=== PATIENT | female | born 1950 | race Caucasian/White ===

== ENCOUNTER → 2017-10-31 16:16 | Outpatient (CLI) | payer MEDICARE, MEDICAID, SELFPAY ==
[2017-10-31 16:58] LABS: Hemoglobin A1C 7.4 % (0.0-7.0)
[2017-10-31 17:09] LABS: Alanine Aminotransferase 203 U/L (12-78); Albumin Level 4.1 gm/dL (3.4-5.0); Alkaline Phosphatase 75 U/L (46-116); Anion Gap 11.3 mEq/L (5-15); Aspartate Amino Transferase 147 U/L (15-37); Bilirubin,Total 0.6 mg/dL (0.2-1.0); Blood Urea Nitrogen 16 mg/dL (7-18); Calcium 9.2 mg/dL (8.5-10.1); Carbon Dioxide 30 mmol/L (21.0-32.0); Chloride 107 mmol/L (98-107); Chol/HDL Ratio 4.8 (1-3.5); Cholesterol 184 mg/dL (140-200); Creatinine,Serum 0.65 mg/dL (0.55-1.02); Estimated Glomerular Filt Rate 90 ml/min (>60); GFR (African American) 109 ML/MIN (>60); Glucose 106 mg/dL (74-106); HDL Cholesterol 38 mg/dL (29-89); LDL Cholesterol 108 mg/dL (0-130); Potassium 4.3 mmoL/L (3.5-5.1); Sodium 144 mmol/L (136-145); Total Protein,Serum 8.1 gm/dL (6.4-8.2); Triglycerides 188 mg/dL (30-200); VLDL Cholesterol 38 mg/dL (0-40)
== END ==
PROVIDERS: Visit Provider Internal Medicine Adolescent Medicine
DX: E11.69 Type 2 diabetes mellitus with other specified complication (principal); E11.9 Type 2 diabetes mellitus without complications
CPT/HCPCS: 36415; 80053; 80061; 83036

== ENCOUNTER → 2017-11-07 08:29 | Outpatient (CLI) | payer MEDICARE, MEDICAID, SELFPAY ==
--- NOTE | 2017-11-07 09:00 | US_ITS ---
US liver & RUQ HISTORY: Abnormal LFTs. Gallbladder removed several years ago. ITS.REASON: ELEVATED LIVER ENZYMES ORDERING PHYSICIAN: Jean Kwan MD PATIENT AGE: 67 years TECHNIQUE. Ultrasound right upper quadrant performed including liver and other organs. COMPARISON: Ultrasound right upper quadrant December 2016. FINDINGS: This a difficult exam. Difficult to penetrate with ultrasound No ascites evident the abdomen PANCREAS:Not well seen but No obvious mass or abnormal fluid collection. No evident ductal dilatation LIVER:. Increased echogenicity throughout reflect a diffuse fatty change.. No focal lesions with ultrasound . I would note that in [address] studies showed a hypoechoic area at the posterior right lobe the liver on a least 2.5 cm, felt to be due to fatty sparing or hemangioma. We do not appreciate this feature on today's ultrasound the CT or MRI may be of benefit to further evaluate liver, in follow-up . No intrahepatic biliary ductal dilatation evident portal vein unremarkable normal size and flow direction Common duct normal diameter and hilum of liver roughly 3 mm. No ductal dilatation. RIGHT KIDNEY:Unremarkable. Normal size and echogenicity. No hydronephrosis GALLBLADDER:Surgically removed. . IMPRESSION:========= 1. Prominent diffuse fatty changes in liver. Hepatic steatosis. This makes it somewhat difficult to penetrate liver ultrasound imaging. Note comments in text.-may want to consider a follow-up CT or MRI to further better image the liver 2. Gallbladder surgically removed. No biliary ductal dilatation
== END ==
PROVIDERS: Family Provider Internal Medicine Adolescent Medicine; PCP Internal Medicine Adolescent Medicine; Visit Provider Internal Medicine Adolescent Medicine
DX: R74.8 Abnormal levels of other serum enzymes (principal)
CPT/HCPCS: 76705

== ENCOUNTER → 2017-11-17 09:31 | Outpatient (CLI) | payer MEDICARE, MEDICAID, SELFPAY ==
--- NOTE | 2017-11-17 09:32 | MR_ITS ---
MR abdomen wo/w con HISTORY: ITS.REASON: ELEVATED LIVER ENZYMES, LIVER MASS, prior abnormal CT scan ORDERING PHYSICIAN: Jean Kwan MD PATIENT AGE: 67 years Comparison: CT scan of 03/29/2014 TECHNIQUE: Standard multiplanar multiecho sequences are performed without and with gadolinium enhancement. FINDINGS: Within the hepatic dome posteriorly there is a 1.6 cm macrolobulated lesion which demonstrates decreased T1 and intense increased T2 signal. This corresponds to the previously described abnormality on the CT scan. This shows some delayed enhancement. There is a mild degree of motion artifact which does somewhat obscure fine detail. No other liver lesions are evident. The spleen, adrenal glands, kidneys and pancreas have an unremarkable appearance. No biliary dilatation. There has been prior cholecystectomy. IMPRESSION: 1.6 cm macro lobular lesion involves the posterior segment of the right hepatic lobe/segment 7 superiorly showing delayed enhancement as well as increased T2 and increased diffusion signal. This may represent a hemangioma. Recommend 6 month follow-up to confirm stability.
--- NOTE | 2017-11-17 10:57 | HMH.ITSHM ---
METFORMIN LISINOPRIL LOVADINE DIGOXIN
== END ==
PROVIDERS: Family Provider Internal Medicine Adolescent Medicine; PCP Internal Medicine Adolescent Medicine; Visit Provider Internal Medicine Adolescent Medicine
DX: R16.0 Hepatomegaly, not elsewhere classified (principal); R74.8 Abnormal levels of other serum enzymes
CPT/HCPCS: 74183; A9576

== ENCOUNTER → 2018-02-04 10:33 | Outpatient (CLI) | payer MEDICARE, MEDICAID, SELFPAY ==
[2018-02-04 12:49] LABS: Hemoglobin A1C 7.2 % (0.0-7.0)
[2018-02-04 12:59] LABS: Alanine Aminotransferase 201 U/L (12-78); Alkaline Phosphatase 68 U/L (46-116); Anion Gap 9.4 mEq/L (5-15); Aspartate Amino Transferase 127 U/L (15-37); Bilirubin,Total 0.4 mg/dL (0.2-1.0); Blood Urea Nitrogen 19 mg/dL (7-18); Calcium 8.9 mg/dL (8.5-10.1); Carbon Dioxide 31 mmol/L (21.0-32.0); Chloride 102 mmol/L (98-107); Creatinine,Serum 0.58 mg/dL (0.55-1.02); Estimated Glomerular Filt Rate 103 ml/min (>60); GFR (African American) 125 ML/MIN (>60); Globulin 3.9 gm/dl (1.3-3.2); Glucose 127 mg/dL (74-106); Potassium 4.4 mmoL/L (3.5-5.1); Sodium 138 mmol/L (136-145); Total Protein,Serum 7.9 gm/dL (6.4-8.2)
== END ==
PROVIDERS: PCP Internal Medicine Adolescent Medicine; Visit Provider Internal Medicine Adolescent Medicine
DX: E11.9 Type 2 diabetes mellitus without complications (principal)
CPT/HCPCS: 36415; 80053; 83036

== ENCOUNTER → 2018-02-13 13:16 | Outpatient (CLI) | payer MEDICARE, MEDICAID, SELFPAY ==
[2018-02-13 13:53] LABS: Basophils % 0.3 % (0.1-2.0); Eosinophils % 0.4 % (0.1-12.0); Hematocrit 41.4 % (37.0-47.0); Hemoglobin 13.5 g/dL (12.2-16.2); Lymphocytes % 19.4 K/mm3 (10-50); Mean Corpuscular HGB Conc 32.5 g/dL (31.8-35.4); Mean Corpuscular Hemoglobin 29.6 pg (27.0-31.2); Mean Corpuscular Volume 91.2 fl (81-99); Mean Platelet Volume 9.3 fl (7.4-10.4); Monocytes # 0.5 K/mm3 (0.1-1.0); Monocytes % 4.7 % (1.7-9.3); Neutrophils # 7.6 K/mm3 (1.8-7.8); Neutrophils % 75.1 % (37.0-80.0); Platelet Count 166 K/mm3 (142-424); Red Blood Count 4.54 M/mm3 (4.20-5.40); White Blood Count 10.1 K/mm3 (4.8-10.8)
[2018-02-13 17:38] LABS: Alanine Aminotransferase 200 U/L (12-78); Albumin Level 4.2 gm/dL (3.4-5.0); Alkaline Phosphatase 69 U/L (46-116); Anion Gap 13.4 mEq/L (5-15); Aspartate Amino Transferase 138 U/L (15-37); Bilirubin,Total 0.6 mg/dL (0.2-1.0); Blood Urea Nitrogen 19 mg/dL (7-18); Carbon Dioxide 29 mmol/L (21.0-32.0); Chloride 103 mmol/L (98-107); Estimated Glomerular Filt Rate 83 ml/min (>60); GFR (African American) 100 ML/MIN (>60); Globulin 4.2 gm/dl (1.3-3.2); Glucose 112 mg/dL (74-106); Potassium 4.4 mmoL/L (3.5-5.1); Sodium 141 mmol/L (136-145); Total Protein,Serum 8.4 gm/dL (6.4-8.2)
== END ==
PROVIDERS: PCP Internal Medicine Adolescent Medicine; Visit Provider Internal Medicine Adolescent Medicine
DX: E11.9 Type 2 diabetes mellitus without complications (principal); R94.5 Abnormal results of liver function studies
CPT/HCPCS: 36415; 80053; 83036; 85025

== ENCOUNTER → 2018-02-27 13:07 | Outpatient (POV) | payer MEDICARE, MEDICAID, SELFPAY ==
[2018-02-27 16:19] LABS: Basophils % 0.5 % (0.1-2.0); Eosinophils # 0.1 K/mm3 (0.0-0.4); Eosinophils % 0.6 % (0.1-12.0); Hematocrit 38.3 % (37.0-47.0); Hemoglobin 12.6 g/dL (12.2-16.2); Lymphocytes # 2.3 K/mm3 (0.7-4.5); Lymphocytes % 26.3 % (10-50); Mean Corpuscular Hemoglobin 29.7 pg (27.0-31.2); Mean Corpuscular Volume 90.1 fl (81-99); Mean Platelet Volume 9.6 fl (7.4-10.4); Monocytes # 0.4 K/mm3 (0.1-1.0); Monocytes % 4.6 % (1.7-9.3); Neutrophils # 5.9 K/mm3 (1.8-7.8); Platelet Count 156 K/mm3 (142-424); Red Blood Count 4.25 M/mm3 (4.20-5.40); Red Cell Distribution Width 13.2 % (11.5-17.5); White Blood Count 8.7 K/mm3 (4.8-10.8)
[2018-02-27 16:22] LABS: INR 0.99 (0.9-1.1); Prothrombin Time 10.2 seconds (9.4-11.8)
[2018-02-27 17:17] LABS: Alanine Aminotransferase 205 U/L (12-78); Alkaline Phosphatase 69 U/L (46-116); Anion Gap 13.1 mEq/L (5-15); Aspartate Amino Transferase 157 U/L (15-37); Bilirubin,Total 0.6 mg/dL (0.2-1.0); Blood Urea Nitrogen 16 mg/dL (7-18); Calcium 8.9 mg/dL (8.5-10.1); Carbon Dioxide 30 mmol/L (21.0-32.0); Chloride 101 mmol/L (98-107); Creatinine,Serum 0.68 mg/dL (0.55-1.02); Estimated Glomerular Filt Rate 86 ml/min (>60); Ferritin 343 ng/mL (8-388); GFR (African American) 104 ML/MIN (>60); Glucose 100 mg/dL (74-106); Potassium 4.1 mmoL/L (3.5-5.1); Sodium 140 mmol/L (136-145)
[2018-03-01 09:16] LABS: Iron 59 ug/dL (27-139); UIBC 218 ug/dL (118-369)
[2018-03-01 09:18] LABS: Iron Saturation 21 % (15-55)
[2018-03-01 11:18] LABS: Ceruloplasmin 22.5 mg/dL (19.0-39.0); Hep A Ab, IgM Negative (Negative); Hepatitis B Core Antibody IgM Negative (Negative); Hepatitis B Surface Antigen Negative (Negative); Immunoglobulin A, Qn 169 mg/dL (87-352); Immunoglobulin G, Qn 1876 mg/dL (700-1600)
[2018-03-01 15:18] LABS: Angiotensin Converting Enzyme <15 U/L (14-82)
[2018-03-02 06:59] LABS: Actin (Smooth Muscle) Antibody 7 Units (0-19); Antinuclear Antibodies, IFA Positive (.); Deamidated Gliadin Abs, IgA 3 units (0-19); Deamidated Gliadin Abs, IgG 2 units (0-19); Endomysial IgA Antibody Negative (Negative); Hepatitis C Antibody <0.1 s/co ratio (0.0-0.9); Immunoglobulin M, Qn 78 mg/dL (26-217); Liver-Kidney Microsomal Ab <1.0 Units (0.0-20.0); Mitochondrial (M2) Antibody <20.0 Units (0.0-20.0); Tissue Transglutaminase IgA Ab <2 U/mL (0-3); Tissue Transglutaminase IgG Ab <2 U/mL (0-5)
[2018-03-03 07:05] LABS: Reticulin IgA Antibody Negative titer (Neg:<1:2.5)
[2018-03-04 09:27] LABS: ALT (SGPT) P5P 184 IU/L (0-40); AST (SGOT) P5P 164 IU/L (0-40); Alpha 2-Macroglobulins, Qn 143 mg/dL (110-276); Apolipoprotein A-1 131 mg/dL (116-209); Bilirubin, Total 0.3 mg/dL (0.0-1.2); Cholesterol, Total 163 mg/dL (100-199); GGT 89 IU/L (0-60); Glucose 104 mg/dL (65-99); Haptoglobin 138 mg/dL (34-200); NASH Score 0.75 (0.25); Steatosis Score 0.89 (0.00-0.30); Triglycerides 177 mg/dL (0-149)
[2018-03-06 13:18] LABS: Alpha-1-Antitrypsin 166 mg/dL (90-200)
== END ==
PROVIDERS: Visit Provider Nurse Practitioner Acute Care
DX: K76.0 Fatty (change of) liver, not elsewhere classified (principal); R94.5 Abnormal results of liver function studies
CPT/HCPCS: 36415; 80053; 80074; 81256; 82103; 82104; 82164; 82390; 82728; 82784; 83516; 83540; 83550; 85025; 85610; 86038; 86255; 86256; 86376

== ENCOUNTER → 2018-05-01 10:46 | Outpatient (POV) | payer MEDICARE, MEDICAID, SELFPAY ==
[2018-05-01 11:49] LABS: Basophils # 0.1 K/mm3 (0-0.2); Basophils % 0.5 % (0.1-2.0); Eosinophils # 0.1 K/mm3 (0.0-0.4); Eosinophils % 0.8 % (0.1-12.0); Hematocrit 41.5 % (37.0-47.0); Hemoglobin 13.5 g/dL (12.2-16.2); Lymphocytes # 2.1 K/mm3 (0.7-4.5); Lymphocytes % 23.7 % (10-50); Mean Corpuscular HGB Conc 32.5 g/dL (31.8-35.4); Mean Corpuscular Hemoglobin 29.9 pg (27.0-31.2); Mean Platelet Volume 9.4 fl (7.4-10.4); Monocytes # 0.6 K/mm3 (0.1-1.0); Monocytes % 6.4 % (1.7-9.3); Neutrophils % 68.6 % (37.0-80.0); Platelet Count 140 K/mm3 (142-424); Red Blood Count 4.51 M/mm3 (4.20-5.40); Red Cell Distribution Width 13.5 % (11.5-17.5); White Blood Count 8.7 K/mm3 (4.8-10.8)
[2018-05-01 12:30] LABS: Hemoglobin A1C 7.2 % (0.0-7.0)
[2018-05-01 15:04] LABS: Alanine Aminotransferase 225 U/L (12-78); Albumin Level 3.9 gm/dL (3.4-5.0); Albumin/Globulin Ratio 0.9 (1.1-1.8); Alkaline Phosphatase 93 U/L (46-116); Anion Gap 11.2 mEq/L (5-15); Aspartate Amino Transferase 134 U/L (15-37); Bilirubin,Total 0.4 mg/dL (0.2-1.0); Blood Urea Nitrogen 22 mg/dL (7-18); Calcium 8.3 mg/dL (8.5-10.1); Carbon Dioxide 29 mmol/L (21.0-32.0); Chloride 103 mmol/L (98-107); Creatinine,Serum 0.66 mg/dL (0.55-1.02); Estimated Glomerular Filt Rate 89 ml/min (>60); GFR (African American) 107 ML/MIN (>60); Globulin 4.2 gm/dl (1.3-3.2); Glucose 144 mg/dL (74-106); Potassium 4.2 mmoL/L (3.5-5.1); Sodium 139 mmol/L (136-145); Total Protein,Serum 8.1 gm/dL (6.4-8.2)
== END ==
PROVIDERS: Visit Provider Nurse Practitioner Acute Care
DX: R94.5 Abnormal results of liver function studies (principal); Z79.899 Other long term (current) drug therapy
CPT/HCPCS: 36415; 80053; 83036; 85025

== ENCOUNTER → 2018-06-06 09:49 | Outpatient (CLI) | payer MEDICARE, MEDICAID, SELFPAY ==
[2018-06-06 10:56] LABS: Basophils % 0.4 % (0.1-2.0); Eosinophils # 0.1 K/mm3 (0.0-0.4); Eosinophils % 0.6 % (0.1-12.0); Hematocrit 40.2 % (37.0-47.0); Lymphocytes % 21.7 % (10-50); Mean Corpuscular HGB Conc 32.2 g/dL (31.8-35.4); Mean Corpuscular Hemoglobin 29.9 pg (27.0-31.2); Mean Corpuscular Volume 92.9 fl (81-99); Mean Platelet Volume 9.3 fl (7.4-10.4); Monocytes # 0.5 K/mm3 (0.1-1.0); Monocytes % 4.8 % (1.7-9.3); Neutrophils # 6.8 K/mm3 (1.8-7.8); Neutrophils % 72.5 % (37.0-80.0); Platelet Count 142 K/mm3 (142-424); Red Blood Count 4.33 M/mm3 (4.20-5.40); Red Cell Distribution Width 13.3 % (11.5-17.5); White Blood Count 9.4 K/mm3 (4.8-10.8)
[2018-06-06 11:17] LABS: Alanine Aminotransferase 254 U/L (12-78); Albumin Level 3.8 gm/dL (3.4-5.0); Alkaline Phosphatase 64 U/L (46-116); Anion Gap 10.1 mEq/L (5-15); Aspartate Amino Transferase 145 U/L (15-37); Bilirubin,Total 0.4 mg/dL (0.2-1.0); Blood Urea Nitrogen 20 mg/dL (7-18); Carbon Dioxide 32 mmol/L (21.0-32.0); Chloride 102 mmol/L (98-107); Creatinine,Serum 0.66 mg/dL (0.55-1.02); Estimated Glomerular Filt Rate 89 ml/min (>60); GFR (African American) 107 ML/MIN (>60); Globulin 3.8 gm/dl (1.3-3.2); Glucose 125 mg/dL (74-106); Potassium 4.1 mmoL/L (3.5-5.1); Sodium 140 mmol/L (136-145); Total Protein,Serum 7.6 gm/dL (6.4-8.2)
== END ==
PROVIDERS: Visit Provider Nurse Practitioner Acute Care
DX: R94.5 Abnormal results of liver function studies (principal)
CPT/HCPCS: 36415; 80053; 85025

== ENCOUNTER → 2018-06-26 10:59 | Outpatient (CLI) | payer MEDICARE, MEDICAID, SELFPAY ==
--- NOTE | 2018-06-26 11:03 | MM_ITS ---
MM Dig screening mamm BI w/CAD CAD Screening COMPARISON: Digital mammograms with CAD 05/12/2015 and 05/19/2016 INDICATION: There is a history of breast cancer patient's mother. There has been previous biopsy right breast for benign disease. TECHNIQUE: Standard CC and MLO images were obtained. R2 CAD reviewed. FINDINGS: The nipples are somewhat inverted have been for quite some time. Moderate post biopsy scarring is seen upper outer quadrant right breast. Moderate somewhat heterogenic fibroglandular densities are seen in the central portions of both breasts. There are scattered microcalcifications in each breast. There is a mole marker left breast. There are no suspicious microcalcifications. IMPRESSION: Stable exam no suspicious lesion seen. BI-RADS Category: 1 Negative RECOMMENDED FOLLOW-UP: 1YR - 1 YEAR FOLLOW-UP (A letter has been sent to the patient regarding results of the study.)
[2018-06-26 12:00] LABS: Basophils % 0.4 % (0.1-2.0); Eosinophils # 0.1 K/mm3 (0.0-0.4); Eosinophils % 0.6 % (0.1-12.0); Hematocrit 38.8 % (37.0-47.0); Hemoglobin 12.8 g/dL (12.2-16.2); Lymphocytes # 2.4 K/mm3 (0.7-4.5); Lymphocytes % 23.7 % (10-50); Mean Corpuscular Hemoglobin 30.3 pg (27.0-31.2); Mean Corpuscular Volume 91.7 fl (81-99); Mean Platelet Volume 9.3 fl (7.4-10.4); Monocytes # 0.5 K/mm3 (0.1-1.0); Monocytes % 4.9 % (1.7-9.3); Neutrophils # 7.2 K/mm3 (1.8-7.8); Neutrophils % 70.4 % (37.0-80.0); Platelet Count 147 K/mm3 (142-424); Red Blood Count 4.23 M/mm3 (4.20-5.40); Red Cell Distribution Width 13.8 % (11.5-17.5); White Blood Count 10.3 K/mm3 (4.8-10.8)
[2018-06-26 12:34] LABS: Alanine Aminotransferase 244 U/L (12-78); Albumin Level 3.8 gm/dL (3.4-5.0); Alkaline Phosphatase 65 U/L (46-116); Anion Gap 12.4 mEq/L (5-15); Aspartate Amino Transferase 136 U/L (15-37); Bilirubin,Total 0.5 mg/dL (0.2-1.0); Blood Urea Nitrogen 20 mg/dL (7-18); Calcium 9.4 mg/dL (8.5-10.1); Carbon Dioxide 30 mmol/L (21.0-32.0); Chloride 102 mmol/L (98-107); Creatinine,Serum 0.65 mg/dL (0.55-1.02); Estimated Glomerular Filt Rate 90 ml/min (>60); GFR (African American) 109 ML/MIN (>60); Globulin 3.8 gm/dl (1.3-3.2); Glucose 106 mg/dL (74-106); Potassium 4.4 mmoL/L (3.5-5.1); Sodium 140 mmol/L (136-145); Total Protein,Serum 7.6 gm/dL (6.4-8.2)
== END ==
PROVIDERS: Nurse Practitioner Acute Care; PCP Internal Medicine Adolescent Medicine; Visit Provider Internal Medicine Adolescent Medicine
DX: Z12.31 Encounter for screening mammogram for malignant neoplasm of breast (principal); R94.5 Abnormal results of liver function studies
CPT/HCPCS: 36415; 77067; 80053; 85025

== ENCOUNTER → 2018-08-02 13:16 | Outpatient (CLI) | payer MEDICARE, MEDICAID, SELFPAY ==
[2018-08-02 13:35] LABS: Basophils % 0.3 % (0.1-2.0); Eosinophils % 0.5 % (0.1-12.0); Hematocrit 36.4 % (37.0-47.0); Hemoglobin 12.2 g/dL (12.2-16.2); Lymphocytes # 0.8 K/mm3 (0.7-4.5); Mean Corpuscular HGB Conc 33.5 g/dL (31.8-35.4); Mean Corpuscular Hemoglobin 30.1 pg (27.0-31.2); Mean Corpuscular Volume 89.8 fl (81-99); Mean Platelet Volume 9.5 fl (7.4-10.4); Monocytes # 0.3 K/mm3 (0.1-1.0); Monocytes % 4.9 % (1.7-9.3); Neutrophils # 5.4 K/mm3 (1.8-7.8); Neutrophils % 82.3 % (37.0-80.0); Platelet Count 143 K/mm3 (142-424); Red Blood Count 4.05 M/mm3 (4.20-5.40); Red Cell Distribution Width 13.4 % (11.5-17.5); White Blood Count 6.5 K/mm3 (4.8-10.8)
[2018-08-02 19:06] LABS: Alanine Aminotransferase 179 U/L (12-78); Albumin Level 4.1 gm/dL (3.4-5.0); Albumin/Globulin Ratio 1.1 (1.1-1.8); Alkaline Phosphatase 56 U/L (46-116); Anion Gap 11.9 mEq/L (5-15); Aspartate Amino Transferase 124 U/L (15-37); Bilirubin,Total 0.6 mg/dL (0.2-1.0); Blood Urea Nitrogen 17 mg/dL (7-18); Calcium 9.2 mg/dL (8.5-10.1); Carbon Dioxide 30 mmol/L (21.0-32.0); Chloride 102 mmol/L (98-107); Creatinine,Serum 0.63 mg/dL (0.55-1.02); Estimated Glomerular Filt Rate 93 ml/min (>60); GFR (African American) 113 ML/MIN (>60); Globulin 3.6 gm/dl (1.3-3.2); Glucose 146 mg/dL (74-106); Magnesium 1.8 mg/dL (1.4-2.2); Potassium 3.9 mmoL/L (3.5-5.1); Sodium 140 mmol/L (136-145); Total Protein,Serum 7.7 gm/dL (6.4-8.2)
== END ==
PROVIDERS: Visit Provider Internal Medicine Adolescent Medicine
DX: R55 Syncope and collapse (principal); R42 Dizziness and giddiness
CPT/HCPCS: 36415; 80053; 83735; 85025

== ENCOUNTER 2018-08-18 05:00 | Emergency (ER) | payer MEDICARE, MEDICAID, SELFPAY ==
[2018-08-18 05:05] VITALS: BP 175/88; PULSE 66; RESP 18; TEMP 36.8; O2SAT 99; BMI 26.9
--- NOTE | 2018-08-18 05:20 | XR_ITS ---
XR shoulder RT min 2V HISTORY: Posttraumatic pain ITS.REASON: fall ORDERING PHYSICIAN: Shaheen Laura MD PATIENT AGE: 68 years Comparison: None FINDINGS: There are mild osteoarthritic changes of the acromioclavicular joint and glenohumeral joint. No fracture or dislocation. IMPRESSION: No acute finding. Osteoarthritis
--- NOTE | 2018-08-18 06:00 | HMH.EDGENADL ---
ED Disposition Clinical Impression: Shoulder pain, right Qualifiers: Chronicity: acute Qualified Code(s): M25.511 - Pain in right shoulder Disposition: Home, Self-Care Condition on Discharge: Good Instructions: DI for Shoulder Pain Additional Instructions: ice and sling and see ortho today Referrals: Jean Kwan MD [Primary Care Provider] - - Critical Care Critical Care Time: No Attestation: On 08/18/18, the high probability of a clinically significant, sudden or life threatening deterioration of the following system(s) required my full and direct attention, intervention and personal management. The time I documented below is in addition to time spent performing reported procedures but includes the following listed in this critical care notation. Medical Decision Making - Medical Records Medical records reviewed: Yes: I reviewed the patient's medical records. - Andrzej Inquiry Pt receiving controlled substance: No Vital Signs: 08/18/18 05:05 Temperature 98.3 F Temperature Source Oral Pulse Rate [Left] 66 Respiratory Rate 18 Blood Pressure [Left Arm] 175/88 H Blood Pressure Mean [Left Arm] 117 Blood Pressure Source [Left Arm] Automatic Cuff Blood Pressure Position [Left Arm] Sitting 02 Sat by Pulse Oximetry 99 Oxygen Delivery Method Room Air Orders (Tests/Meds): ED MEDICATIONS Generic Name Dose Route Start Last Admin Trade Name Freq PRN Reason Stop Dose Admin Acetaminophen/Codeine Phosphate 1 kasandra 08/18/18 06:26 Acetaminophen W/Codeine #3 Take Home Pack (6) PO 08/18/18 06:27 ONCE ONE Discontinued Medications Generic Name Dose Route Start Last Admin Trade Name Freq PRN Reason Stop Dose Admin Dexamethasone Sodium Phosphate 8 mg 08/18/18 06:20 Decadron 4mg/Ml 1ml Vial IM 08/18/18 06:21 ONCE ONE Ketorolac Tromethamine 60 mg 08/18/18 06:20 Toradol 60mg/2ml Vial IM 08/18/18 06:21 ONCE ONE - Radiology Data #1 Image(s): Shoulder Image Reviewed: Yes I reviewed the patient's radiology image Preliminary Findings: Abnormal, No Fracture Seen - Physician Consults Physician Consulted: maritza Reason -: Pt condition General Adult HPI - General Chief complaint: PAIN Stated complaint: Right shoulder pain, fell 2 wks ago Time Seen by Provider: 08/18/18 05:30 Mode of Arrival: Ambulatory Source of Information: Patient, Medical Record Limitations: No Limitations Description of Symptoms (Recalled from ER Triage Doc. by RN): Fell 2 weeks ago and now right shoulder pain - History of Present Illness HPI narrative: fell 2 weeks ago with injury rt shoulder and increasing pain till no mov today and marked inc pain Onset (ago): day(s) Location: upper extremity Severity: moderate Consistency: constant Associated symptoms: denies other symptoms Treatments prior to arrival: none - Related Data Home Medications Medication Instructions Recorded Confirmed Digoxin [Digoxin 0.25mg Tablet] 250 mcg PO DAILY 02/01/18 08/18/18 Loratadine [Allerclear] 10 mg PO DAILY 02/01/18 08/18/18 Metoprolol Tartrate [Lopressor 12.5 mg PO DAILY 02/01/18 08/18/18 25mg tablet] Oxybutynin Chloride [Ditropan 5mg 5 mg PO BID 02/01/18 08/18/18 tablet] Venlafaxine HCl 50 mg PO BID 02/01/18 08/18/18 Ascorbate Calcium [Vitamin C] 500 mg PO DAILY 04/04/18 08/18/18 Lisinopril [Lisinopril 2.5mg Tab] 2.5 mg PO BID 04/04/18 08/18/18 Quetiapine Fumarate [Seroquel] 50 mg PO BID 04/04/18 08/18/18 LORazepam [Ativan 0.5mg 0.5 mg PO BID PRN 04/07/18 08/18/18 tablet] budesonide DR - ER 3 mg 3 mg PO DAILY 30 Days each 07/11/18 08/18/18 capsule,delayed,extended release metformin 500 mg tablet 850 mg PO BID 30 Days tab 07/11/18 08/18/18 Allergies Allergy/AdvReac Type Severity Reaction Status Date / Time acetaminophen [ACETAMINOPHEN] Allergy Mild Verified 07/11/18 09:04 aspirin Allergy Verified 07/11/18 09:04 [facility] History - Hepatitis A Screen Drug use hi
--- NOTE | 2018-08-18 06:22 | PC.NURSE ---
speaking with Dr. Garcia
[2018-08-18 06:53] VITALS: BP 156/70; PULSE 70; RESP 16; TEMP 36.9; O2SAT 98
== END 2018-08-18 06:54 | disposition home or self-care (01) ==
PROVIDERS: Emergency Provider Emergency Medicine; PCP Internal Medicine Adolescent Medicine
DX: M25.511 Pain in right shoulder (principal); I10 Essential (primary) hypertension; E11.9 Type 2 diabetes mellitus without complications; F41.9 Anxiety disorder, unspecified; Z90.49 Acquired absence of other specified parts of digestive tract
CPT/HCPCS: 73030; 96372; 99283

== ENCOUNTER → 2018-10-24 10:07 | Outpatient (CLI) | payer MEDICARE, MEDICAID, SELFPAY ==
[2018-10-24 11:01] LABS: Alanine Aminotransferase 134 U/L (12-78); Albumin Level 3.8 gm/dL (3.4-5.0); Albumin/Globulin Ratio 1.1 (1.1-1.8); Alkaline Phosphatase 62 U/L (46-116); Anion Gap 9.9 mEq/L (5-15); Aspartate Amino Transferase 95 U/L (15-37); Bilirubin,Total 0.4 mg/dL (0.2-1.0); Blood Urea Nitrogen 17 mg/dL (7-18); Carbon Dioxide 33 mmol/L (21.0-32.0); Chloride 104 mmol/L (98-107); Creatinine,Serum 0.66 mg/dL (0.55-1.02); Estimated Glomerular Filt Rate 89 ml/min (>60); GFR (African American) 107 ML/MIN (>60); Globulin 3.6 gm/dl (1.3-3.2); Glucose 98 mg/dL (74-106); Potassium 4.9 mmoL/L (3.5-5.1); Sodium 142 mmol/L (136-145); Total Protein,Serum 7.4 gm/dL (6.4-8.2)
== END ==
PROVIDERS: Visit Provider Internal Medicine Gastroenterology
DX: R94.5 Abnormal results of liver function studies (principal); K75.81 Nonalcoholic steatohepatitis (NASH)
CPT/HCPCS: 36415; 80053

== ENCOUNTER → 2019-01-10 09:48 | Outpatient (CLI) | payer MEDICARE, MEDICAID, SELFPAY ==
[2019-01-10 11:35] LABS: Alanine Aminotransferase 116 U/L (12-78); Alkaline Phosphatase 59 U/L (46-116); Anion Gap 11.5 mEq/L (5-15); Aspartate Amino Transferase 92 U/L (15-37); Bilirubin,Total 0.3 mg/dL (0.2-1.0); Blood Urea Nitrogen 21 mg/dL (7-18); Calcium 9.4 mg/dL (8.5-10.1); Carbon Dioxide 31 mmol/L (21.0-32.0); Chloride 101 mmol/L (98-107); Creatinine,Serum 0.64 mg/dL (0.55-1.02); Estimated Glomerular Filt Rate 92 ml/min (>60); GFR (African American) 111 ML/MIN (>60); Glucose 109 mg/dL (74-106); Potassium 4.5 mmoL/L (3.5-5.1); Sodium 139 mmol/L (136-145)
== END ==
PROVIDERS: Visit Provider Internal Medicine Gastroenterology
DX: R94.5 Abnormal results of liver function studies (principal); K75.81 Nonalcoholic steatohepatitis (NASH)
CPT/HCPCS: 36415; 80053

== ENCOUNTER → 2019-04-16 11:19 | Outpatient (CLI) | payer MEDICARE, OTHER, SELFPAY ==
[2019-04-16 11:53] LABS: Basophils % 0.3 % (0.1-2.0); Eosinophils % 0.1 % (0.1-12.0); Hematocrit 42.4 % (37.0-47.0); Hemoglobin 13.2 g/dL (12.2-16.2); Lymphocytes # 1.3 K/mm3 (0.7-4.5); Lymphocytes % 10.3 % (10-50); Mean Corpuscular HGB Conc 31.2 g/dL (31.8-35.4); Mean Corpuscular Hemoglobin 28.6 pg (27.0-31.2); Mean Corpuscular Volume 91.6 fl (81-99); Mean Platelet Volume 9.1 fl (7.4-10.4); Monocytes # 0.6 K/mm3 (0.1-1.0); Monocytes % 5.3 % (1.7-9.3); Neutrophils # 10.2 K/mm3 (1.8-7.8); Platelet Count 192 K/mm3 (142-424); Red Blood Count 4.63 M/mm3 (4.20-5.40); Red Cell Distribution Width 13.9 % (11.5-17.5); White Blood Count 12.2 K/mm3 (4.8-10.8)
[2019-04-16 12:41] LABS: Alanine Aminotransferase 146 U/L (12-78); Albumin Level 4.4 gm/dL (3.4-5.0); Albumin/Globulin Ratio 1.1 (1.1-1.8); Alkaline Phosphatase 64 U/L (46-116); Anion Gap 14.4 mEq/L (5-15); Aspartate Amino Transferase 99 U/L (15-37); Bilirubin,Total 0.5 mg/dL (0.2-1.0); Blood Urea Nitrogen 18 mg/dL (7-18); Calcium 9.1 mg/dL (8.5-10.1); Carbon Dioxide 29 mmol/L (21.0-32.0); Chloride 102 mmol/L (98-107); Estimated Glomerular Filt Rate 82 ml/min (>60); GFR (African American) 100 ML/MIN (>60); Globulin 3.9 gm/dl (1.3-3.2); Glucose 145 mg/dL (74-106); Potassium 4.4 mmoL/L (3.5-5.1); Sodium 141 mmol/L (136-145); Total Protein,Serum 8.3 gm/dL (6.4-8.2)
== END ==
PROVIDERS: PCP Internal Medicine Adolescent Medicine; Visit Provider Internal Medicine Gastroenterology
DX: E11.9 Type 2 diabetes mellitus without complications (principal); I10 Essential (primary) hypertension; K75.81 Nonalcoholic steatohepatitis (NASH); R94.5 Abnormal results of liver function studies; Z79.84 Long term (current) use of oral hypoglycemic drugs
CPT/HCPCS: 36415; 80053; 83036; 85025

== ENCOUNTER → 2019-06-25 08:50 | Outpatient (CLI) | payer MEDICARE, OTHER, SELFPAY | PROVIDERS: PCP Internal Medicine Adolescent Medicine; Visit Provider Internal Medicine Adolescent Medicine | DX: Z12.31 Encounter for screening mammogram for malignant neoplasm of breast (principal) ==

== ENCOUNTER → 2019-07-17 09:18 | Outpatient (CLI) | payer MEDICARE, OTHER, SELFPAY ==
--- NOTE | 2019-07-17 09:21 | MM_ITS ---
PROCEDURE: MM DIG SCREENING MAMM BI W/CAD Digital Breast Tomosynthesis Included CLINICAL INDICATION: SCREENING COMPARISON: [facility] DIG MAMM-SCREEN SHARA from 05/12/2015 [facility] DIG MAMM-SCREEN SHARA W/CAD from 05/19/2016 [facility] MM Dig screening mamm BI w/CAD from 06/26/2018 TECHNIQUE: Standard CC and MLO images and 3D Tomosynthesis was obtained. R2 CAD reviewed. FINDINGS: The breasts are heterogeneously dense. Nipples are inverted similar to previous exams. Post biopsy scarring is seen in the upper-outer quadrant of the right breast. Multiple microcalcifications are seen in both breasts greatest in the left breast. There are additionally some macrocalcifications in the left breast. The calcifications are not significantly changed. There are no suspicious new clusters of microcalcifications or spiculated masses suspicious for malignancy. IMPRESSION: BI-RAD Category: 2 Benign Finding(s) FOLLOW-UP: 1YR 1 Year Follow-up (A letter has been sent to the patient regarding results of the study.) Dictated by: Ambrocio Rashid 07/17/2019 10:19 Electronically signed by Ambrocio Rashid in [facility] 07/17/2019 10:19
== END ==
PROVIDERS: PCP Internal Medicine Adolescent Medicine; Visit Provider Internal Medicine Adolescent Medicine
DX: Z12.31 Encounter for screening mammogram for malignant neoplasm of breast (principal)
CPT/HCPCS: 77063; 77067

== ENCOUNTER → 2019-08-15 11:59 | Outpatient (CLI) | payer MEDICARE, OTHER, SELFPAY ==
[2019-08-15 12:39] LABS: Basophils # 0.1 K/mm3 (0-0.2); Basophils % 0.7 % (0.1-2.0); Eosinophils # 0.1 K/mm3 (0.0-0.4); Eosinophils % 0.6 % (0.1-12.0); Hematocrit 39.1 % (37.0-47.0); Hemoglobin 12.7 g/dL (12.2-16.2); Lymphocytes # 2.3 K/mm3 (0.7-4.5); Lymphocytes % 23.2 % (10-50); Mean Corpuscular HGB Conc 32.6 g/dL (31.8-35.4); Mean Corpuscular Hemoglobin 29.6 pg (27.0-31.2); Mean Corpuscular Volume 90.8 fl (81-99); Mean Platelet Volume 9.4 fl (7.4-10.4); Monocytes # 0.5 K/mm3 (0.1-1.0); Monocytes % 4.6 % (1.7-9.3); Neutrophils % 70.8 % (37.0-80.0); Platelet Count 168 K/mm3 (142-424); Red Cell Distribution Width 13.1 % (11.5-17.5); White Blood Count 9.9 K/mm3 (4.8-10.8)
[2019-08-15 12:46] LABS: Hemoglobin A1C 5.7 % (4.0-6.0)
[2019-08-15 12:59] LABS: Alanine Aminotransferase 126 U/L (12-78); Albumin Level 4.6 g/dl (3.5-5.0); Albumin/Globulin Ratio 1.4 (1.1-1.8); Alkaline Phosphatase 55 U/L (38-126); Anion Gap 12.4 mEq/L (5-15); Aspartate Amino Transferase 114 U/L (14-36); Bilirubin,Total 0.3 mg/dl (0.2-1.3); Blood Urea Nitrogen 20 mg/dl (7-17); Calcium 9.6 mg/dl (8.4-10.2); Carbon Dioxide 31 mmol/L (22.0-30.0); Chloride 100 mmol/L (98-107); Estimated Glomerular Filt Rate 122 ml/min (>60); GFR (African American) 147 ML/MIN (>60); Globulin 3.4 g/dL (1.3-3.2); Glucose 104 mg/dl (74-100); HDL Cholesterol 43 mg/dl (40-60); Potassium 4.4 mmoL/L (3.5-5.1); Sodium 139 mmol/L (136-145)
[2019-08-15 13:04] LABS: Triglycerides 167 mg/dl (30-150); VLDL Cholesterol 33 mg/dL (0-40)
[2019-08-15 13:05] LABS: Chol/HDL Ratio 4.4 (1-3.5); Cholesterol 189 mg/dl (140-200)
[2019-08-15 13:10] LABS: Direct LDL Cholesterol 121.49 mg/dL (100-129)
[2019-08-15 13:29] LABS: Thyroid Stimulating Hormone 1.82 uIU/mL (0.465-4.68)
== END ==
PROVIDERS: Visit Provider Internal Medicine Adolescent Medicine
DX: E11.69 Type 2 diabetes mellitus with other specified complication (principal); I47.1 Supraventricular tachycardia; Z79.84 Long term (current) use of oral hypoglycemic drugs
CPT/HCPCS: 36415; 80053; 80061; 80162; 83036; 84443; 85025

== ENCOUNTER → 2019-12-17 10:12 | Outpatient (CLI) | payer MEDICARE, OTHER, SELFPAY ==
[2019-12-17 10:32] LABS: Basophils % 0.4 % (0.1-2.0); Eosinophils # 0.1 K/mm3 (0.0-0.4); Eosinophils % 1.4 % (0.1-12.0); Hematocrit 36.7 % (37.0-47.0); Hemoglobin 12.4 g/dL (12.2-16.2); Lymphocytes # 2.2 K/mm3 (0.7-4.5); Lymphocytes % 23.3 % (10-50); Mean Corpuscular HGB Conc 33.8 g/dL (31.8-35.4); Mean Corpuscular Hemoglobin 30.2 pg (27.0-31.2); Mean Corpuscular Volume 89.5 fl (81-99); Mean Platelet Volume 9.7 fl (7.4-10.4); Monocytes # 0.5 K/mm3 (0.1-1.0); Monocytes % 5.6 % (1.7-9.3); Neutrophils # 6.4 K/mm3 (1.8-7.8); Neutrophils % 69.3 % (37.0-80.0); Platelet Count 138 K/mm3 (142-424); Red Blood Count 4.11 M/mm3 (4.20-5.40); Red Cell Distribution Width 13.5 % (11.5-17.5); White Blood Count 9.3 K/mm3 (4.8-10.8)
[2019-12-17 11:00] LABS: Hemoglobin A1C 6.3 % (4.0-6.0)
[2019-12-17 11:08] LABS: Alanine Aminotransferase 111 U/L (12-78); Albumin Level 4.3 g/dl (3.5-5.0); Albumin/Globulin Ratio 1.2 (1.1-1.8); Alkaline Phosphatase 68 U/L (38-126); Anion Gap 12.5 mEq/L (5-15); Aspartate Amino Transferase 96 U/L (14-36); Bilirubin,Total 0.4 mg/dl (0.2-1.3); Blood Urea Nitrogen 16 mg/dl (7-17); Calcium 9.4 mg/dl (8.4-10.2); Carbon Dioxide 33 mmol/L (22.0-30.0); Chloride 100 mmol/L (98-107); Chol/HDL Ratio 4.4 (1-3.5); Cholesterol 164 mg/dl (140-200); Estimated Glomerular Filt Rate 99 ml/min (>60); GFR (African American) 119 ML/MIN (>60); Globulin 3.5 g/dL (1.3-3.2); Glucose 117 mg/dl (74-100); HDL Cholesterol 37 mg/dl (40-60); Potassium 4.5 mmoL/L (3.5-5.1); Sodium 141 mmol/L (136-145); Total Protein,Serum 7.8 g/dl (6.3-8.2); Triglycerides 138 mg/dl (30-150); VLDL Cholesterol 28 mg/dL (0-40)
[2019-12-17 11:19] LABS: Direct LDL Cholesterol 94.55 mg/dL (100-129)
== END ==
PROVIDERS: Visit Provider Internal Medicine Adolescent Medicine
DX: E11.69 Type 2 diabetes mellitus with other specified complication; K63.5 Polyp of colon; Z79.84 Long term (current) use of oral hypoglycemic drugs
CPT/HCPCS: 36415; 80053; 80061; 83036; 85025

== ENCOUNTER → 2020-01-28 14:08 | Outpatient (POV) | payer MEDICARE, OTHER, SELFPAY | PROVIDERS: Visit Provider Nurse Practitioner Family | DX: Z00.00 Encounter for general adult medical examination without abnormal findings (principal) ==

== ENCOUNTER → 2020-02-14 12:28 | Outpatient (CLI) | payer MEDICARE, OTHER, SELFPAY ==
[2020-02-15 12:20] LABS: Covid-19 Nasal PCR Sendout Lex Not Detected
== END ==
PROVIDERS: PCP Internal Medicine Adolescent Medicine; Visit Provider Nurse Practitioner Family
DX: Z03.818 Encounter for observation for suspected exposure to other biological agents ruled out (principal); R05 Cough
CPT/HCPCS: U0004

== ENCOUNTER 2020-02-17 14:48 | Emergency (ER) | payer MEDICARE, OTHER, SELFPAY ==
[2020-02-17 14:49] VITALS: BP 189/58; PULSE 74; RESP 17; TEMP 36.6; O2SAT 98; BMI 25.7
[2020-02-17 15:08] LABS: Microscopic, Urine URINE MICROSCOPIC (MICROSCOPIC)
[2020-02-17 15:09] LABS: Appearance,Urine CLEAR (Clear); Bilirubin,Urine Negative (Negative); Blood, Urine 2+ (Negative); Color,Urine YELLOW (Yellow); Glucose,Urine (UA) Negative (Negative); Ketones,Urine TRACE (Negative); Leukocyte Esterase,Urine Negative (Negative); Nitrate,Urine Negative (Negative); PH,Urine 5.5 (5.0-8.5); Protein,Urine 1+ (Negative); Specific Gravity, Urine >= 1.030 (1.005-1.030); Urobilinogen,Urine 0.2 EU/dl (0.2)
--- NOTE | 2020-02-17 15:13 | ECG_ITS ---
APPROVED REPORT Exam: Resting ECG HR:68 bpm ECG Measurements Heart Rate 68 AXES OH 154 P 62 QRSd 84 QRS 62 QT 394 T 52 QTc 418 Conclusion Normal sinus rhythm Junctional ST depression, probably normal Borderline ECG Electronically signed by : Jean Kwan, 02/19/2020 14:48:06
[2020-02-17 15:23] LABS: Amorphous Sediment,Urine 1+ /lpf; WBC,Urine Occasional #/hpf (0-3)
[2020-02-17 15:24] LABS: Coarse Granular Casts,Urine Occasional #/lpf (0)
[2020-02-17 15:26] VITALS: BP 165/64; PULSE 66; O2SAT 97
[2020-02-17 15:31] LABS: Basophils # 0.1 K/mm3 (0-0.2); Basophils % 0.6 % (0.1-2.0); Eosinophils # 0.2 K/mm3 (0.0-0.4); Eosinophils % 1.3 % (0.1-12.0); Hematocrit 39.7 % (37.0-47.0); Lymphocytes % 16.2 % (10-50); Mean Corpuscular HGB Conc 32.6 g/dL (31.8-35.4); Mean Corpuscular Hemoglobin 29.8 pg (27.0-31.2); Mean Corpuscular Volume 91.2 fl (81-99); Mean Platelet Volume 9.2 fl (7.4-10.4); Monocytes # 0.5 K/mm3 (0.1-1.0); Monocytes % 4.1 % (1.7-9.3); Neutrophils # 9.4 K/mm3 (1.8-7.8); Neutrophils % 77.9 % (37.0-80.0); Platelet Count 192 K/mm3 (142-424); Red Blood Count 4.36 M/mm3 (4.20-5.40); Red Cell Distribution Width 14.1 % (11.5-17.5); White Blood Count 12.1 K/mm3 (4.8-10.8)
[2020-02-17 15:42] LABS: Alanine Aminotransferase 459 U/L (12-78); Albumin Level 4.4 g/dl (3.5-5.0); Albumin/Globulin Ratio 1.2 (1.1-1.8); Alkaline Phosphatase 102 U/L (38-126); Anion Gap 11.1 mEq/L (5-15); Aspartate Amino Transferase 391 U/L (14-36); Bilirubin,Total 0.6 mg/dl (0.2-1.3); Blood Urea Nitrogen 21 mg/dl (7-17); Calcium 9.6 mg/dl (8.4-10.2); Carbon Dioxide 32 mmol/L (22.0-30.0); Chloride 101 mmol/L (98-107); Creatinine Clearance Estimated 57 mL/min (50-200); Estimated Glomerular Filt Rate 71 ml/min (>60); GFR (African American) 86 ML/MIN (>60); Globulin 3.8 g/dL (1.3-3.2); Glucose 126 mg/dl (74-100); Lipase 137 U/L (23-300); Potassium 4.1 mmoL/L (3.5-5.1); Sodium 140 mmol/L (136-145); Total Protein,Serum 8.2 g/dl (6.3-8.2)
[2020-02-17 15:51] VITALS: BP 165/64; PULSE 64; O2SAT 100
[2020-02-17 16:47] VITALS: BP 176/73; PULSE 60; O2SAT 99
[2020-02-17 17:18] VITALS: BP 182/77; PULSE 56; RESP 19; TEMP 36.6; O2SAT 98
--- NOTE | 2020-02-17 17:37 | HMH.EDGENADL ---
ED Disposition Clinical Impression: Transaminitis, Dehydration Disposition: Home, Self-Care Condition on Discharge: Good Instructions: DI for Diarrhea and Traveler's Diarrhea -- Adult, DI for Diarrhea and Traveler's Diarrhea -- Child, DI for Nausea -- Adult, DI for Nausea -- Child Additional Instructions: Call Dr. Kwan tomorrow morning to make an appointment to get your liver enzymes rechecked. Return if you have any pain, more vomiting, or any other symptoms. Referrals: Jean Kwan MD [Primary Care Provider] - - Critical Care Critical Care Time: No Attestation: On 02/17/20, the high probability of a clinically significant, sudden or life threatening deterioration of the following system(s) required my full and direct attention, intervention and personal management. The time I documented below is in addition to time spent performing reported procedures but includes the following listed in this critical care notation. Medical Decision Making - Medical Records Medical records reviewed: Yes: I reviewed the patient's medical records. - Andrzej Inquiry Pt receiving controlled substance: No Vital Signs: 02/17/20 14:49 02/17/20 15:26 02/17/20 15:51 Temperature 97.9 F Temperature Source Oral Pulse Rate Pulse Rate [Right] 74 66 64 Respiratory Rate 17 Blood Pressure Blood Pressure [Right Arm] 189/58 H 165/64 H 165/64 H Blood Pressure Mean [Right Arm] 101 97 97 Blood Pressure Source Blood Pressure Source [Right Arm] Automatic Cuff Automatic Cuff Blood Pressure Position Blood Pressure Position [Right Arm] Sitting Sitting 02 Sat by Pulse Oximetry 98 97 100 Oxygen Delivery Method Room Air Room Air 02/17/20 16:47 02/17/20 17:18 Temperature 97.9 F Temperature Source Oral Pulse Rate 56 L Pulse Rate [Right] 60 Respiratory Rate 19 Blood Pressure 182/77 H Blood Pressure [Right Arm] 176/73 H Blood Pressure Mean [Right Arm] 107 Blood Pressure Source Automatic Cuff Blood Pressure Source [Right Arm] Automatic Cuff Blood Pressure Position Sitting Blood Pressure Position [Right Arm] Sitting 02 Sat by Pulse Oximetry 99 Oxygen Delivery Method Room Air Room Air - Lab Data Lab Results 02/17/20 15:00: Urine Color Yellow, Urine Appearance Clear, Urine pH 5.5, Ur Specific [place] >= 1.030, Urine Protein 1+, Urine Glucose (UA) Negative, Urine Ketones Trace, Urine Blood 2+, Urine Nitrate Negative, Urine Bilirubin Negative, Urine Urobilinogen 0.2, Ur Leukocyte Esterase Negative, Urine RBC 5-10, Urine WBC Occasional, Ur Squamous Epith Cells 5-10, Ur Transition Epith Cell 3-5, Amorphous Sediment 1+, Urine Bacteria None, Hyaline Casts 3-5, Coarse Granular Casts Occasional 02/17/20 15:20: WBC 12.1 H, RBC 4.36, Hgb 13.0, Hct 39.7, MCV 91.2, MCH 29.8, MCHC 32.6, RDW 14.1, Plt Count 192, MPV 9.2, Neut % (Auto) 77.9, Lymph % (Auto) 16.2, [place] % (Auto) 4.1, Eos % (Auto) 1.3, Baso % (Auto) 0.6, Neut # (Auto) 9.4 H, Lymph # (Auto) 2.0, [place] # (Auto) 0.5, Eos # (Auto) 0.2, Baso # (Auto) 0.1 02/17/20 15:20: Sodium 140, Potassium 4.1, Chloride 101, Carbon Dioxide 32 H, Anion Gap 11.1, BUN 21 H, Creatinine 0.80, Estimated Creat Clear 57, Estimated GFR 71, Est GFR ( Amer) 86, Glucose 126 H, Calcium 9.6, Total Bilirubin 0.6, AST 391 H*, ALT 459 H*, Alkaline Phosphatase 102, Total Protein 8.2, Albumin 4.4, Globulin 3.8 H, Albumin/Globulin Ratio 1.2, Lipase 137 Result diagrams: 02/17/20 15:20 02/17/20 15:20 Orders (Tests/Meds): ED MEDICATIONS Discontinued Medications Generic Name Dose Route Start Last Admin Trade Name Freq PRN Reason Stop Dose Admin Lactated Ringer's 500 mls @ 999 mls/hr 02/17/20 15:15 02/17/20 15:13 Lactated Ringer's 1000 Ml Bag IV 02/17/20 15:45 999 mls/hr .Q31M GAIL Administration ORDERS Category Date Time Status ECG Request by /nAnie Stat Y 02/17/20 15:08 Ordered Medical Decision Narrative: The patient is a 69 year old female who presents to
== END 2020-02-17 17:19 | disposition home or self-care (01) ==
PROVIDERS: Emergency Provider Emergency Medicine; PCP Internal Medicine Adolescent Medicine
DX: E86.0 Dehydration (principal); R74.01 Elevation of levels of liver transaminase levels; M25.561 Pain in right knee; F41.8 Other specified anxiety disorders
CPT/HCPCS: 80053; 81001; 83690; 85025; 93005; 96365; 99283

== ENCOUNTER → 2020-02-25 09:47 | Outpatient (CLI) | payer MEDICARE, OTHER, SELFPAY ==
[2020-02-25 10:29] LABS: Basophils # 0.1 K/mm3 (0-0.2); Basophils % 0.6 % (0.1-2.0); Eosinophils # 0.1 K/mm3 (0.0-0.4); Hematocrit 38.2 % (37.0-47.0); Hemoglobin 12.4 g/dL (12.2-16.2); Lymphocytes # 2.1 K/mm3 (0.7-4.5); Lymphocytes % 21.2 % (10-50); Mean Corpuscular HGB Conc 32.6 g/dL (31.8-35.4); Mean Corpuscular Hemoglobin 30.3 pg (27.0-31.2); Mean Corpuscular Volume 92.9 fl (81-99); Mean Platelet Volume 9.4 fl (7.4-10.4); Monocytes # 0.5 K/mm3 (0.1-1.0); Monocytes % 4.7 % (1.7-9.3); Neutrophils % 72.5 % (37.0-80.0); Platelet Count 173 K/mm3 (142-424); Red Blood Count 4.11 M/mm3 (4.20-5.40); Red Cell Distribution Width 14.2 % (11.5-17.5); White Blood Count 9.7 K/mm3 (4.8-10.8)
[2020-02-25 11:16] LABS: INR 0.98 (0.9-1.1); Prothrombin Time 10.9 seconds (9.4-11.8)
[2020-02-25 11:20] LABS: Chloride 100 mmol/L (98-107); Potassium 4.6 mmoL/L (3.5-5.1); Sodium 141 mmol/L (136-145)
[2020-02-25 11:23] LABS: Alanine Aminotransferase 263 U/L (12-78); Albumin/Globulin Ratio 1.3 (1.1-1.8); Alkaline Phosphatase 63 U/L (38-126); Anion Gap 12.6 mEq/L (5-15); Aspartate Amino Transferase 155 U/L (14-36); Bilirubin,Total 0.4 mg/dl (0.2-1.3); Blood Urea Nitrogen 17 mg/dl (7-17); Calcium 9.3 mg/dl (8.4-10.2); Carbon Dioxide 33 mmol/L (22.0-30.0); Estimated Glomerular Filt Rate 99 ml/min (>60); GFR (African American) 119 ML/MIN (>60); Globulin 3.2 g/dL (1.3-3.2); Glucose 137 mg/dl (74-100); Total Protein,Serum 7.2 g/dl (6.3-8.2)
== END ==
PROVIDERS: Visit Provider Internal Medicine Adolescent Medicine
DX: R79.89 Other specified abnormal findings of blood chemistry (principal)
CPT/HCPCS: 36415; 80053; 85025; 85610

== ENCOUNTER → 2020-05-15 10:07 | Outpatient (CLI) | payer MEDICARE, OTHER, SELFPAY ==
[2020-05-15 10:41] LABS: Basophils % 0.4 % (0.1-2.0); Eosinophils # 0.1 K/mm3 (0.0-0.4); Eosinophils % 1.3 % (0.1-12.0); Hematocrit 42.3 % (37.0-47.0); Hemoglobin 13.9 g/dL (12.2-16.2); Lymphocytes # 2.3 K/mm3 (0.7-4.5); Lymphocytes % 23.9 % (10-50); Mean Corpuscular HGB Conc 32.9 g/dL (31.8-35.4); Mean Corpuscular Hemoglobin 29.4 pg (27.0-31.2); Mean Corpuscular Volume 89.4 fl (81-99); Mean Platelet Volume 9.6 fl (7.4-10.4); Monocytes # 0.4 K/mm3 (0.1-1.0); Monocytes % 4.2 % (1.7-9.3); Neutrophils # 6.8 K/mm3 (1.8-7.8); Neutrophils % 70.1 % (37.0-80.0); Platelet Count 193 K/mm3 (142-424); Red Blood Count 4.73 M/mm3 (4.20-5.40); Red Cell Distribution Width 13.6 % (11.5-17.5); White Blood Count 9.6 K/mm3 (4.8-10.8)
[2020-05-15 11:28] LABS: Chloride 98 mmol/L (98-107); Sodium 139 mmol/L (136-145)
[2020-05-15 11:30] LABS: Alanine Aminotransferase 179 U/L (12-78); Aspartate Amino Transferase 125 U/L (14-36); Blood Urea Nitrogen 19 mg/dl (7-17); Estimated Glomerular Filt Rate 82 ml/min (>60); GFR (African American) 100 ML/MIN (>60)
[2020-05-15 11:31] LABS: Albumin Level 4.6 g/dl (3.5-5.0); Albumin/Globulin Ratio 1.1 (1.1-1.8); Alkaline Phosphatase 70 U/L (38-126); Bilirubin,Total 0.5 mg/dl (0.2-1.3); Carbon Dioxide 33 mmol/L (22.0-30.0); Chol/HDL Ratio 5.5 (1-3.5); Cholesterol 214 mg/dl (140-200); Globulin 4.1 g/dL (1.3-3.2); Glucose 123 mg/dl (74-100); HDL Cholesterol 39 mg/dl (40-60); Total Protein,Serum 8.7 g/dl (6.3-8.2); Triglycerides 189 mg/dl (30-150); VLDL Cholesterol 38 mg/dL (0-40)
[2020-05-15 11:42] LABS: Direct LDL Cholesterol 121.05 mg/dL (100-129)
== END ==
PROVIDERS: Visit Provider Internal Medicine Adolescent Medicine
DX: E11.9 Type 2 diabetes mellitus without complications (principal); K76.0 Fatty (change of) liver, not elsewhere classified; Z79.84 Long term (current) use of oral hypoglycemic drugs
CPT/HCPCS: 36415; 80053; 80061; 83036; 85025

== ENCOUNTER → 2020-05-19 12:48 | Outpatient (POV) | payer MEDICARE, OTHER, SELFPAY | PROVIDERS: Visit Provider Nurse Practitioner Family | DX: Z00.00 Encounter for general adult medical examination without abnormal findings (principal) ==

== ENCOUNTER → 2020-07-07 14:55 | Outpatient (CLI) | payer MEDICARE, OTHER, SELFPAY ==
[2020-07-07 15:29] LABS: Basophils # 0.1 K/mm3 (0-0.2); Basophils % 0.6 % (0.1-2.0); Eosinophils # 0.1 K/mm3 (0.0-0.4); Eosinophils % 1.1 % (0.1-12.0); Hematocrit 38.7 % (37.0-47.0); Hemoglobin 12.5 g/dL (12.2-16.2); Lymphocytes # 2.8 K/mm3 (0.7-4.5); Lymphocytes % 25.9 % (10-50); Mean Corpuscular HGB Conc 32.3 g/dL (31.8-35.4); Mean Corpuscular Hemoglobin 28.7 pg (27.0-31.2); Mean Corpuscular Volume 88.9 fl (81-99); Mean Platelet Volume 8.9 fl (7.4-10.4); Monocytes # 0.5 K/mm3 (0.1-1.0); Monocytes % 4.4 % (1.7-9.3); Neutrophils # 7.4 K/mm3 (1.8-7.8); Neutrophils % 67.9 % (37.0-80.0); Platelet Count 215 K/mm3 (142-424); Red Blood Count 4.35 M/mm3 (4.20-5.40); Red Cell Distribution Width 13.5 % (11.5-17.5); White Blood Count 10.9 K/mm3 (4.8-10.8)
[2020-07-07 16:36] LABS: Chloride 102 mmol/L (98-107); Potassium 4.7 mmoL/L (3.5-5.1); Sodium 140 mmol/L (136-145)
[2020-07-07 16:38] LABS: Blood Urea Nitrogen 17 mg/dl (7-17); Estimated Glomerular Filt Rate 98 ml/min (>60); GFR (African American) 119 ML/MIN (>60)
[2020-07-07 16:39] LABS: Alanine Aminotransferase 132 U/L (12-78); Albumin Level 4.7 g/dl (3.5-5.0); Albumin/Globulin Ratio 1.3 (1.1-1.8); Alkaline Phosphatase 83 U/L (38-126); Anion Gap 12.7 mEq/L (5-15); Aspartate Amino Transferase 98 U/L (14-36); Bilirubin,Total 0.6 mg/dl (0.2-1.3); Calcium 10.1 mg/dl (8.4-10.2); Carbon Dioxide 30 mmol/L (22.0-30.0); Globulin 3.6 g/dL (1.3-3.2); Glucose 103 mg/dl (74-100); Iron 71 ug/dL (37-170); Total Protein,Serum 8.3 g/dl (6.3-8.2)
[2020-07-07 17:15] LABS: Ferritin 181 ng/ml (11.1-264)
== END ==
PROVIDERS: Nurse Practitioner Family; Visit Provider Nurse Practitioner Family
DX: K75.81 Nonalcoholic steatohepatitis (NASH) (principal); R94.5 Abnormal results of liver function studies; R55 Syncope and collapse; Z51.81 Encounter for therapeutic drug level monitoring
CPT/HCPCS: 36415; 80053; 80162; 82728; 83540; 85025

== ENCOUNTER → 2020-07-11 07:25 | Outpatient (CLI) | payer MEDICARE, OTHER, SELFPAY ==
--- NOTE | 2020-07-11 | CA_ITS ---
APPROVED REPORT EXAM: Comprehensive 2D, Doppler, and color-flow Echocardiogram Brand Coordinator: Rika Gong RT(R) Ht: 5 ft 5 in Wt: 154lbs BSA: 1.77 BP: 130/41 mmHg Indications: Syncope, HTN, DM 2D Dimensions LVOT 1.92 cm (M/F) 1.5-2.5 M-Mode Dimensions RVDd 1.98 cm (0.9-2.6) LA Diam 3.67 cm (1.9-4.0) LVDd 4.50 cm (3.5-5.7) Ao Diam 2.32 cm (2.0-3.7) LVDs 2.99 cm (3.5-5.7) IVSd 0.67 cm (0.6-1.1) PWd 0.87 cm (0.6-1.1) EF (Teich) 62.40% FS 33.60% EDV (Teich) 92.40 mL ESV (Teich) 34.70 mL LV Diastology E Decel Time 247.00 (160-240 msec) E/A Ratio 1.1 MED E' 9.70 (< 7 cm/sec) E'/MED E' Ratio 8.72 (>14) LAT E' 8.90 (<10 cm/sec) E/LAT E' Ratio 9.51 (>14) Mitral Valve MV E Max Joel. 85.00 (40-130 cm/s) MV A Velocity 77.00 (40-130 cm/s) E/A Ratio 1.10 MV Decel. Time 247.00 (160-240 ms) MV PHT 72.00 ms Left Ventricle Left atrium is mildly enlarged, left ventricle is normal size, mild concentric left ventricular hypertrophy, visually estimated ejection fraction 55% with no regional wall motion abnormality, diastolic parameters are inconclusive. Right Ventricle Right atrium and right ventricle are normal size and contractility. Aortic Valve Aortic valve is minimally thickened and fibrosed, there is no aortic stenosis or aortic insufficiency. Mitral Valve Mitral valve is grossly normal, there is trace mitral regurgitation. Tricuspid Valve Tricuspid grossly normal, there is trace tricuspid regurgitation, tricuspid rotation jet velocity is inadequate for calculation of the right ventricular systolic pressure. Pulmonic Valve Pulmonic valve is poorly visualized. Great Vessels Aortic root is normal size. Pericardium Small pericardial effusion noted. Conclusion 1. Normal left ventricular size, mild concentric left ventricular hypertrophy, visually estimated ejection fraction 55% with no regional wall motion abnormality, diastolic parameters are inconclusive. 2. Trace mitral and tricuspid regurgitation. 3. Small pericardial effusion noted. Electronically signed by : Duke Clemente, 07/11/2020 14:20:14
== END ==
PROVIDERS: PCP Internal Medicine Adolescent Medicine; Visit Provider Nurse Practitioner Family
DX: R55 Syncope and collapse (principal)
CPT/HCPCS: 93306

== ENCOUNTER 2020-07-17 10:55 | Emergency (ER) | payer MEDICARE, OTHER, SELFPAY ==
[2020-07-17] VITALS (7 sets, daily range): BP systolic 146–185; BP diastolic 66–88; PULSE 64–78; RESP 16–20; TEMP 36.6–36.8; O2SAT 95–98; BMI 25.2
--- NOTE | 2020-07-17 10:59 | ECG_ITS ---
APPROVED REPORT Exam: Resting ECG HR:69 bpm ECG Measurements Heart Rate 69 AXES AR 150 P 66 QRSd 86 QRS 40 QT 378 T 51 QTc 405 Conclusion Normal sinus rhythm Possible Left atrial enlargement Borderline ECG Electronically signed by : Jean Kwan, 07/18/2020 15:09:14
--- NOTE | 2020-07-17 11:00 | XR_ITS ---
PROCEDURE: XR CHEST PORTABLE CLINICAL HISTORY: cough COMPARISON: CR CXR CHEST(2 VIEWS-NOT PORTABLE) from 07/26/2016 CR CXR2V XR chest 2V from 02/01/2018 FINDINGS: The cardiomediastinal silhouette and pulmonary vascularity are within normal limits. The lungs are clear without infiltrates, suspicious nodules, or pleural effusions. Degenerative changes of the visualized thoracic spine. IMPRESSION: No acute findings. Dictated by: Vida Javed 07/17/2020 11:24 Vida Javed in [facility] 07/17/2020 11:24
[2020-07-17 11:19] LABS: Basophils % 0.4 % (0.1-2.0); Eosinophils # 0.1 K/mm3 (0.0-0.4); Eosinophils % 0.7 % (0.1-12.0); Lymphocytes # 1.4 K/mm3 (0.7-4.5); Lymphocytes % 15.3 % (10-50); Mean Corpuscular HGB Conc 32.4 g/dL (31.8-35.4); Mean Corpuscular Hemoglobin 28.2 pg (27.0-31.2); Mean Corpuscular Volume 87.1 fl (81-99); Mean Platelet Volume 9.7 fl (7.4-10.4); Monocytes # 0.3 K/mm3 (0.1-1.0); Monocytes % 3.7 % (1.7-9.3); Neutrophils # 7.3 K/mm3 (1.8-7.8); Platelet Count 162 K/mm3 (142-424); Red Blood Count 4.24 M/mm3 (4.20-5.40); Red Cell Distribution Width 13.7 % (11.5-17.5); White Blood Count 9.1 K/mm3 (4.8-10.8)
--- NOTE | 2020-07-17 11:22 | HMH.EDGENADL ---
ED Disposition Clinical Impression: Orthostatic syncope, Acute UTI Disposition: Home, Self-Care Condition on Discharge: Good Instructions: DI for Urinary Tract Infection (UTI) Prescriptions: cephALEXin [Cephalexin 500mg Tab] 500 mg PO BID 7 Days #14 tab Transmission Status: Pending to [facility] Referrals: PCP,No [Non-Staff] - - Critical Care Critical Care Time: No Attestation: On 07/17/20, the high probability of a clinically significant, sudden or life threatening deterioration of the following system(s) required my full and direct attention, intervention and personal management. The time I documented below is in addition to time spent performing reported procedures but includes the following listed in this critical care notation. Medical Decision Making - Medical Records Medical records reviewed: Yes: I reviewed the patient's medical records. - Andrzej Inquiry Pt receiving controlled substance: No Vital Signs: 07/17/20 11:00 07/17/20 11:30 07/17/20 12:00 Temperature 98 F Temperature Source Oral Pulse Rate 64 71 Pulse Rate [Radial] 72 Respiratory Rate 18 20 20 Blood Pressure 146/68 H 157/88 H Blood Pressure [Left Arm] 148/75 H Blood Pressure [Right Arm] 185/79 H Blood Pressure Mean 104 92 Blood Pressure Mean [Left Arm] 99 Blood Pressure Mean [Right Arm] 114 Blood Pressure Position [Left Arm] Standing Blood Pressure Position [Right Arm] Supine 02 Sat by Pulse Oximetry 98 97 98 Oxygen Delivery Method Room Air 07/17/20 12:32 07/17/20 13:00 07/17/20 13:30 Temperature Temperature Source Pulse Rate 69 71 67 Pulse Rate [Radial] Respiratory Rate 18 18 16 Blood Pressure 165/71 H 166/77 H 155/71 H Blood Pressure [Left Arm] Blood Pressure [Right Arm] Blood Pressure Mean 95 Blood Pressure Mean [Left Arm] Blood Pressure Mean [Right Arm] Blood Pressure Position [Left Arm] Blood Pressure Position [Right Arm] 02 Sat by Pulse Oximetry 96 98 95 Oxygen Delivery Method - Lab Data Lab Results 07/17/20 11:06: WBC 9.1, RBC 4.24, Hgb 12.0 L, Hct 37.0, MCV 87.1, MCH 28.2, MCHC 32.4, RDW 13.7, Plt Count 162, MPV 9.7, Neut % (Auto) 80.0, Lymph % (Auto) 15.3, [place] % (Auto) 3.7, Eos % (Auto) 0.7, Baso % (Auto) 0.4, Neut # (Auto) 7.3, Lymph # (Auto) 1.4, [place] # (Auto) 0.3, Eos # (Auto) 0.1, Baso # (Auto) 0.0 07/17/20 11:06: Sodium 140, Potassium 4.1, Chloride 102, Carbon Dioxide 28, Anion Gap 14.1, BUN 16, Creatinine 0.60, Estimated Creat Clear 57, Estimated GFR 98, Est GFR ( Amer) 119, Glucose 184 H, Calcium 9.4, Total Bilirubin 0.4, AST 89 H, ALT 121 H, Alkaline Phosphatase 68, Troponin I < 0.01, NT-Pro-B Natriuret Pep 32.9, Total Protein 8.1, Albumin 4.5, Globulin 3.6 H, Albumin/Globulin Ratio 1.3, TSH 0.62 07/17/20 11:38: PT 11.4, INR 0.96, APTT 24.6 07/17/20 12:30: Urine Color Yellow, Urine Appearance Clear, Urine pH 6.5, Ur Specific [place] 1.010, Urine Protein Negative, Urine Glucose (UA) Negative, Urine Ketones Negative, Urine Blood Negative, Urine Nitrate Negative, Urine Bilirubin Negative, Urine Urobilinogen 0.2, Ur Leukocyte Esterase 1+ A, Urine RBC 3-5, Urine WBC 10-20, Ur Squamous Epith Cells 3-5, Urine Bacteria Trace Result diagrams: 07/17/20 11:06 07/17/20 11:06 Orders (Tests/Meds): ORDERS Category Date Time Status Troponin I Q3H Lab 07/17/20 14:00 Ordered Troponin I Q3H Lab 07/17/20 17:00 Ordered Urine Culture Stat Micro 07/17/20 12:30 Received - Radiology Data #1 Image(s): Chest Image Reviewed: Yes I reviewed the patient's radiology results, Yes I reviewed the patient's radiology image, Yes I have reviewed radiologist's interpretation Preliminary Findings: Normal/NAD - CT Data CT Scan: Head Time Received: 14:[address] Reviewed: Yes: I have reviewed the patient's CT results, I discussed the CT results w/the radiologist Findings Narrative: IMPRESSION: No acute intracranial finding. Hyperacute i
[2020-07-17 11:31] LABS: Alanine Aminotransferase 121 U/L (12-78); Albumin Level 4.5 g/dl (3.5-5.0); Albumin/Globulin Ratio 1.3 (1.1-1.8); Alkaline Phosphatase 68 U/L (38-126); Anion Gap 14.1 mEq/L (5-15); Aspartate Amino Transferase 89 U/L (14-36); Bilirubin,Total 0.4 mg/dl (0.2-1.3); Blood Urea Nitrogen 16 mg/dl (7-17); Calcium 9.4 mg/dl (8.4-10.2); Carbon Dioxide 28 mmol/L (22.0-30.0); Chloride 102 mmol/L (98-107); Creatinine Clearance Estimated 57 mL/min (50-200); Estimated Glomerular Filt Rate 98 ml/min (>60); GFR (African American) 119 ML/MIN (>60); Globulin 3.6 g/dL (1.3-3.2); Glucose 184 mg/dl (74-100); Potassium 4.1 mmoL/L (3.5-5.1); Sodium 140 mmol/L (136-145); Total Protein,Serum 8.1 g/dl (6.3-8.2)
[2020-07-17 11:41] LABS: NT Pro Brain Natriuretic Pep. 32.9 pg/mL (0-125)
[2020-07-17 11:49] LABS: Troponin I < 0.01 ng/ml (0.00-0.034)
[2020-07-17 11:59] LABS: INR 0.96 (0.9-1.1); Prothrombin Time 11.4 seconds (10.1-12.5)
[2020-07-17 12:00] LABS: Activated Partial Thrombo Time 24.6 seconds (22.8-30.6)
[2020-07-17 12:02] LABS: Thyroid Stimulating Hormone 0.62 uIU/mL (0.465-4.68)
[2020-07-17 12:41] LABS: Microscopic, Urine URINE MICROSCOPIC (MICROSCOPIC)
[2020-07-17 12:44] LABS: Appearance,Urine CLEAR (Clear); Bilirubin,Urine Negative (Negative); Blood, Urine Negative (Negative); Color,Urine YELLOW (Yellow); Glucose,Urine (UA) Negative (Negative); Ketones,Urine Negative (Negative); Leukocyte Esterase,Urine 1+ (Negative); Nitrate,Urine Negative (Negative); PH,Urine 6.5 (5.0-8.5); Protein,Urine Negative (Negative); Urobilinogen,Urine 0.2 EU/dl (0.2)
[2020-07-17 12:53] LABS: Bacteria,Urine Trace /lpf
--- NOTE | 2020-07-17 13:17 | CT_ITS ---
PROCEDURE: CT HEAD/BRAIN WO CON CLINICAL INDICATION: weakness COMPARISON: No exams were available for comparison TECHNIQUE: Axial images obtained. All CT scans at the facility use one or more dose reduction, viz: automated exposure control, ma/kV adjustment per patient size (including targeted exams where dose is matched to indication, i.e. head), or iterative reconstruction technique. FINDINGS: No midline shift, mass effect, intracranial hemorrhage, hydrocephalus, or extra-axial fluid collection is evident. There is mild generalized volume loss. Scattered periventricular and subcortical white might hypodensities are noted. Atherosclerotic vascular calcification of the bilateral internal carotid arteries are noted. The calvarium has an unremarkable appearance. Minor mucosal thickening of the sphenoid sinuses. The rest of the para nasal sinuses are unremarkable. The mastoid air cells are clear. IMPRESSION: No acute intracranial finding. Hyperacute infarcts cannot be excluded on the CT scan. If clinically index of suspicion for infarction is high, MRI of the brain without contrast is suggested for further evaluation. Minor microvascular changes and atherosclerotic disease. Dictated by: Vida Javed 07/17/2020 14:06 Vida Javed in [facility] 07/17/2020 14:06
--- NOTE | 2020-07-17 13:43 | PC.NURSE ---
PATIENT GONE FOR RADIOLOGY PROCEDURE AT THIS TIME
--- NOTE | 2020-07-17 15:19 | PC.NURSE ---
PATIENT UP FOR DISCHARGE BUT PATIENTS TRANSPORTATION IS ON THE WAY PER PT REPORT. WILL CONTINUE TO MONITOR PATIENT IN THE ROOM
== END 2020-07-17 15:35 | disposition home or self-care (01) ==
PROVIDERS: Emergency Provider Emergency Medicine; PCP Internal Medicine Adolescent Medicine
DX: I95.1 Orthostatic hypotension (principal); N30.00 Acute cystitis without hematuria; I10 Essential (primary) hypertension; F41.8 Other specified anxiety disorders; E11.65 Type 2 diabetes mellitus with hyperglycemia; Z79.899 Other long term (current) drug therapy; R06.02 Shortness of breath
CPT/HCPCS: 70450; 71045; 80053; 81001; 83880; 84443; 84484; 85025; 85610; 85730; 87086; 87088; 87186; 93005; 99282

== ENCOUNTER 2020-09-07 10:46 | Emergency (ER) | payer MEDICARE, OTHER, SELFPAY ==
--- NOTE | 2020-09-07 | ECG_ITS ---
APPROVED REPORT Exam: Resting ECG HR:68 bpm ECG Measurements Heart Rate 68 AXES VT 134 P 60 QRSd 92 QRS 49 QT 398 T 64 QTc 423 Conclusion Normal sinus rhythm Nonspecific ST and T wave abnormality Abnormal ECG Electronically signed by : Jean Kwan, 09/13/2020 07:41:55
[2020-09-07 10:50] VITALS: BP 175/92; PULSE 71; RESP 18; TEMP 36.4; O2SAT 94; BMI 24.7
[2020-09-07 11:01] VITALS: BP 158/71; PULSE 67; RESP 18; O2SAT 96
[2020-09-07 11:26] LABS: POC Glucose,Bedside 151 (70-110)
--- NOTE | 2020-09-07 11:28 | HMH.EDGENADL ---
ED Disposition Clinical Impression: Lower extremity edema Disposition: Home, Self-Care Condition on Discharge: Good Additional Instructions: If symptoms persist or worsen, please return to the ED for further evaluation If you have shortness of breath, follow-up redness or increased swelling, please return to the ED for further evaluation. 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 The time I documented below is in addition to time spent performing reported procedures but includes the following listed in this critical care notation. Medical Decision Making - Medical Records Medical records reviewed: Yes: I reviewed the patient's medical records. - Andrzej Inquiry Pt receiving controlled substance: No Vital Signs: 09/07/20 10:50 Temperature 97.6 F Temperature Source Oral Pulse Rate [Left] 71 Respiratory Rate 18 Blood Pressure [Right Arm] 175/92 H Blood Pressure Mean [Right Arm] 119 Blood Pressure Source [Right Arm] Automatic Cuff Blood Pressure Position [Right Arm] Supine 02 Sat by Pulse Oximetry 94 L Oxygen Delivery Method Room Air - Lab Data Lab Results 09/07/20 11:19: POC Glucose 151 H - US Data US Images: Lower Extremity Findings Narrative: I performed a [id number] ultrasound to evaluate for DVT of the right lower extremity as well as a soft tissue ultrasound to evaluate for cellulitis of the right lower extremity. Patient does not have any evidence of DVT on my bedside ultrasound. Additionally there is no edema within the soft tissue of the right lower extremity or the left lower extremity. Medical Decision Narrative: Patient is a well-appearing 70-year-old female presenting with mild bilateral lower extremity swelling. Differential diagnosis includes but is not limited to DVT, cellulitis, CHF exacerbation. However, patient does not have a history of heart failure. Patient's right lower extremity on exam is not erythematous, nontender. There is very minimal difference in swelling between the right and left lower extremity. I performed a [id number] ultrasound which did not demonstrate a DVT in the right lower extremity. Additionally, there is no fluid in between the skin layers concerning for cellulitis. Additionally, clinically the patient does not appear to have cellulitis given that there is no erythema, tenderness to the right lower extremity. Patient is not short of breath, does not have a history of CHF, does not have worsening pitting edema. Patient states that she is very thirsty, but has not had any nausea or vomiting. Patient has not had any diarrhea. Patient states she only drinks 40 ounces of water a day and has tacky mucous membranes. Patient's blood glucose was checked and was minimally elevated to 151. I do not believe that patient is in DKA or HHS leading to her feeling thirsty. I discussed this with the patient no was agreeable to discharge. She was discharged stable condition with return precautions. General Adult HPI - General Chief complaint: Extremity Problem,Nontraumatic Stated complaint: swelling ankles Time Seen by Provider: 09/07/20 11:00 Mode of Arrival: EMS Limitations: No Limitations Description of Symptoms (Recalled from ER Triage Doc. by RN): patient to ED via [facility] for c/o BLE swelling starting this AM. Does not complain of pain, or having trouble urinating. No issues with ambulation. - History of Present Illness HPI narrative: Patient presents with bilateral lower extremity swelling. Patient states that she woke up this morning and noticed that her legs were slightly more swollen than usua
[2020-09-07 11:31] VITALS: BP 154/68; PULSE 68; RESP 18; O2SAT 97
[2020-09-07 11:56] VITALS: BP 154/68; PULSE 71; RESP 16; TEMP 36.6; O2SAT 95
== END 2020-09-07 11:57 | disposition home or self-care (01) ==
PROVIDERS: Emergency Provider Emergency Medicine
DX: R60.0 Localized edema (principal); I82.461 Acute embolism and thrombosis of right calf muscular vein; I10 Essential (primary) hypertension; F41.8 Other specified anxiety disorders; E11.9 Type 2 diabetes mellitus without complications; Z79.899 Other long term (current) drug therapy
CPT/HCPCS: 82962; 93005; 99282

== ENCOUNTER 2020-09-12 09:39 | Emergency (ER) | payer MEDICARE, OTHER, SELFPAY ==
[2020-09-12 09:40] VITALS: BP 168/79; PULSE 71; RESP 16; TEMP 37; O2SAT 98; BMI 27.1
--- NOTE | 2020-09-12 09:45 | HMH.EDGENADL ---
ED Disposition Clinical Impression: Contact dermatitis Qualifiers: Contact dermatitis type: irritant Contact dermatitis trigger: unspecified trigger Qualified Code(s): L24.9 - Irritant contact dermatitis, unspecified cause Disposition: Home, Self-Care Condition on Discharge: Good Instructions: DI for Skin Abscess Referrals: Jean Kwan MD [Primary Care Provider] - 09/16/20 Time of Disposition: 11:31 - Critical Care Critical Care Time: No Attestation: On 09/12/20, the high probability of a clinically significant, sudden or life threatening deterioration of the following system(s) required my full and direct attention, intervention and personal management. The time I documented below is in addition to time spent performing reported procedures but includes the following listed in this critical care notation. Medical Decision Making - Medical Records Medical records reviewed: Yes: I reviewed the patient's medical records. - Andrzej Inquiry Pt receiving controlled substance: No Vital Signs: 09/12/20 09:40 Temperature 98.6 F Temperature Source Oral Pulse Rate [Radial] 71 Respiratory Rate 16 Blood Pressure [Right Arm] 168/79 H Blood Pressure Mean [Right Arm] 108 Blood Pressure Position [Right Arm] Sitting 02 Sat by Pulse Oximetry 98 Oxygen Delivery Method Room Air - Lab Data Lab results reviewed: Yes: I reviewed the patient's lab results. Lab Results 09/12/20 10:25: WBC 11.4 H, RBC 4.17 L, Hgb 12.0 L, Hct 36.8 L, MCV 88.1, MCH 28.8, MCHC 32.7, RDW 14.0, Plt Count 153, MPV 9.5, Neut % (Auto) 78.2, Lymph % (Auto) 16.0, Morton % (Auto) 4.3, Eos % (Auto) 1.1, Baso % (Auto) 0.5, Neut # (Auto) 8.9 H, Lymph # (Auto) 1.8, Morton # (Auto) 0.5, Eos # (Auto) 0.1, Baso # (Auto) 0.1 09/12/20 10:25: NT-Pro-B Natriuret Pep 61.7 Result diagrams: 09/12/20 10:25 Medical Decision Narrative: 70yo F evaluated with concern for lower extremity edema and rash. No edema is appreciated on physical exam. A BNP is collected and is normal. Patient is in no acute distress otherwise. She does have mild erythema in the patch over her pretibial area on the left leg greater than the right. White blood cell count is 11.4 but otherwise exam and work-up is benign. We will treat the patient with topical steroids at this time. Encouraged her to follow-up with her PCPs office on Tuesday; Tuesday is a holiday. General Adult HPI - General Chief complaint: Skin/Abscess/Foreign Body Stated complaint: rash Time Seen by Provider: 09/12/20 09:45 Mode of Arrival: EMS - History of Present Illness HPI narrative: 70yo F presents to the emergency department secondary to a rash on her lower extremity. Patient reports she did notice it yesterday. She states it does not hurt. Patient is concerned for lower extremity edema as well. Patient was evaluated here on Tuesday for complaint of lower extremity edema and lower extremity pain. Documentation review reveals that a bedside ultrasound was completed and negative for DVT. Patient denies any shortness of breath or chest pain. She denies any fever, nausea/vomit/diarrhea. - Related Data Home Medications Medication Instructions Recorded Confirmed Digoxin [Digoxin 0.25mg Tablet] 250 mcg PO DAILY 02/01/18 09/07/20 Metoprolol Tartrate [Lopressor 25 mg PO DAILY 02/01/18 09/07/20 25mg tablet] Venlafaxine HCl 50 mg PO BID 02/01/18 09/07/20 Quetiapine Fumarate [Seroquel] 50 mg PO BID 04/04/18 09/07/20 metformin 1,000 mg tablet 1,000 mg PO BID tab 02/15/19 09/07/20 atorvastatin 40 mg tablet 40 mg PO DAILY tab 07/23/20 09/07/20 lisinopril 5 mg tablet 5 mg PO QHS tab 07/23/20 09/07/20 Previous Rx's Medication Instructions Recorded naproxen 500 mg tablet 500 mg PO BID PRN 30 Days #60 tab 05/02/19 Allergies Allergy/AdvReac Type Severity Reaction Status Date / Time acetaminophen [ACETAMINOPHEN] Allergy Mild Verified 09/07/20 11:05 aspirin Allergy Verified 09/07/20 11:05 [facility]
[2020-09-12 10:38] LABS: Basophils # 0.1 K/mm3 (0-0.2); Basophils % 0.5 % (0.1-2.0); Eosinophils # 0.1 K/mm3 (0.0-0.4); Eosinophils % 1.1 % (0.1-12.0); Hematocrit 36.8 % (37.0-47.0); Lymphocytes # 1.8 K/mm3 (0.7-4.5); Mean Corpuscular HGB Conc 32.7 g/dL (31.8-35.4); Mean Corpuscular Hemoglobin 28.8 pg (27.0-31.2); Mean Corpuscular Volume 88.1 fl (81-99); Mean Platelet Volume 9.5 fl (7.4-10.4); Monocytes # 0.5 K/mm3 (0.1-1.0); Monocytes % 4.3 % (1.7-9.3); Neutrophils # 8.9 K/mm3 (1.8-7.8); Neutrophils % 78.2 % (37.0-80.0); Platelet Count 153 K/mm3 (142-424); Red Blood Count 4.17 M/mm3 (4.20-5.40); White Blood Count 11.4 K/mm3 (4.8-10.8)
[2020-09-12 11:08] LABS: NT Pro Brain Natriuretic Pep. 61.7 pg/mL (0-125)
[2020-09-12 12:13] VITALS: BP 177/55; PULSE 62; RESP 16; TEMP 36.8; O2SAT 97
== END 2020-09-12 12:16 | disposition home or self-care (01) ==
PROVIDERS: Emergency Provider Family Medicine; PCP Internal Medicine Adolescent Medicine
DX: L24.9 Irritant contact dermatitis, unspecified cause (principal); I10 Essential (primary) hypertension; E11.9 Type 2 diabetes mellitus without complications; E78.5 Hyperlipidemia, unspecified; F41.8 Other specified anxiety disorders; Z79.899 Other long term (current) drug therapy; R60.0 Localized edema
CPT/HCPCS: 83880; 85025; 99282

== ENCOUNTER → 2020-12-10 13:48 | Outpatient (CLI) | payer MEDICARE, OTHER, MEDICAID, SELFPAY ==
[2020-12-10 14:31] LABS: Basophils # 0.1 K/mm3 (0-0.2); Basophils % 0.5 % (0.1-2.0); Eosinophils % 0.3 % (0.1-12.0); Hematocrit 34.7 % (37.0-47.0); Hemoglobin 10.9 g/dL (12.2-16.2); Lymphocytes # 1.8 K/mm3 (0.7-4.5); Lymphocytes % 19.6 % (10-50); Mean Corpuscular HGB Conc 31.6 g/dL (31.8-35.4); Mean Corpuscular Hemoglobin 28.3 pg (27.0-31.2); Mean Corpuscular Volume 89.6 fl (81-99); Mean Platelet Volume 9.8 fl (7.4-10.4); Monocytes # 0.4 K/mm3 (0.1-1.0); Monocytes % 4.4 % (1.7-9.3); Neutrophils # 6.8 K/mm3 (1.8-7.8); Neutrophils % 75.3 % (37.0-80.0); Platelet Count 178 K/mm3 (142-424); Red Blood Count 3.87 M/mm3 (4.20-5.40); Red Cell Distribution Width 15.1 % (11.5-17.5)
[2020-12-10 15:26] LABS: Alanine Aminotransferase 201 U/L (12-78); Albumin Level 3.9 g/dl (3.5-5.0); Albumin/Globulin Ratio 1.2 (1.1-1.8); Alkaline Phosphatase 90 U/L (38-126); Anion Gap 14.2 mEq/L (5-15); Aspartate Amino Transferase 186 U/L (14-36); Bilirubin,Total 0.4 mg/dl (0.2-1.3); Blood Urea Nitrogen 15 mg/dl (7-17); Calcium 9.2 mg/dl (8.4-10.2); Carbon Dioxide 30 mmol/L (22.0-30.0); Chloride 102 mmol/L (98-107); Estimated Glomerular Filt Rate 157 ml/min (>60); GFR (African American) 190 ML/MIN (>60); Globulin 3.3 g/dL (1.3-3.2); Glucose 84 mg/dl (74-100); Potassium 4.2 mmoL/L (3.5-5.1); Sodium 142 mmol/L (136-145); Total Protein,Serum 7.2 g/dl (6.3-8.2)
[2020-12-10 16:22] LABS: Hemoglobin A1C 5.4 % (4.0-6.0)
== END ==
PROVIDERS: Visit Provider Internal Medicine Adolescent Medicine
DX: E11.9 Type 2 diabetes mellitus without complications (principal); I47.1 Supraventricular tachycardia; Z79.84 Long term (current) use of oral hypoglycemic drugs
CPT/HCPCS: 36415; 80053; 80162; 83036; 85025

== ENCOUNTER → 2021-01-28 16:41 | Outpatient (CLI) | payer MEDICARE, OTHER, MEDICAID, SELFPAY | PROVIDERS: Visit Provider Nurse Practitioner Family | DX: N39.0 Urinary tract infection, site not specified (principal) | CPT/HCPCS: 87086 ==

== ENCOUNTER → 2021-03-24 12:35 | Outpatient (CLI) | payer MEDICARE, OTHER, MEDICAID, SELFPAY ==
--- NOTE | 2021-03-24 12:46 | XR_ITS ---
PROCEDURE: XR FOOT RT MIN 3V CLINICAL INDICATION: RIGHT FOOT PAIN COMPARISON: No exams were available for comparison FINDINGS: No fracture or dislocation. No lytic or blastic change. There is normal mineralization. Minimal osteoarthritic change 1st MTP joint. Small calcaneal spur. On the lateral view there is hyperextension of the toes. This may be related to positioning. Please correlate with clinical parameters. Other findings:None. IMPRESSION: Minimal osteoarthritic change 1st MTP joint and mild hyperextension of the Dictated by: Jose Mueller MD 03/24/2021 14:00 Jose Mueller MD in [place] 03/24/2021 14:00
--- NOTE | 2021-03-24 12:51 | CA_ITS ---
APPROVED REPORT Right Lower Extremity Venous Study for DVT. Supervisor Edging: CT Indications Lower Extremity Pain: Right Lower Extremity Edema: Right Vein Imaging CFV (R): compressive, spontaneous, phasic, augmentation SFJ (R): compressive, spontaneous, phasic, augmentation FEM (R): compressive, spontaneous, phasic, augmentation POP (R): compressive, spontaneous, phasic, augmentation DFV (R): compressive, spontaneous, phasic, augmentation PTV (R): compressive, spontaneous, phasic, augmentation GSV (R): compressive, spontaneous, phasic, augmentation SSV (R): compressive, spontaneous, phasic, augmentation Peroneals (R):compressive, spontaneous, phasic, augmentation GAS (R): compressive, spontaneous, phasic, augmentation Findings RLE negative for SVT/DVT. Vessels compressible. No reflux noted. Conclusion RLE negative for SVT/DVT. Vessels compressible. No reflux noted. Electronically signed by : Jose Mueller MD 03/24/2021 16:40:28
[2021-03-24 14:05] LABS: Basophils # 0.1 K/mm3 (0-0.2); Basophils % 0.6 % (0.1-2.0); Eosinophils % 0.4 % (0.1-12.0); Hematocrit 33.3 % (37.0-47.0); Hemoglobin 10.9 g/dL (12.2-16.2); Lymphocytes # 1.7 K/mm3 (0.7-4.5); Lymphocytes % 18.9 % (10-50); Mean Corpuscular HGB Conc 32.7 g/dL (31.8-35.4); Mean Corpuscular Hemoglobin 27.7 pg (27.0-31.2); Mean Corpuscular Volume 84.7 fl (81-99); Mean Platelet Volume 9.5 fl (7.4-10.4); Monocytes # 0.5 K/mm3 (0.1-1.0); Monocytes % 4.9 % (1.7-9.3); Neutrophils # 6.8 K/mm3 (1.8-7.8); Neutrophils % 75.2 % (37.0-80.0); Platelet Count 199 K/mm3 (142-424); Red Blood Count 3.94 M/mm3 (4.20-5.40); White Blood Count 9.1 K/mm3 (4.8-10.8)
[2021-03-24 14:24] LABS: Hemoglobin A1C 6.6 % (4.0-6.0)
[2021-03-24 15:07] LABS: Alanine Aminotransferase 191 U/L (12-78); Albumin/Globulin Ratio 1.2 (1.1-1.8); Alkaline Phosphatase 95 U/L (38-126); Anion Gap 2.9 mEq/L (5-15); Aspartate Amino Transferase 161 U/L (14-36); Bilirubin,Total 0.4 mg/dl (0.2-1.3); Blood Urea Nitrogen 18 mg/dl (7-17); Calcium 9.3 mg/dl (8.4-10.2); Carbon Dioxide 36 mmol/L (22.0-30.0); Chloride 102 mmol/L (98-107); Estimated Glomerular Filt Rate 157 ml/min (>60); GFR (African American) 190 ML/MIN (>60); Globulin 3.3 g/dL (1.3-3.2); Glucose 105 mg/dl (74-100); Potassium 3.9 mmoL/L (3.5-5.1); Sodium 137 mmol/L (136-145); Total Protein,Serum 7.3 g/dl (6.3-8.2)
== END ==
PROVIDERS: PCP Internal Medicine Adolescent Medicine; Visit Provider Nurse Practitioner Family
DX: M79.671 Pain in right foot (principal); M79.89 Other specified soft tissue disorders; E11.9 Type 2 diabetes mellitus without complications; Z79.84 Long term (current) use of oral hypoglycemic drugs
CPT/HCPCS: 36415; 73630; 80053; 83036; 84550; 85025; 93971

== ENCOUNTER 2021-05-11 01:49 | Emergency (ER) | payer MEDICARE, MEDICAID, SELFPAY ==
[2021-05-11] VITALS (9 sets, daily range): BP systolic 140–172; BP diastolic 56–78; PULSE 63–76; RESP 14–18; TEMP 36.6–36.8; O2SAT 97–100; BMI 19.3
--- NOTE | 2021-05-11 02:05 | CT_ITS ---
PROCEDURE INFORMATION: Exam: CT Cervical Spine Without Contrast Exam date and time: 05/11/2021 2:05 AM Age: 71 years old Clinical indication: Injury or trauma; Fall; Blunt trauma; Injury date: 05/11/2021; Additional info: Fall, syncope TECHNIQUE: Imaging protocol: Computed tomography images of the cervical spine without contrast. Radiation optimization: All CT scans at this facility use at least one of these dose optimization techniques: automated exposure control; mA and/or kV adjustment per patient size (includes targeted exams where dose is matched to clinical indication); or iterative reconstruction. COMPARISON: CT HEAD/BRAIN WO CON 05/11/2021 2:25 AM FINDINGS: Bones/joints: No acute cervical spine fracture. No spondylolisthesis. Discs/Spinal canal/Neural foramina: Multilevel disc height loss and degenerative endplate spurring, greatest at C5-C6 and C6-C7. [id number] spinal canal stenosis at C5-C6 and C6-C7, with moderate to advanced neural foraminal narrowing bilaterally. Mild spinal canal stenosis at C3-C4 and C4-C5. Lungs: Lung apices are normal. Soft tissues: Unremarkable. Mediastinum: Nonspecific esophageal wall thickening. IMPRESSION: 1. No acute cervical spine fracture or traumatic malalignment. 2. Degenerative changes as described.
--- NOTE | 2021-05-11 02:05 | CT_ITS ---
PROCEDURE INFORMATION: Exam: CT Head Without Contrast Exam date and time: 05/11/2021 2:05 AM Age: 71 years old Clinical indication: Injury or trauma; Fall; Blunt trauma (contusions or hematomas); Without loss of consciousness; Injury date: 05/11/2021; Additional info: Fall, syncope TECHNIQUE: Imaging protocol: Computed tomography of the head without contrast. Radiation optimization: All CT scans at this facility use at least one of these dose optimization techniques: automated exposure control; mA and/or kV adjustment per patient size (includes targeted exams where dose is matched to clinical indication); or iterative reconstruction. COMPARISON: CT HEAD/BRAIN WO CON 07/17/2020 1:54 PM FINDINGS: Brain: Mild generalized brain volume loss. There is a [id number] degree of patchy periventricular and subcortical white matter low attenuation suggesting chronic microangiopathy, similar to prior. No loss of tellez-white differentiation or evidence of acute ischemia. No mass effect or midline shift. No intracranial hemorrhage. Cerebral ventricles: Within expected limits for age and brain volume status. No ventricular outflow obstruction. Paranasal sinuses: Chronic asymmetry of the posterior right sphenoid sinus and sphenoid wing, which demonstrates decreased pneumatization as compared to the left Mastoid air cells: Visualized mastoid air cells are well aerated. Bones/joints: No depressed or calvarial fracture. Soft tissues: Unremarkable. IMPRESSION: 1. No evidence of an acute intracranial abnormality. 2. Senescent changes with presumed sequela of chronic microangiopathy.
--- NOTE | 2021-05-11 02:05 | ECG_ITS ---
APPROVED REPORT Exam: Resting ECG HR:69 bpm ECG Measurements Heart Rate 69 AXES NE 142 P 66 QRSd 84 QRS 43 QT 370 T 47 QTc 390 Conclusion SINUS RHYTHM POSSIBLE LEFT ATRIAL ENLARGEMENT [-0.1mV P-WAVE IN V1/V2] NONSPECIFIC ST & T-WAVE ABNORMALITY BORDERLINE ECG UNCONFIRMED REPORT Electronically signed by : Jean Kwan MD 05/11/2021 18:34:19
--- NOTE | 2021-05-11 02:05 | XR_ITS ---
PROCEDURE INFORMATION: Exam: XR Chest Exam date and time: 05/11/2021 2:05 AM Age: 71 years old Clinical indication: Injury or trauma; Fall; Blunt trauma (contusions or hematomas); Injury date: 05/11/2021; Additional info: Fall trauma protocols TECHNIQUE: Imaging protocol: XR of the chest. Views: 4 or more views. COMPARISON: CR XR CHEST PORTABLE 07/17/2020 11:05 AM FINDINGS: Lungs: Central vascular congestion without overt pulmonary edema. Minimal atelectasis at the lung bases. No consolidation. Biapical scarring. Pleural spaces: No pleural effusion. No pneumothorax. Heart/Mediastinum: Heart size appears within normal limits. Aortic atherosclerosis. Bones/joints: Osteopenia. No acute displaced fracture. There are a couple of remote appearing left lateral rib fractures. Spondylosis. Bilateral AC joint degenerative changes with undersurface osteophytes. Right humeral head is high riding, suggesting chronic right rotator cuff tendinopathy/insufficiency. IMPRESSION: Minimal bibasilar atelectasis. Otherwise, no acute finding.
--- NOTE | 2021-05-11 02:05 | XR_ITS ---
PROCEDURE INFORMATION: Exam: XR Pelvis Exam date and time: 05/11/2021 2:05 AM Age: 71 years old Clinical indication: Injury or trauma; Fall; Blunt trauma (contusions or hematomas); Bilateral; Pelvic region; Injury date: 05/11/2021; Additional info: Fall trauma protocols TECHNIQUE: Imaging protocol: XR pelvis. Views: 1 or 2 view. COMPARISON: ABDWW MR abdomen wo/w con 11/17/2017 9:58 AM FINDINGS: Bones/joints: Osteopenia. No acute displaced fracture. No dislocation. Bilateral hip joints demonstrate only minimal degenerative spurring. Lower lumbar spondylosis. Degenerative/mechanical narrowing/sclerosis of the pubic symphysis. Soft tissues: Large colonic stool burden. IMPRESSION: No acute displaced fracture.
[2021-05-11 02:19] LABS: Basophils # 0.1 K/mm3 (0-0.2); Basophils % 0.9 % (0.1-2.0); Eosinophils # 0.1 K/mm3 (0.0-0.4); Eosinophils % 0.5 % (0.1-12.0); Hemoglobin 10.6 g/dL (12.2-16.2); Lymphocytes # 1.3 K/mm3 (0.7-4.5); Lymphocytes % 12.2 % (10-50); Mean Corpuscular HGB Conc 32.1 g/dL (31.8-35.4); Mean Corpuscular Hemoglobin 27.9 pg (27.0-31.2); Mean Corpuscular Volume 86.8 fl (81-99); Mean Platelet Volume 8.7 fl (7.4-10.4); Monocytes # 0.4 K/mm3 (0.1-1.0); Monocytes % 3.6 % (1.7-9.3); Neutrophils # 8.7 K/mm3 (1.8-7.8); Neutrophils % 82.8 % (37.0-80.0); Platelet Count 205 K/mm3 (142-424); Red Cell Distribution Width 14.6 % (11.5-17.5); White Blood Count 10.5 K/mm3 (4.8-10.8)
--- NOTE | 2021-05-11 02:21 | PC.NURSE ---
Pt gone to rad
[2021-05-11 02:31] LABS: NT Pro Brain Natriuretic Pep. 49.9 pg/mL (0-125)
[2021-05-11 02:31] LABS: Microscopic, Urine URINE MICROSCOPIC (MICROSCOPIC)
[2021-05-11 02:36] LABS: Appearance,Urine CLEAR (Clear); Bilirubin,Urine Negative (Negative); Blood, Urine Negative (Negative); Color,Urine YELLOW (Yellow); Glucose,Urine (UA) Negative (Negative); Ketones,Urine Negative (Negative); Leukocyte Esterase,Urine Negative (Negative); Nitrate,Urine Negative (Negative); Protein,Urine Negative (Negative); Specific Gravity, Urine >= 1.030 (1.005-1.030); Urobilinogen,Urine 0.2 EU/dl (0.2)
--- NOTE | 2021-05-11 02:41 | PC.NURSE ---
Pt back from rad
[2021-05-11 02:42] LABS: Amorphous Sediment,Urine Trace /lpf
[2021-05-11 02:42] LABS: Erythrocyte Sedimentation Rate 86 mm/hr (0-30)
[2021-05-11 02:43] LABS: Alanine Aminotransferase 146 U/L (12-78); Alkaline Phosphatase 130 U/L (38-126); Anion Gap 9.7 mEq/L (5-15); Aspartate Amino Transferase 111 U/L (14-36); Bilirubin,Direct 0.1 mg/dl (0.0-0.4); Bilirubin,Indirect 0.3 mg/dL (0.0-0.9); Bilirubin,Total 0.4 mg/dl (0.2-1.3); Bilirubin,Unconjugated 0.3 mg/dL (0.0-1.1); Blood Urea Nitrogen 22 mg/dl (7-17); Calcium 9.1 mg/dl (8.4-10.2); Carbon Dioxide 30 mmol/L (22.0-30.0); Chloride 101 mmol/L (98-107); Creatinine Clearance Estimated 43 mL/min (50-200); Estimated Glomerular Filt Rate 156 ml/min (>60); GFR (African American) 189 ML/MIN (>60); Glucose 162 mg/dl (74-100); Magnesium 1.5 mg/dl (1.6-2.3); Potassium 3.7 mmoL/L (3.5-5.1); Sodium 137 mmol/L (136-145); Total Protein,Serum 7.7 g/dl (6.3-8.2)
[2021-05-11 02:48] LABS: C-Reactive Protein 28.9 mg/L (0-4)
[2021-05-11 03:02] LABS: Procalcitonin 0.033 ng/mL (0.0-2.0); T4 (Thyroxine) 8.5 ug/dl (5.53-11.0)
[2021-05-11 03:16] LABS: Thyroid Stimulating Hormone 1.23 uIU/mL (0.465-4.68)
[2021-05-11 03:21] LABS: Troponin I < 0.01 ng/ml (0.00-0.034)
[2021-05-11 03:24] LABS: Coronavirus 19, PCR Not Detected (NotDetected); Influenza A, PCR Not Detected (NotDetected); Influenza B, PCR Not Detected (NotDetected)
--- NOTE | 2021-05-11 03:56 | HMH.EDSYNC ---
ED Disposition Clinical Impression: Syncopal episodes Qualifiers: Syncope type: unspecified Qualified Code(s): R55 - Syncope and collapse Disposition: Home, Self-Care Condition on Discharge: Good Instructions: DI for Syncope in Adults (Fainting) Additional Instructions: see pcp for follow up Referrals: Jean Kwan MD [Primary Care Provider] - - Critical Care Critical Care Time: No Attestation: On 05/11/21, the high probability of a clinically significant, sudden or life threatening deterioration of the following system(s) required my full and direct attention, intervention and personal management. The time I documented below is in addition to time spent performing reported procedures but includes the following listed in this critical care notation. Medical Decision Making - Medical Records Medical records reviewed: Yes: I reviewed the patient's medical records. - Andrzej Inquiry Pt receiving controlled substance: No Vital Signs: 05/11/21 01:45 05/11/21 02:45 05/11/21 03:00 Temperature 97.9 F Temperature Source Oral Pulse Rate 69 65 Pulse Rate [Orthostatic Lying] Pulse Rate [Orthostatic Sitting] Pulse Rate [Orthostatic Standing] Pulse Rate [Right] 69 Respiratory Rate 17 14 15 Blood Pressure 172/74 H 153/61 H Blood Pressure [Orthostatic Lying] Blood Pressure [Orthostatic Sitting] Blood Pressure [Orthostatic Standing] Blood Pressure [Right Arm] 144/68 H Blood Pressure Mean 106 84 Blood Pressure Mean [Right Arm] 93 Blood Pressure Source [Right Arm] Automatic Cuff 02 Sat by Pulse Oximetry 99 99 100 Oxygen Delivery Method Room Air Room Air Room Air 05/11/21 03:03 05/11/21 03:30 05/11/21 04:00 Temperature Temperature Source Pulse Rate 63 70 Pulse Rate [Orthostatic Lying] 68 Pulse Rate [Orthostatic Sitting] 75 Pulse Rate [Orthostatic Standing] 68 Pulse Rate [Right] Respiratory Rate 17 15 Blood Pressure 140/56 L 162/66 H Blood Pressure [Orthostatic Lying] 153/61 H Blood Pressure [Orthostatic Sitting] 140/59 L Blood Pressure [Orthostatic Standing] 153/60 H Blood Pressure [Right Arm] Blood Pressure Mean 84 81 Blood Pressure Mean [Right Arm] Blood Pressure Source [Right Arm] 02 Sat by Pulse Oximetry 97 99 Oxygen Delivery Method Room Air Room Air 05/11/21 04:30 05/11/21 05:00 Temperature Temperature Source Pulse Rate 71 65 Pulse Rate [Orthostatic Lying] Pulse Rate [Orthostatic Sitting] Pulse Rate [Orthostatic Standing] Pulse Rate [Right] Respiratory Rate 15 18 Blood Pressure 150/57 H 154/57 H Blood Pressure [Orthostatic Lying] Blood Pressure [Orthostatic Sitting] Blood Pressure [Orthostatic Standing] Blood Pressure [Right Arm] Blood Pressure Mean 80 89 Blood Pressure Mean [Right Arm] Blood Pressure Source [Right Arm] 02 Sat by Pulse Oximetry 98 98 Oxygen Delivery Method Room Air Room Air - Lab Data Lab results reviewed: Yes: I reviewed the patient's lab results. Lab Results 05/11/21 01:57: WBC 10.5, RBC 3.80 L, Hgb 10.6 L, Hct 33.0 L, MCV 86.8, MCH 27.9, MCHC 32.1, RDW 14.6, Plt Count 205, MPV 8.7, Neut % (Auto) 82.8 H, Lymph % (Auto) 12.2, Kendall % (Auto) 3.6, Eos % (Auto) 0.5, Baso % (Auto) 0.9, Neut # (Auto) 8.7 H, Lymph # (Auto) 1.3, Kendall # (Auto) 0.4, Eos # (Auto) 0.1, Baso # (Auto) 0.1, ESR 86 H 05/11/21 01:57: Sodium 137, Potassium 3.7, Chloride 101, Carbon Dioxide 30, Anion Gap 9.7, BUN 22 H, Creatinine 0.40 L, Estimated Creat Clear 43, Estimated GFR 156, Est GFR ( Amer) 189, Glucose 162 H, Calcium 9.1, Magnesium 1.5 L, Total Bilirubin 0.4, Direct Bilirubin 0.1, Conjugated Bilirubin 0.0, Indirect Bilirubin 0.3, Unconjugated Bilirubin 0.3, AST 111 H, ALT 146 H, Alkaline Phosphatase 130 H, Troponin I < 0.01, C-Reactive Protein 28.9 H, Total Protein 7.7, Albumin 4.0, Procalcitonin 0.033, TSH 1.23, Thyroxine (T4) 8.5 05/11/21 01:57: Digoxin 0.90 05/11/21 01:57: NT-Pro-B Natriuret Pep 49.9
[2021-05-11 05:55] LABS: Troponin I < 0.01 ng/ml (0.00-0.034)
--- NOTE | 2021-05-11 07:07 | PC.NURSE ---
Respiratory at bedside with halter monitor
--- NOTE | 2021-05-11 08:55 | PC.NURSE ---
Patient calling ride to come get her
== END 2021-05-11 09:32 | disposition home or self-care (01) ==
PROVIDERS: Emergency Provider Emergency Medicine; PCP Internal Medicine Adolescent Medicine
DX: R55 Syncope and collapse (principal); F41.8 Other specified anxiety disorders; E11.65 Type 2 diabetes mellitus with hyperglycemia; I10 Essential (primary) hypertension; Z79.899 Other long term (current) drug therapy
CPT/HCPCS: 70450; 71045; 72125; 72170; 80048; 80076; 80162; 81001; 83735; 83880; 84145; 84436; 84443; 84484; 85025; 85651; 86140; 93005; 93225; 93226; 96365; 99284; C9803; U0003; U0005

== ENCOUNTER 2021-05-29 14:12 | Emergency (ER) | payer MEDICARE, MEDICAID, SELFPAY ==
[2021-05-29 14:40] VITALS: BP 157/65; PULSE 84; RESP 16; TEMP 37.2; O2SAT 97; BMI 22.2
--- NOTE | 2021-05-29 15:05 | HMH.EDUTC ---
[facility] [place] Disposition Clinical Impression: Bilateral lower extremity edema, LEMON (nonalcoholic steatohepatitis) Disposition: Home, Self-Care Condition on Discharge: Good Instructions: DI for Peripheral Edema -- Bilateral Additional Instructions: Fluid pill daily until you see Dr Laura Keep feet elevated We will try to get you compression stockings at follow up. Prescriptions: Spironolactone [Aldactone 25mg Tab] 25 mg PO DAILY 14 Days #14 tab Transmission Status: Pending to [facility] Referrals: Shaheen Laura MD [Primary Care Provider] - Time of Disposition: 15:11 Medical Decision Making - Medical Records Medical records reviewed: Yes: I reviewed the patient's medical records. MR Comment: Reviewed patient records. Seen in ER 09/05 X 2 for edema of BLE. Labwork, bedside US normal. Saw PCP a few months ago for BLE edema. Told to elevate legs. Seen in ER again a few months ago - workup negative. Had elevated liver enzymes last spring. States she has LEMON. Also has DM. Previously in [facility] but left. - Andrzej Inquiry Pt receiving controlled substance: No Vital Signs: 05/29/21 14:40 Temperature 98.9 F Temperature Source Oral Pulse Rate [Brachial] 84 Respiratory Rate 16 Blood Pressure [Right Arm] 157/65 H Blood Pressure Mean [Right Arm] 95 Blood Pressure Source [Right Arm] Automatic Cuff Blood Pressure Position [Right Arm] Sitting 02 Sat by Pulse Oximetry 97 [facility] [place] HPI - General Stated complaint: rash, swollen feet Time Seen by Provider: 05/29/21 15:05 Mode of Arrival: Ambulatory Source of Information: Patient Limitations: No Limitations Description of Symptoms (Recalled from Triage Doc. by RN): swollen feet and legs and rash on both legs for one month HEENT Symptoms (Recalled from RN notes): No Resp Symptoms (Recalled from RN notes): No Skin Symptoms (Recalled from RN notes): Yes MS Symptoms (Recalled from RN notes): No Functional Status (Recalled from RN notes): n/a - History of Present Illness Provider Complaint: Patient presents with edema of bilateral feet. She also notes rash on right lower leg. No pain in calves, though she does have left knee pain. States she sees [facility] for [facility]. No shortness of breath. Onset (ago): month(s) (1) Location: left, right, lower extremity Treatments prior to arrival: none - Related Data Home Medications Medication Instructions Recorded Confirmed Digoxin [Digoxin 0.25mg Tablet] 250 mcg PO DAILY 02/01/18 05/11/21 Metoprolol Tartrate [Lopressor 25 mg PO DAILY 02/01/18 05/11/21 25mg tablet] Venlafaxine HCl 50 mg PO BID 02/01/18 05/11/21 Quetiapine Fumarate [Seroquel] 50 mg PO BID 04/04/18 05/11/21 atorvastatin 40 mg tablet 40 mg PO DAILY tab 07/23/20 05/11/21 lisinopril 5 mg tablet 5 mg PO QHS tab 07/23/20 05/11/21 metformin 1,000 mg tablet 1,000 mg PO DAILY tab 04/23/21 05/11/21 Previous Rx's Medication Instructions Recorded naproxen 500 mg tablet 500 mg PO BID PRN 30 Days #60 tab 05/02/19 oxycodone 5 mg tablet 5 mg PO TID PRN #45 tab 11/20/20 Spironolactone [Aldactone 25mg 25 mg PO DAILY 14 Days #14 tab 05/29/21 Tab] Allergies Allergy/AdvReac Type Severity Reaction Status Date / Time aspirin Allergy Verified 05/11/21 05:31 acetaminophen [ACETAMINOPHEN] AdvReac d/t fatty Verified 05/11/21 05:31 liver - Worker's Comp Is this a Worker's Comp case?: No Is this an [facility] Worker's Comp?: No Is this a Nathaniel Worker's Comp?: No [facility] History - Hepatitis A Screen Drug use history?: No High risk sexual behaviors?: No History of sexually transmitted infection?: No Currently employed?: No Childcare worker?: No Do you have indoor plumbing?: Yes Do you have electricity?: Yes Attestation statement:: This patient has been screened for Hepatitis A risk factors. I have reviewed the patient's past medical history: Yes Medical History: Reports:: Anxiety, Arrhythmia, Depression, Diabetes Mellitus
[2021-05-29 15:13] VITALS: BP 157/65; PULSE 84; RESP 18; TEMP 37.2
== END 2021-05-29 15:13 | disposition home or self-care (01) ==
PROVIDERS: Emergency Provider Physician Assistant; PCP Emergency Medicine
DX: K75.81 Nonalcoholic steatohepatitis (NASH) (principal); F41.8 Other specified anxiety disorders; I10 Essential (primary) hypertension; Z79.899 Other long term (current) drug therapy
CPT/HCPCS: G0463; 99202

== ENCOUNTER 2021-06-03 08:36 | Emergency (ER) | payer MEDICARE, MEDICAID, SELFPAY ==
[2021-06-03] VITALS (7 sets, daily range): BP systolic 165–181; BP diastolic 68–80; PULSE 54–81; RESP 16; TEMP 36.8–37; O2SAT 93–100; BMI 22.2
--- NOTE | 2021-06-03 08:55 | CA_ITS ---
FINAL REPORT CLINICAL HISTORY: SHARA LE EDEMA,DM FINDINGS: Color Doppler, duplex Doppler and compression sonography of the bilateral lower extremities was performed. There is no evidence of deep venous thrombosis from the level of the groin to the calf. The deep veins are patent and compressible. There is a moderate popliteal cyst on the left. IMPRESSION: No evidence of deep venous thrombosis bilateral lower extremities. Reviewed, Interpreted and Dictated by Gabriel Delgado III, MD Transcribed by Farhat Trujillo Authenticated by Gabriel Delgado III, MD on 06/03/2021 11:38:[address] [facility]
--- NOTE | 2021-06-03 08:57 | HMH.EDGENADL ---
ED Disposition Clinical Impression: Leg swelling, Lower extremity edema Disposition: Home, Self-Care Condition on Discharge: Good Instructions: DI for Skin Abscess Referrals: Shaheen Laura MD [Primary Care Provider] - - Critical Care Critical Care Time: No Attestation: On 06/03/21, the high probability of a clinically significant, sudden or life threatening deterioration of the following system(s) required my full and direct attention, intervention and personal management. The time I documented below is in addition to time spent performing reported procedures but includes the following listed in this critical care notation. Medical Decision Making - Andrzej Inquiry Pt receiving controlled substance: No Vital Signs: 06/03/21 08:38 06/03/21 09:30 06/03/21 10:00 Temperature 98.6 F Temperature Source Oral Pulse Rate 75 76 Pulse Rate [Right Radial] 81 Respiratory Rate 16 Blood Pressure 170/71 H 177/80 H Blood Pressure [Right Arm] 181/76 H Blood Pressure Mean [Right Arm] 111 Blood Pressure Source Automatic Cuff Automatic Cuff Blood Pressure Source [Right Arm] Automatic Cuff Blood Pressure Position Sitting Sitting Blood Pressure Position [Right Arm] Sitting 02 Sat by Pulse Oximetry 100 99 98 Oxygen Delivery Method Room Air Room Air Room Air Medical Decision Narrative: 71-year-old female presents emergency department with bilateral lower extremity swelling with right greater than the left with some redness in the distal right lower extremity, but without tenderness to palpation, without patient having fevers, without significant warmth, without concern for cellulitis or skin infection at this time. Patient states that she had had some right inguinal area tenderness, without any lymphadenopathy on physical examination. Patient has history of bilateral lower extremity swelling the past with negative DVT ultrasound of the right lower extremity in 03/2021. Patient does not have chest pain, shortness of breath or dyspnea on ambulation, and has lungs are clear to auscultation bilaterally without concern for acute heart failure exacerbation at this time. DVT ultrasound today of bilateral lower extremities did not show evidence of acute deep venous thrombosis and patient was able be discharged from the emergency department with return precautions and primary care physician follow-up, as well as instructions for elevation of lower extremities, and use of compression socks. Dr. Laura, patient's PCP was called prior to d/c, and he is okay with the patient following up and with plan, stating that patient is recently had an echocardiogram was not concerning. General Adult HPI - General Chief complaint: Extremity Problem,Nontraumatic Stated complaint: edema Time Seen by Provider: 06/03/21 08:57 - History of Present Illness HPI narrative: Patient is a 71-year-old female presenting to the emergency department with 2 to 3-day history of bilateral lower extremity swelling with right greater than the left. Patient denies fevers and states that she has had some redness in the right lower extremity about the ankle which he believes is irritation due to her socks. Patient states that she has had some discomfort in her right inguinal region and states that she has had swelling in her bilateral lower extremities in the past states that the past 2 to 3 days have been worse than patient's prior baseline. Patient denies history of DVT or pulmonary emboli, and denies history of shortness of breath or chest pain or vomiting, diarrhea, abdominal pain, dysuria or other constitutional symptoms. Patient states that she is still ambulatory and able to complete all activities of daily living. Patient GCS is 15 and patient is in good spirits. Patient most recently had a sound of the right lower extremity in March 2021 without evidence of DVT. - Related Data Home Medications Medication Instructions Recorded Confirm
--- NOTE | 2021-06-03 11:35 | PC.NURSE ---
CARMEN SHAH speaking with Dr. Laura
--- NOTE | 2021-06-03 12:05 | PC.NURSE ---
Pt up to restroom
--- NOTE | 2021-06-03 12:16 | PC.NURSE ---
Pt returned from restroom, attempting to find a ride at this time.
--- NOTE | 2021-06-03 13:00 | SW/DCPLANNER ---
I have arranged [employer] for this patient from ED today. ID#[id number]
== END 2021-06-03 13:35 | disposition home or self-care (01) ==
PROVIDERS: Emergency Provider Student in an Organized Health Care Education/Training Program; PCP Emergency Medicine
DX: R60.0 Localized edema (principal); I10 Essential (primary) hypertension; E11.9 Type 2 diabetes mellitus without complications; F41.8 Other specified anxiety disorders
CPT/HCPCS: 93970; 99282; 99284

== ENCOUNTER 2021-06-06 21:32 | Observation (INO) | payer MEDICARE, MEDICAID, SELFPAY ==
[2021-06-06] VITALS (7 sets, daily range): BP systolic 122–151; BP diastolic 48–65; PULSE 70–80; RESP 20; TEMP 36.5; O2SAT 96–98; BMI 23.6
--- NOTE | 2021-06-06 21:46 | CT_ITS ---
PROCEDURE INFORMATION: Exam: CT Head Without Contrast Exam date and time: 06/06/2021 9:46 PM Age: 71 years old Clinical indication: Injury or trauma; Fall; Blunt trauma (contusions or hematomas); Consciousness not specified; Injury date: 06/06/2021; Additional info: Fall laceration back of head TECHNIQUE: Imaging protocol: Computed tomography of the head without contrast. Radiation optimization: All CT scans at this facility use at least one of these dose optimization techniques: automated exposure control; mA and/or kV adjustment per patient size (includes targeted exams where dose is matched to clinical indication); or iterative reconstruction. COMPARISON: CT HEAD/BRAIN WO CON 05/11/2021 2:25 AM FINDINGS: Brain: Chronic microvascular ischemic disease without acute intraparenchymal hemorrhage and no obvious acute ischemic stroke. No intra-or extra-axial fluid collection, no supra-or infratentorial mass, no mass effect or midline shift. Cerebral ventricles: Mildly prominent ventricles, sulci and basal cisterns without evidence of hydrocephalus. Paranasal sinuses: No significant mucoperiosteal thickening in the visualized paranasal sinuses. Mastoid air cells: No mastoid effusion. Bones/joints: Visualized skull bones are grossly normal. Soft tissues: LEFT paramedian posterior vertex scalp hematoma. IMPRESSION: 1. Chronic microvascular disease and generalized atrophy without acute intracranial abnormality. 2. No evidence of acute hemorrhage, mass lesion or obvious acute ischemic infarction.
--- NOTE | 2021-06-06 21:46 | XR_ITS ---
PROCEDURE INFORMATION: Exam: XR Pelvis Exam date and time: 06/06/2021 9:46 PM Age: 71 years old Clinical indication: Injury or trauma; Fall; Blunt trauma (contusions or hematomas); Bilateral; Pelvic region; Injury date: 06/06/2021; Patient HX: Trauma protocol TECHNIQUE: Imaging protocol: XR pelvis. Views: 1 or 2 view. COMPARISON: CR XR PELVIS 1-2V 05/11/2021 2:35 AM FINDINGS: Bones/joints: Moderate osteophytosis and degenerative changes involve the bilateral hip joints and pubic symphysis. No radiographic evidence of acute osseous abnormality. Soft tissues: Unremarkable. IMPRESSION: 1. Moderate osteophytosis and degenerative changes involve the bilateral hip joints and pubic symphysis. 2. No radiographic evidence of acute osseous abnormality.
--- NOTE | 2021-06-06 21:46 | CT_ITS ---
PROCEDURE INFORMATION: Exam: CT Cervical Spine Without Contrast Exam date and time: 06/06/2021 9:46 PM Age: 71 years old Clinical indication: Injury or trauma; Fall; Blunt trauma; Injury date: 06/06/2021; Additional info: Fall hit back of head TECHNIQUE: Imaging protocol: Computed tomography images of the cervical spine without contrast. Radiation optimization: All CT scans at this facility use at least one of these dose optimization techniques: automated exposure control; mA and/or kV adjustment per patient size (includes targeted exams where dose is matched to clinical indication); or iterative reconstruction. COMPARISON: CT CERVICAL SPINE WO CON 05/11/2021 2:28 AM FINDINGS: Bones/joints: Loss of normal curvature of the spine, alignment of the vertebral bodies is grossly normal. No evidence of acute compression fracture or deformity in the cervical spine. No displaced fracture involving the vertebral bodies or their posterior elements. Facet joints are normally aligned without facetal dislocation or subluxation. No fracture of the dens, lateral C1-C2 articulation, atlantooccipital joints and central atlantodental joint are unremarkable. Discs/Spinal canal/Neural foramina: Chronic degenerative changes in the visualized cervical spine. Lungs: NA Soft tissues: Pre-and paravertebral soft tissues are grossly normal. Circumferential wall thickening of the cervical and visualized thoracic esophagus suggestive of reflux disease/esophagitis. Indeterminate thyroid gland nodules. Atherosclerotic calcification of the carotid arteries. IMPRESSION: Chronic degenerative changes without an acute cervical spine injury or abnormality. COMMENTS: Consistent with the [employer]'s Incidental Findings Committee white paper (J [employer] Regina Radiol 2015): In patients aged 35 years and older with an incidental thyroid nodule equal to or greater than 1.[address], MRI or extrathyroidal US, further evaluation with dedicated thyroid US is recommended for patients with normal life expectancy and without comorbidities. For smaller nodules without suspicious features, no further evaluation or follow up is recommended.
--- NOTE | 2021-06-06 21:46 | XR_ITS ---
PROCEDURE INFORMATION: Exam: XR Chest Exam date and time: 06/06/2021 9:46 PM Age: 71 years old Clinical indication: Injury or trauma; Fall; Blunt trauma (contusions or hematomas); Injury date: 06/06/2021; Patient HX: Trauma protocol TECHNIQUE: Imaging protocol: XR of the chest. Views: 1 view. COMPARISON: CR XR CHEST AP 05/11/2021 2:34 AM FINDINGS: Lungs: Unremarkable. No consolidation. Pleural spaces: Unremarkable. No pleural effusion. No pneumothorax. Heart/Mediastinum: Unremarkable. No cardiomegaly. Bones/joints: Unremarkable. IMPRESSION: No acute findings.
[2021-06-06 22:02] LABS: Basophils % 0.3 % (0.1-2.0); Eosinophils # 0.1 K/mm3 (0.0-0.4); Hematocrit 32.3 % (37.0-47.0); Hemoglobin 10.3 g/dL (12.2-16.2); Lymphocytes # 1.9 K/mm3 (0.7-4.5); Lymphocytes % 24.7 % (10-50); Mean Corpuscular HGB Conc 31.8 g/dL (31.8-35.4); Mean Corpuscular Hemoglobin 27.2 pg (27.0-31.2); Mean Corpuscular Volume 85.4 fl (81-99); Mean Platelet Volume 8.8 fl (7.4-10.4); Monocytes # 0.3 K/mm3 (0.1-1.0); Monocytes % 4.4 % (1.7-9.3); Neutrophils # 5.4 K/mm3 (1.8-7.8); Neutrophils % 69.7 % (37.0-80.0); Platelet Count 202 K/mm3 (142-424); Red Blood Count 3.79 M/mm3 (4.20-5.40); White Blood Count 7.7 K/mm3 (4.8-10.8)
[2021-06-06 22:08] LABS: Alanine Aminotransferase 117 U/L (12-78); Alkaline Phosphatase 136 U/L (38-126); Anion Gap 8.6 mEq/L (5-15); Aspartate Amino Transferase 113 U/L (14-36); Bilirubin,Total 0.5 mg/dl (0.2-1.3); Blood Urea Nitrogen 27 mg/dl (7-17); Carbon Dioxide 30 mmol/L (22.0-30.0); Chloride 103 mmol/L (98-107); Creatinine Clearance Estimated 51 mL/min (50-200); Estimated Glomerular Filt Rate 156 ml/min (>60); GFR (African American) 189 ML/MIN (>60); Globulin 3.9 g/dL (1.3-3.2); Glucose 127 mg/dl (74-100); Potassium 3.6 mmoL/L (3.5-5.1); Sodium 138 mmol/L (136-145); Total Protein,Serum 7.9 g/dl (6.3-8.2)
--- NOTE | 2021-06-06 22:34 | HMH.EDFALL ---
ED Disposition Clinical Impression: Type 2 diabetes mellitus with hyperglycemia, without long-term current use of insulin, LEMON (nonalcoholic steatohepatitis), Bilateral lower extremity edema Concussion without loss of consciousness Qualifiers: Encounter type: initial encounter Qualified Code(s): S06.0X0A - Concussion without loss of consciousness, initial encounter Syncope Qualifiers: Syncope type: unspecified Qualified Code(s): R55 - Syncope and collapse Scalp abrasion Qualifiers: Encounter type: initial encounter Qualified Code(s): S00.01XA - Abrasion of scalp, initial encounter Fall Qualifiers: Encounter type: initial encounter Qualified Code(s): W19.XXXA - Unspecified fall, initial encounter Disposition: Admitted as Observation Condition on Discharge: Fair Referrals: Shaheen Laura MD [Primary Care Provider] - - Critical Care Critical Care Time: No Attestation: On 06/06/21, the high probability of a clinically significant, sudden or life threatening deterioration of the following system(s) required my full and direct attention, intervention and personal management. The time I documented below is in addition to time spent performing reported procedures but includes the following listed in this critical care notation. Medical Decision Making - Medical Records Medical records reviewed: Yes: I reviewed the patient's medical records. - Andrzej Inquiry Pt receiving controlled substance: No Vital Signs: 06/06/21 21:28 06/06/21 21:50 Temperature 97.7 F Temperature Source Oral Pulse Rate [Apical] 80 Respiratory Rate 20 Blood Pressure [Orthostatic Lying Right Arm] 142/59 H Blood Pressure [Orthostatic Sitting] 143/48 H Blood Pressure [Orthostatic Standing] 122/52 L Blood Pressure [Right Arm] 151/65 H Blood Pressure Mean [Right Arm] 93 Blood Pressure Source [Right Arm] Manual Cuff/ Palpation Blood Pressure Position [Right Arm] Supine 02 Sat by Pulse Oximetry 98 Oxygen Delivery Method Room Air - Lab Data Lab results reviewed: Yes: I reviewed the patient's lab results. Lab Results 06/06/21 21:44: WBC 7.7, RBC 3.79 L, Hgb 10.3 L, Hct 32.3 L, MCV 85.4, MCH 27.2, MCHC 31.8, RDW 14.0, Plt Count 202, MPV 8.8, Neut % (Auto) 69.7, Lymph % (Auto) 24.7, [place] % (Auto) 4.4, Eos % (Auto) 1.0, Baso % (Auto) 0.3, Neut # (Auto) 5.4, Lymph # (Auto) 1.9, [place]y # (Auto) 0.3, Eos # (Auto) 0.1, Baso # (Auto) 0.0 06/06/21 21:44: Sodium 138, Potassium 3.6, Chloride 103, Carbon Dioxide 30, Anion Gap 8.6, BUN 27 H, Creatinine 0.40 L, Estimated Creat Clear 51, Estimated GFR 156, Est GFR ( Amer) 189, Glucose 127 H, Calcium 9.0, Total Bilirubin 0.5, AST 113 H, ALT 117 H, Alkaline Phosphatase 136 H, Total Protein 7.9, Albumin 4.0, Globulin 3.9 H, Albumin/Globulin Ratio 1.0 L 06/06/21 21:44: C-Reactive Protein 19.0 H 06/06/21 21:44: Procalcitonin 0.033 06/06/21 21:44: Troponin I < 0.01 06/06/21 22:54: Urine Color Yellow, Urine Appearance Clear, Urine pH 6.0, Ur Specific [place] 1.020, Urine Protein Negative, Urine Glucose (UA) Negative, Urine Ketones Negative, Urine Blood Negative, Urine Nitrate Negative, Urine Bilirubin Negative, Urine Urobilinogen 0.2, Ur Leukocyte Esterase Negative, Urine WBC 3-5, Ur Squamous Epith Cells 3-5, Ur Renal Epithelial Cell 3-5 Result diagrams: 06/06/21 21:44 06/06/21 21:44 Orders (Tests/Meds): ORDERS Category Date Time Status Troponin I Q3H Lab 06/07/21 02:15 Ordered Troponin I Q3H Lab 06/07/21 05:15 Ordered - Radiology Data #1 Image(s): Chest, Pelvis Image Reviewed: Yes I have reviewed radiologist's interpretation Preliminary Findings: No Fracture Seen - CT Data CT Scan: Head, C-Spine Time Received: 23:[address] Reviewed: Yes: I have viewed the radiologist's interpretation Preliminary Findings: No Fracture Seen - ECG Data Tracing #1 Arrhythmias present: wandering atrial pacemaker Ischemic changes: non-specific ST-T wave changes ECG compared to
[2021-06-06 22:55] LABS: Microscopic, Urine URINE MICROSCOPIC (MICROSCOPIC)
[2021-06-06 23:05] LABS: Appearance,Urine CLEAR (Clear); Bilirubin,Urine Negative (Negative); Blood, Urine Negative (Negative); Color,Urine YELLOW (Yellow); Glucose,Urine (UA) Negative (Negative); Ketones,Urine Negative (Negative); Leukocyte Esterase,Urine Negative (Negative); Nitrate,Urine Negative (Negative); Protein,Urine Negative (Negative); Urobilinogen,Urine 0.2 EU/dl (0.2)
[2021-06-06 23:10] LABS: Procalcitonin 0.033 ng/mL (0.0-2.0)
[2021-06-06 23:41] LABS: Troponin I < 0.01 ng/ml (0.00-0.034)
[2021-06-06 23:49] LABS: Coronavirus 19, PCR Not Detected (NotDetected); Influenza A, PCR Not Detected (NotDetected); Influenza B, PCR Not Detected (NotDetected)
[2021-06-07] VITALS (9 sets, daily range): BP systolic 121–153; BP diastolic 52–69; PULSE 60–83; RESP 16–20; TEMP 36.4–36.9; O2SAT 95–100; BMI 22.2
--- NOTE | 2021-06-07 01:01 | PC.NURSE ---
patient up to floor via wheelchair @ this time
[2021-06-07 03:13] LABS: Troponin I < 0.01 ng/ml (0.00-0.034)
[2021-06-07 06:16] LABS: Chloride 105 mmol/L (98-107)
[2021-06-07 06:17] LABS: Potassium 3.8 mmoL/L (3.5-5.1); Sodium 136 mmol/L (136-145)
[2021-06-07 06:19] LABS: Blood Urea Nitrogen 20 mg/dl (7-17); Creatinine Clearance Estimated 48 mL/min (50-200); Estimated Glomerular Filt Rate 156 ml/min (>60); GFR (African American) 189 ML/MIN (>60)
[2021-06-07 06:20] LABS: Anion Gap 3.8 mEq/L (5-15); Calcium 8.2 mg/dl (8.4-10.2); Carbon Dioxide 31 mmol/L (22.0-30.0); Glucose 110 mg/dl (74-100); Magnesium 1.7 mg/dl (1.6-2.3)
[2021-06-07 06:24] LABS: Basophils % 0.4 % (0.1-2.0); Eosinophils # 0.1 K/mm3 (0.0-0.4); Eosinophils % 0.6 % (0.1-12.0); Hematocrit 32.6 % (37.0-47.0); Hemoglobin 10.2 g/dL (12.2-16.2); Lymphocytes # 1.7 K/mm3 (0.7-4.5); Mean Corpuscular HGB Conc 31.3 g/dL (31.8-35.4); Mean Corpuscular Hemoglobin 26.7 pg (27.0-31.2); Mean Corpuscular Volume 85.4 fl (81-99); Mean Platelet Volume 8.6 fl (7.4-10.4); Monocytes # 0.5 K/mm3 (0.1-1.0); Monocytes % 6.6 % (1.7-9.3); Neutrophils # 4.9 K/mm3 (1.8-7.8); Neutrophils % 68.4 % (37.0-80.0); Platelet Count 186 K/mm3 (142-424); Red Blood Count 3.81 M/mm3 (4.20-5.40); Red Cell Distribution Width 13.9 % (11.5-17.5); White Blood Count 7.1 K/mm3 (4.8-10.8)
[2021-06-07 06:41] LABS: Troponin I < 0.01 ng/ml (0.00-0.034)
--- NOTE | 2021-06-07 08:12 | HMH.HP ---
*Admission Date: 06/06/21 *Chief complaint: syncope *History of present illness: this patient fell at home states she was walking from her restroom to her bedroom tonight when she fell and hit the back of her head. Patient is unsure if she lost consciousness. Denies injury with exception of the laceration, n/v. States that she is unsure of what caused the fall but does not remember tripping or the fall pt with fall with head injury - pt uses walker but uncertain as to why fell - has hx of weakness - uncertain as to loc - no def palpitations pt was admitted at this time for eval and treatment [facility] History I have reviewed the patient's past medical history: Yes Medical History: Reports:: Anxiety, Arrhythmia, Depression, Diabetes Mellitus Type 2, Hyperlipidemia, Hypertension, MRSA Denies:: Cancer, Diabetes Mellitus Type 1, Internal Pacemaker, Lung Disease, Seizures *Have you ever received a pneumonia vaccine?: Yes *Have you received a flu vaccine this season?: Yes Other Medical History: Reports: Other Other Surgeries: Yes: Cholecystectomy, Hysterectomy-Total, Other (back I&D). No: Pacemaker Amputation: No Fractures: No - *Social History Smoking Status: Never smoker Alcohol Intake: never Alcohol Intake Frequency:: other Substance Use Type: denies use *Occupational Status:: retired Housing: apartment Household Members: family *Travel in the last 8 weeks: None - Psychiatric History Pschychiatric History:: Reports:: Anxiety, Depression Family Hx:: Cancer Review of Systems - Review of Systems Review of systems:: pertinent systems reviewed and negative unless documented below - Constitutional Reports weakness, Denies fever(s) - Eyes Denies change in vision - ENT Reports dry mouth - *Cardiovascular Denies chest pain at rest - *Respiratory Denies cough - *Gastrointestinal Denies abdominal pain - *Genitourinary Denies blood in urine - *Musculoskeletal Reports joint pain - Integumentary/Breasts Denies rash - *Neurologic Reports frequent falls, Reports headache(s), Denies abnormal speech, Denies localized weakness, Denies seizure-like activity - Psychiatric Denies hopelessness Meds Home Medications Medication Instructions Recorded Confirmed Type Digoxin [Digoxin 0.25mg Tablet] 250 mcg PO DAILY 02/01/18 06/06/21 History Metoprolol Tartrate [Lopressor 25 mg PO DAILY 02/01/18 06/06/21 History 25mg tablet] Venlafaxine HCl 50 mg PO BID 02/01/18 06/07/21 History Quetiapine Fumarate [Seroquel] 50 mg PO BID 04/04/18 06/07/21 History naproxen 500 mg tablet 500 mg PO BID PRN 30 Days #60 tab 05/02/19 06/07/21 Rx lisinopril 5 mg tablet 5 mg PO QHS tab 07/23/20 06/07/21 History oxycodone 5 mg tablet 5 mg PO TID PRN #45 tab 11/20/20 06/07/21 Rx metformin 1,000 mg tablet 1,000 mg PO DAILY tab 04/23/21 06/07/21 History atorvastatin 40 mg tablet 40 mg PO DAILY #90 tab 06/02/21 06/07/21 Rx Spironolactone [Aldactone 25mg 25 mg PO DAILY 06/06/21 06/07/21 History Tab] Allergies Allergy/AdvReac Type Severity Reaction Status Date / Time aspirin Allergy Verified 06/07/21 01:33 acetaminophen [ACETAMINOPHEN] AdvReac d/t fatty Verified 06/07/21 01:33 liver Exam Vital signs and Labs for Last 24 Hours: Temp Pulse Resp BP Pulse Ox 97.9 F 71 18 146/60 H 99 06/07/21 04:00 06/07/21 04:00 06/07/21 04:00 06/07/21 04:00 06/07/21 04:00 Laboratory Results - last 24 hr 06/06/21 21:44: WBC 7.7, RBC 3.79 L, Hgb 10.3 L, Hct 32.3 L, MCV 85.4, MCH 27.2, MCHC 31.8, RDW 14.0, Plt Count 202, MPV 8.8, Neut % (Auto) 69.7, Lymph % (Auto) 24.7, [place] % (Auto) 4.4, Eos % (Auto) 1.0, Baso % (Auto) 0.3, Neut # (Auto) 5.4, Lymph # (Auto) 1.9, [place] # (Auto) 0.3, Eos # (Auto) 0.1, Baso # (Auto) 0.0 06/06/21 21:44: Sodium 138, Potassium 3.6, Chloride 103, Carbon Dioxide 30, Anion Gap 8.6, BUN 27 H, Creatinine 0.40 L, Estimated Creat Clear 51, Estimated GFR 156, Est GFR ( Amer) 189, Glucose 127 H, Calci
--- NOTE | 2021-06-07 08:57 | HMH.PHAVTE ---
[facility] Pharmacy VTE Monitoring - Patient Demographics Allergies/Adverse Reactions: Patient Allergies aspirin Allergy (Verified 06/07/21 01:33) acetaminophen [ACETAMINOPHEN] Adverse Reaction (Verified 06/07/21 01:33) d/t fatty liver Height: 1.65 m Weight: 60.555 kg Patient Problems: Current Active Problems Syncopal episodes (Acute) Bilateral lower extremity edema (Acute) LEMON (nonalcoholic steatohepatitis) (Acute) Concussion without loss of consciousness (Acute) Scalp abrasion (Acute) Fall (Acute) Type 2 diabetes mellitus with hyperglycemia, without long-term current use of insulin (Acute) - VTE Risk Labs: VTE Related Lab Results Hgb 10.2 g/dL (12.2-16.2) L 06/07/21 05:25 Hct 32.6 % (37.0-47.0) L 06/07/21 05:25 Plt Count 186 K/mm3 (142-424) 06/07/21 05:25 BUN 20 mg/dl (7-17) H D 06/07/21 05:25 Creatinine 0.40 mg/dl (0.52-1.04) L 06/07/21 05:25 Estimated Creat Clear 48 mL/min (50-200) 06/07/21 05:25 Was VTE Risk Assessment Performed: Yes VTE Score: 4 VTE Risk Level: Low Risk Clinical Trial Participant: No - Prophylaxis VTE Prophylaxis Ordered?: Yes Types of VTE Prophylaxis: TEDS Knee High Location of Applied Device: Bilateral Lower Extremeties
--- NOTE | 2021-06-07 08:58 | HMH.PHAINT ---
MEDICATION RECONCILIATION COMPLETE USING EXTERNAL PHARMACY FILL HISTORY, VIVEK REPORT, AND MOST RECENT MD OFFICE VISIT.
[2021-06-07 16:42] LABS: POC Glucose,Bedside 154 (70-110)
[2021-06-07 16:42] LABS: POC Glucose,Bedside 132 (70-110)
--- NOTE | 2021-06-07 21:35 | ECG_ITS ---
APPROVED REPORT Exam: Resting ECG HR:76 bpm ECG Measurements Heart Rate 76 AXES VT 139 P 67 QRSd 92 QRS 66 QT 362 T 43 QTc 393 Conclusion SINUS RHYTHM NONSPECIFIC ST & T-WAVE ABNORMALITY BORDERLINE ECG UNCONFIRMED REPORT Electronically signed by : Jean Kwan MD 06/08/2021 18:00:57
[2021-06-08] VITALS: BP 144/66; PULSE 69; PULSE 70; RESP 14; TEMP 36.8; O2SAT 99
[2021-06-08 04:00] VITALS: BP 149/63; PULSE 65; RESP 18; TEMP 36.5; O2SAT 99
[2021-06-08 05:16] VITALS: BMI 22.6
--- NOTE | 2021-06-08 06:41 | PC.NURSE ---
No acute changes. Pt continues to be very pleasant and cooperative. A+O x4. Pt able to ambulate to bathroom using rolling walker with standby/minimum assist. Pt c/o pain in upper bend of left leg at beginning of shift. Pt states I think I pulled a muscle. Ibuprofen administered per MAR with favorable results. Call schuster in reach.
--- NOTE | 2021-06-08 06:43 | CA_ITS ---
APPROVED REPORT EXAM: Comprehensive 2D, Doppler, and color-flow Echocardiogram Digital Account Director: Ana Rosa Martinez RVT Ht: 5 ft 4 in Wt: 135lbs BSA: 1.66 BP: 146/60 mmHg Indications: SYNCOPE,MURMUR,HTN,HLD,DM TDS 2D Dimensions LVOT 1.96 cm (M/F) 1.5-2.5 LA Volume 35.60 mL LA Volume Index 21.57 mL/m2 (M/F) 16-34 M-Mode Dimensions RVDd 2.55 cm (0.9-2.6) LA Diam 2.86 cm (1.9-4.0) LVDd 4.73 cm (3.5-5.7) Ao Diam 2.55 cm (2.0-3.7) LVDs 2.62 cm (3.5-5.7) IVSd 0.65 cm (0.6-1.1) PWd 0.37 cm (0.6-1.1) EF (Teich) 75.80% FS 44.60% EDV (Teich) 103.90 mL TAPSE 2.36 (<1.7) ESV (Teich) 25.10 mL LV Diastology E Decel Time 163.00 (160-240 msec) E/A Ratio 1.4 MED E' 9.90 (< 7 cm/sec) E'/MED E' Ratio 10.20 (>14) LAT E' 10.00 (<10 cm/sec) E/LAT E' Ratio 10.10 (>14) Aortic Valve LVOT Max 109.00 (70-110 cm/s) LVOT VTI 23.19 cm AoV Peak Joel. 175.00 (50-130 cm/s) AO Peak GR. 12.30 mmHg AO Mean GR. 6.10 (<5 mmHg) AO VTI 36.05 (18-25 cm) ROSAURA (VTI) 1.94 (2.5-4.5 cm2) Mitral Valve MV E Max Joel. 101.00 (40-130 cm/s) MV A Velocity 74.00 (40-130 cm/s) E/A Ratio 1.36 MV Decel. Time 163.00 (160-240 ms) MV PHT 48.00 ms Pulmonary Valve PV Peak Velocity 123.00 (50-150 cm/s) Tricuspid Valve TR P. Velocity 171.00 cm/s RAP Estimate 10.00 mmHg RVSP 21.70 mmHg Left Ventricle Left atrium is mildly enlarged, left ventricle is normal size, mild concentric left ventricular hypertrophy, visually estimated ejection fraction 55% with no regional wall motion abnormality, diastolic parameters are inconclusive. Right Ventricle Right atrium is mildly enlarged, right ventricle is normal size and contractility. Aortic Valve Aortic valve is minimally thickened and fibrosed there is no aortic stenosis or aortic insufficiency. Mitral Valve Mitral valve grossly normal, there is mild mitral regurgitation. Tricuspid Valve Tricuspid grossly normal, there is mild tricuspid regurgitation, tricuspid regurgitation jet velocity is inadequate for calculation of the right ventricular systolic pressure. Pulmonic Valve Pulmonic valve is poorly visualized. Great Vessels Aortic root is normal size. Inferior vena cava is normal size with normal inspiratory collapse. Pericardium No significant pericardial effusion noted. Conclusion 1. Mild biatrial enlargement, normal left ventricular size, mild concentric left ventricular hypertrophy, visually estimated ejection fraction 55% with no regional wall motion abnormality, diastolic parameters are inconclusive. 2. Mild mitral and tricuspid regurgitation. 3. No significant pericardial effusion. 4. Inferior vena cava is normal size with normal inspiratory collapse. Electronically signed by : Duke Clemente MD 06/08/2021 20:51:43
[2021-06-08 08:00] VITALS: BP 168/76; PULSE 70; PULSE 72; RESP 17; TEMP 36.6; O2SAT 97
--- NOTE | 2021-06-08 08:41 | HMH.CNCARD ---
History of Present Illness Consult date: 06/08/21 Requesting physician: Shaheen Laura Chief complaint: Recurrent falls, possible syncope Additional Medical History:: 1. Hypertension A. Echocardiogram, 06/2020, EF 55%, mild concentric LVH. No wall motion abnormality. Trace MR and TR. Small pericardial effusion noted. 2. Hyperlipidemia 3. Diabetes mellitus type 2, treatment started approximately 1 year ago 4. Recurrent falls of unknown etiology A. Holter monitor 04/2021, sinus rhythm with PVCs and atrial couplets noted. B. Echo, 06/2020, EF 55% without significant valve disease. 5. Abnormal EKG with elevated troponins,09/2020 A. Left heart catheterization 09/2020, [facility], Dr. Prakash Roman, results left main normal, LAD large with minimal luminal irregularities, circumflex moderate with minimal luminal irregularities, RCA large and angiographically normal B. Echo, 09/2020, normal to hyperdynamic left ventricular ejection fraction without significant valve disease. 6. Colonoscopy, normal, 03/2018, Dr. Noel Gruber. 7. Lower extremity edema A. Bilateral venous Doppler, negative for DVT, 05/2021 History of present illness: this patient fell at home states she was walking from her restroom to her bedroom tonight when she fell and hit the back of her head. Patient is unsure if she lost consciousness. Denies injury with exception of the laceration, n/v. States that she is unsure of what caused the fall but does not remember tripping or the fall pt with fall with head injury - pt uses walker but uncertain as to why fell - has hx of weakness - uncertain as to loc - no def palpitations pt was admitted at this time for eval and treatment The above per Dr. Laura Patient confirms events as noted above. Denies any chest pain, palpitations, nausea, vomiting or seizure activity prior to falling. After discussing the patient with Dr. Laura the patient has had some recurrent falls in the past which are felt to be due to to mechanical issues. She had a cardiac work-up at [facility] last year including cardiac catheterization that revealed no significant disease per the patient. Previous Holter monitor has been unremarkable as well. Echocardiogram is in progress during my exam with preliminary evaluation showing preserved ejection fraction. Troponins this admission are normal x3. EKG is sinus rhythm with nonspecific ST-T abnormalities which are consistent with prior tracings. [facility] History Medical History: Reports:: Anxiety, Arrhythmia, Depression, Diabetes Mellitus Type 2, Hyperlipidemia, Hypertension, MRSA Denies:: Cancer, Diabetes Mellitus Type 1, Internal Pacemaker, Lung Disease, Seizures *Have you ever received a pneumonia vaccine?: Yes *Have you received a flu vaccine this season?: Yes Other Medical History: Reports: Other Other Surgeries: Yes: Cholecystectomy, Hysterectomy-Total, Other (back I&D). No: Pacemaker Amputation: No Fractures: No - *Social History Smoking Status: Never smoker Alcohol Intake: never Alcohol Intake Frequency:: other Substance Use Type: denies use *Occupational Status:: retired Housing: apartment Household Members: family *Travel in the last 8 weeks: None - Psychiatric History Pschychiatric History:: Reports:: Anxiety, Depression Family Hx:: Cancer Meds Home Medications Medication Instructions Recorded Confirmed Type Digoxin [Digoxin 0.25mg Tablet] 250 mcg PO DAILY 02/01/18 06/06/21 History Metoprolol Tartrate [Lopressor 25 mg PO DAILY 02/01/18 06/06/21 History 25mg tablet] Venlafaxine HCl 50 mg PO BID 02/01/18 06/07/21 History Quetiapine Fumarate [Seroquel 50 50 mg PO BID 04/04/18 06/07/21 History mg Tablets] lisinopril 5 mg tablet 5 mg PO HS tab 07/23/20 06/07/21 History metformin 1,000 mg tablet 1,000 mg PO DAILY tab 04/23/21 06/07/21 History atorvastatin 40 mg tablet 40 mg PO DAILY #90 tab 06/02/21 06/07/21 Rx Spironolactone [Aldacto
--- NOTE | 2021-06-08 08:58 | HMH.PTEV ---
Physical Therapy Evaluation Rehab PT IP Evaluation Start: 06/08/21 06:44 Freq: ONCE Status: Active Protocol: Document 06/08/21 08:56 ARNULFO (Rec: 06/08/21 08:58 ARNULFO [id number]) Subjective/History History History this patient fell at home states she was walking from her restroom to her bedroom tonight when she fell and hit the back of her head. Patient is unsure if she lost consciousness. Denies injury with exception of the laceration, n/v. States that she is unsure of what caused the fall but does not remember tripping or the fall Subjective Subjective Pt reports she will participate in therapy Rehab PT IP Eval Objective Appearance Patient Behavior Appropriate,Cooperative Patient Orientation Person,Place,Time,Situation Difficulty following instructions none Speech Pattern Clear,Appropriate Ambulation Patient Able to Ambulate Yes Ambulation Observation IP General Gait Pattern Observation Shuffling Step Ambulation Distance (feet) 50 Ambulation Assistive Device Rolling Walker Ambulation Ability Supervision/Stand by Balance Ability to Arise Able, uses arms to help Sitting Balance Steady, safe Standing Balance Steady, wide stance Dynamic Sitting Balance Ability Good Dynamic Standing Balance Ability Fair Transfers Bed Transfer Ability Independent Chair Transfer Ability Independent Sit to Stand Bed Transfer Ability Supervision/Stand by Sit to Stand Chair Transfer Ability Supervision/Stand by Rehab PT IP prob,goals,plan Problems Date of Evaluation: 06/08/21 Rehab Potential Rehab Potential Innapropriate for Skilled Therapy Discharge Plan PT Discharge Plan Pt does not require skilled therapy at this time. Pt is functionally safe to return home once medically stable G -code Required Yes Eval Complexity Eval Charge Codes 48449 - Moderate Complexity G Codes PT Current Status Mobility PT Current Status Modifier CI-At least 1% but less than 20% impaired, limited or restricted PT Goal Status Mobility PT Goal Status Modifer CI-At least 1% but less than 2
[2021-06-08 09:04] LABS: Basophils % 0.4 % (0.1-2.0); Eosinophils # 0.1 K/mm3 (0.0-0.4); Eosinophils % 0.7 % (0.1-12.0); Hematocrit 34.1 % (37.0-47.0); Hemoglobin 10.8 g/dL (12.2-16.2); Lymphocytes # 1.4 K/mm3 (0.7-4.5); Lymphocytes % 20.7 % (10-50); Mean Corpuscular HGB Conc 31.6 g/dL (31.8-35.4); Mean Corpuscular Hemoglobin 27.1 pg (27.0-31.2); Mean Corpuscular Volume 85.9 fl (81-99); Mean Platelet Volume 8.4 fl (7.4-10.4); Monocytes # 0.3 K/mm3 (0.1-1.0); Monocytes % 4.7 % (1.7-9.3); Neutrophils # 5.1 K/mm3 (1.8-7.8); Neutrophils % 73.5 % (37.0-80.0); Platelet Count 191 K/mm3 (142-424); Red Blood Count 3.97 M/mm3 (4.20-5.40); Red Cell Distribution Width 13.9 % (11.5-17.5); White Blood Count 6.9 K/mm3 (4.8-10.8)
[2021-06-08 09:06] LABS: Chloride 103 mmol/L (98-107); Potassium 3.9 mmoL/L (3.5-5.1); Sodium 138 mmol/L (136-145)
[2021-06-08 09:09] LABS: Anion Gap 8.9 mEq/L (5-15); Blood Urea Nitrogen 16 mg/dl (7-17); Carbon Dioxide 30 mmol/L (22.0-30.0); Creatinine Clearance Estimated 49 mL/min (50-200); Estimated Glomerular Filt Rate 121 ml/min (>60); GFR (African American) 146 ML/MIN (>60)
[2021-06-08 09:10] LABS: Calcium 8.3 mg/dl (8.4-10.2); Glucose 174 mg/dl (74-100)
--- NOTE | 2021-06-08 09:49 | HMH.OTEV ---
OT Inpatient Evaluation Rehab OT IP Evaluation Start: 06/08/21 06:45 Freq: ONCE Status: Complete Protocol: Document 06/08/21 09:33 KEYONNA (Rec: 06/08/21 09:49 [facility] [id number]) Rehab OT IP Assessment Subjective History Pt oriented x 3 on arrival. Pt agreeable to engage in therapy evaluation. Pt was admitted via ED on 06/06/21 due to a fall at home. The following information was copied from PCP's history and physical report: this patient fell at home states she was walking from her restroom to her bedroom tonight when she fell and hit the back of her head. Patient is unsure if she lost consciousness. Denies injury with exception of the laceration, n/v. States that she is unsure of what caused the fall but does not remember tripping or the fall pt with fall with head injury - pt uses walker but uncertain as to why fell - has hx of weakness - uncertain as to loc - no def palpitations pt was admitted at this time for eval and treatment Pt has a past medical history of: Anxiety, Arrhythmia, Depression, Diabetes Mellitus Type 2, Hyperlipidemia, Hypertension, MRSA Pt reports prior to her fall she lived at home alone. Pt claims she was independent with all ADLs such a dressing, feeding, and bathing. Pt does have AE throughout her house to assist with independence such as grap bars , shower chair/bench, and BSC. Pt does use a walker during ambulation. Pt clais she is independent with cooking, cleaning, and laundry. She does not drive so she relys on
--- NOTE | 2021-06-08 09:59 | SW/DCPLANNER ---
Addendum entered by [facility] 06/08/21 15:39: [facility] has confirmed that services will begin at the end of the week for this patient. [facility] stated they will make a follow up phone call to patient tomorrow. Addendum entered by [facility] 06/08/21 15:25: [facility] is not in network with patients insurance. Order and information has been faxed to [facility] with [employer]. Addendum entered by [facility] 06/08/21 15:07: Tuyet genao/ [facility] stated that she is not in network with this patients insurance. Patient information has now been faxed to [facility] home health. [facility] ride has been completed: ID#[id number]. Addendum entered by [facility] 06/08/21 14:13: Patient information/order has been faxed to [facility] for [facility] services. Patient will discharge home today: I will arrange [facility] once patient is ready to discharge. Addendum entered by [facility] 06/08/21 12:40: [facility] w/ [facility] has stated that she is not in network with this insurance and can not accept. Britt [facility]/ [facility] has stated that she can not accept patient. I spoke with patient regarding situation and she has stated that she prefers to discharge home with home health services ([facility]). Patient stated that she transports via [facility]. I have informed Bhupinder of situation. Addendum entered by [facility] 06/08/21 12:03: Kavitha genao/ [facility] was willing to began prior auth for this patient: patient has refused placement at [facility]. I have informed Kavitha genao/ [facility] to scrap referral. During rounds this AM patient was not interested in returning to [facility] however this afternoon she has expressed an interest. I called and spoke w/ Sada Nuñez at [facility]: not able to accept this patient back for admission today due to being out of the office. At this time Britt genao/ [facility] stated that she is interested in this patient and is currently reviewing information. Britt does understand that this patient is currently ready for discharge and will follow up with me once patient information is reviewed. Addendum entered by [facility] 06/08/21 11:02: Patient information has also been faxed to Kavitha genao/ [facility]. Original Note: This patient currently resides at home in [place]. Patient stated that about three months ago she was admitted to [facility] in [place] for rehab and prior to this facility patient stated that she was living at [facility]. Patient stated that due to falls at home she would prefer to discharge to a skilled facility in [place] for SNF level of care (if she meets criteria) and may possibly be interested in [facility] care. Patient information has been faxed to [facility] and [facility] at this time. I will follow up with both facilities this AM: patient is currently ready for discharge.
[2021-06-08 11:45] LABS: POC Glucose,Bedside 112 (70-110)
[2021-06-08 12:00] VITALS: BP 128/86; PULSE 60; PULSE 70; RESP 16; TEMP 36.8; O2SAT 100
--- NOTE | 2021-06-08 13:08 | HMH.DCSUM ---
General - General Admission date:: 06/07/21 Discharge date: 06/08/21 HPI HPI: this patient fell at home states she was walking from her restroom to her bedroom tonight when she fell and hit the back of her head. Patient is unsure if she lost consciousness. Denies injury with exception of the laceration, n/v. States that she is unsure of what caused the fall but does not remember tripping or the fall pt with fall with head injury - pt uses walker but uncertain as to why fell - has hx of weakness - uncertain as to loc - no def palpitations pt was admitted at this time for eval and treatment Hospital Course Hospital Course: Abnormal Lab Results 06/07/21 11:10: POC Glucose 132 H 06/07/21 16:18: POC Glucose 154 H 06/08/21 08:46: RBC 3.97 L, Hgb 10.8 L, Hct 34.1 L, MCHC 31.6 L 06/08/21 08:46: Creatinine 0.50 L D, Glucose 174 H, Calcium 8.3 L 06/08/21 11:35: POC Glucose 112 H cardiology consult:Assessment and Plan for all problems:: 1. Falls with possible syncope. Normal Troponins, no acute changes on EKG with recent holter without significant arrhythmias. Will get recent cardiac cath report from [facility]. If results normal, then continue conservative approach. Consider placement of loop recorder to monitor for arrhythmias. 2. Bilateral lower extremity edema likely secondary to venous stasis 3. Hypertension, controlled 4. Diabetes mellitus type 2, per PCP 5. Chronic mild anemia, hemoglobin in the 10-11 range 6. LEMON with elevated LFTs Assessment and Plan (1) Bilateral lower extremity edema-likely secondary to venous stasis (2) Concussion without loss of consciousness- monitor (3) Fall-home health with pt/ot. pt was accepted to [facility] but she declined. (4) LEMON (nonalcoholic steatohepatitis)-follow up (5) Scalp abrasion- keep area clean (6) Syncopal episodes-Falls with possible syncope. Normal Troponins, no acute changes on EKG with recent holter without significant arrhythmias. Will get recent cardiac cath report from [facility] in [facility]. If results normal, then continue conservative approach. Consider placement of loop recorder to monitor for arrhythmias. (7) Type 2 diabetes mellitus with hyperglycemia, without long-term current use of insulin- monitor close and diet restrictions Will dc home with PT/OT and home health for fall risk, pt refusing to go to [facility] for rehab. Objective Vital signs: Temp Pulse Resp BP Pulse Ox 98.2 F 60 16 128/86 100 06/08/21 12:00 06/08/21 12:00 06/08/21 12:00 06/08/21 12:00 06/08/21 12:00 no acute distress - *Routine HEENT Exam Head: Present: normocephalic Eye: Present: PERRL ENT: Present: mucous membranes moist - *Routine Neck Exam Present: supple - *Routine Respiratory Exam Present: CTA bilaterally - *Routine Cardiovascular Exam Present: RRR - *Routine Abdominal Exam Present: soft, normoactive bowel sounds. Absent: tenderness - *Routine Extremities Exam Absent: cyanosis, clubbing, edema - *Routine Skin Exam Present: warm. Absent: rash Comments: scalp abrasion - *Routine Neurological Exam Present: alert, oriented X3 Results Labs on day of discharge: Labs from last 24 hours 06/08/21 06/08/21 06/08/21 11:35 08:46 08:46 WBC 6.9 RBC 3.97 L Hgb 10.8 L Hct 34.1 L MCV 85.9 MCH 27.1 MCHC 31.6 L RDW 13.9 Plt Count 191 MPV 8.4 Neut % (Auto) 73.5 Lymph % (Auto) 20.7 Hall % (Auto) 4.7 Eos % (Auto) 0.7 Baso % (Auto) 0.4 Neut # (Auto) 5.1 Lymph # (Auto) 1.4 Hall # (Auto) 0.3 Eos # (Auto) 0.1 Baso # (Auto) 0.0 Sodium 138 Potassium 3.9 Chloride 103 Carbon Dioxide 30 Anion Gap 8.9 BUN 16 Creatinine 0.50 L D Estimated Creat Clear 49 Estimated GFR 121 Est GFR ( Amer) 146 D Glucose 174 H POC Glu
--- NOTE | 2021-06-08 14:12 | HMH.PHAINT ---
Discharge counseling complete. Informed pt that there were no changes to her medication regimen. Pt understood and had no questions or concerns.
[2021-06-09 16:24] LABS: POC Glucose,Bedside 131 (70-110)
[2021-06-09 16:24] LABS: POC Glucose,Bedside 103 (70-110)
== END 2021-06-08 15:40 | disposition home health service (06) ==
LOC: ER 23:55 → 2ND 06-07 00:09
PROVIDERS: Nurse Practitioner Family; Admitting Provider Emergency Medicine; Emergency Provider Emergency Medicine; PCP Emergency Medicine; Visit Provider Emergency Medicine
DX: R55 Syncope and collapse (principal); R29.6 Repeated falls; E11.65 Type 2 diabetes mellitus with hyperglycemia; I10 Essential (primary) hypertension; Z79.84 Long term (current) use of oral hypoglycemic drugs; Z79.899 Other long term (current) drug therapy; S06.0X0A Concussion without loss of consciousness, initial encounter; K75.81 Nonalcoholic steatohepatitis (NASH); R60.0 Localized edema; D64.9 Anemia, unspecified; Z88.8 Allergy status to other drugs, medicaments and biological substances; W01.0XXA Fall on same level from slipping, tripping and stumbling without subsequent striking against object, initial encounter; Z91.81 History of falling; Y92.019 Unspecified place in single-family (private) house as the place of occurrence of the external cause; Z20.822 Contact with and (suspected) exposure to COVID-19
CPT/HCPCS: G0378; 36415; 70450; 71045; 72125; 72170; 80048; 80053; 80162; 81001; 82962; 83735; 84145; 84484; 85025; 86140; 93005; 93306; 97162; 97166; 99284; C9803; U0003; U0005

== ENCOUNTER → 2021-06-22 10:08 | Outpatient (CLI) | payer MEDICARE, SELFPAY | PROVIDERS: PCP Emergency Medicine; Visit Provider Nurse Practitioner Family | DX: R55 Syncope and collapse ==

== ENCOUNTER 2021-06-22 19:22 | Emergency (ER) | payer MEDICARE, OTHER, SELFPAY ==
[2021-06-22] VITALS (9 sets, daily range): BP systolic 160–177; BP diastolic 61–89; PULSE 62–71; RESP 13–18; TEMP 36.6; O2SAT 97–100; BMI 22.2
--- NOTE | 2021-06-22 19:22 | ECG_ITS ---
APPROVED REPORT Exam: Resting ECG HR:69 bpm ECG Measurements Heart Rate 69 AXES AR 137 P 63 QRSd 93 QRS 58 QT 374 T 56 QTc 394 Conclusion SINUS RHYTHM WITH SINUS ARRHYTHMIA ST DEVIATION AND MODERATE T-WAVE ABNORMALITY, unchanged from tracing May, UNCONFIRMED REPORT Electronically signed by : Jean Kwan MD 06/24/2021 17:52:07
--- NOTE | 2021-06-22 19:24 | XR_ITS ---
PROCEDURE INFORMATION: Exam: XR Chest Exam date and time: 06/22/2021 7:24 PM Age: 71 years old Clinical indication: Other: Dizziness; Additional info: Dizziness and staff infection on hip TECHNIQUE: Imaging protocol: XR of the chest. Views: 2 views. COMPARISON: CR XR CHEST PORTABLE 06/06/2021 9:54 PM FINDINGS: Lungs: No regions of consolidation. Pleural spaces: Unremarkable. No pleural effusion. No pneumothorax. Heart/Mediastinum: The heart is normal size. Bones/joints: Spondylitic changes demonstrated posteriorly in the thoracic spine. IMPRESSION: No evidence of acute cardiopulmonary disease.
--- NOTE | 2021-06-22 19:25 | XR_ITS ---
PROCEDURE INFORMATION: Exam: XR Right Hip Exam date and time: 06/22/2021 7:25 PM Age: 71 years old Clinical indication: Hip pain; Right hip; Additional info: Pain/ right hip staff infection place diagnosed previously TECHNIQUE: Imaging protocol: XR Right hip. Views: 2 or 3 views hip with pelvis when performed. COMPARISON: CR XR PELVIS 1-2V 06/06/2021 9:57 PM FINDINGS: Bones/joints: Mild-moderate narrowing of both hip joints is demonstrated. Degenerative changes are again demonstrated involving the pubic symphysis. These findings are unchanged. There is no evidence of acute osseous injury. Soft tissues: Unremarkable. IMPRESSION: 1. 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 Findings accounting for slight differences in technique not significantly changed. 2. No evidence of acute osseous injury.
[2021-06-22 19:36] LABS: Basophils # 0.2 K/mm3 (0-0.2); Basophils % 1.9 % (0.1-2.0); Eosinophils % 0.5 % (0.1-12.0); Hematocrit 36.1 % (37.0-47.0); Hemoglobin 11.1 g/dL (12.2-16.2); Lymphocytes # 1.4 K/mm3 (0.7-4.5); Lymphocytes % 16.6 % (10-50); Mean Corpuscular HGB Conc 30.8 g/dL (31.8-35.4); Mean Corpuscular Volume 87.4 fl (81-99); Mean Platelet Volume 9.8 fl (7.4-10.4); Monocytes # 0.4 K/mm3 (0.1-1.0); Monocytes % 4.9 % (1.7-9.3); Neutrophils # 6.2 K/mm3 (1.8-7.8); Neutrophils % 76.1 % (37.0-80.0); Platelet Count 205 K/mm3 (142-424); Red Blood Count 4.14 M/mm3 (4.20-5.40); Red Cell Distribution Width 15.4 % (11.5-17.5); White Blood Count 8.1 K/mm3 (4.8-10.8)
[2021-06-22 19:54] LABS: Alanine Aminotransferase 126 U/L (12-78); Albumin Level 4.3 g/dl (3.5-5.0); Alkaline Phosphatase 166 U/L (38-126); Aspartate Amino Transferase 82 U/L (14-36); Bilirubin,Total 0.6 mg/dl (0.2-1.3); Blood Urea Nitrogen 20 mg/dl (7-17); Calcium 9.2 mg/dl (8.4-10.2); Carbon Dioxide 32 mmol/L (22.0-30.0); Chloride 103 mmol/L (98-107); Creatinine Clearance Estimated 50 mL/min (50-200); Estimated Glomerular Filt Rate 121 ml/min (>60); GFR (African American) 146 ML/MIN (>60); Globulin 4.3 g/dL (1.3-3.2); Glucose 150 mg/dl (74-100); Sodium 141 mmol/L (136-145); Total Protein,Serum 8.6 g/dl (6.3-8.2)
--- NOTE | 2021-06-22 19:56 | PC.NURSE ---
pt assisted to bathroom. voided 600 ml clear yellow urine. urine specimen obtained.
[2021-06-22 19:59] LABS: C-Reactive Protein 19.1 mg/L (0-4)
[2021-06-22 20:00] LABS: Microscopic, Urine URINE MICROSCOPIC (MICROSCOPIC)
--- NOTE | 2021-06-22 20:05 | HMH.EDWEAK ---
ED Disposition Clinical Impression: Dizziness Disposition: Home, Self-Care Condition on Discharge: Good Instructions: DI for Muscle Weakness Additional Instructions: see pcp for follow up Referrals: Shaheen Laura MD [Primary Care Provider] - - Critical Care Critical Care Time: No Attestation: On 06/22/21, the high probability of a clinically significant, sudden or life threatening deterioration of the following system(s) required my full and direct attention, intervention and personal management. The time I documented below is in addition to time spent performing reported procedures but includes the following listed in this critical care notation. Medical Decision Making - Medical Records Medical records reviewed: Yes: I reviewed the patient's medical records. - Andrzej Inquiry Pt receiving controlled substance: No Vital Signs: 06/22/21 19:13 06/22/21 20:00 06/22/21 20:14 Temperature 97.8 F Temperature Source Oral Pulse Rate 63 Pulse Rate [Orthostatic Lying] 64 Pulse Rate [Orthostatic Sitting] 62 Pulse Rate [Orthostatic Standing] 70 Pulse Rate [Right] 71 Respiratory Rate 18 16 Blood Pressure 168/66 H Blood Pressure [Orthostatic Lying] 166/70 H Blood Pressure [Orthostatic Sitting] 172/73 H Blood Pressure [Orthostatic Standing] 163/61 H Blood Pressure [Right Arm] 177/63 H Blood Pressure Mean 100 Blood Pressure Mean [Right Arm] 101 02 Sat by Pulse Oximetry 97 99 Oxygen Delivery Method 06/22/21 20:30 06/22/21 21:00 06/22/21 22:00 Temperature Temperature Source Pulse Rate 67 68 67 Pulse Rate [Orthostatic Lying] Pulse Rate [Orthostatic Sitting] Pulse Rate [Orthostatic Standing] Pulse Rate [Right] Respiratory Rate 16 16 16 Blood Pressure 160/68 H 167/69 H 162/66 H Blood Pressure [Orthostatic Lying] Blood Pressure [Orthostatic Sitting] Blood Pressure [Orthostatic Standing] Blood Pressure [Right Arm] Blood Pressure Mean 86 84 103 Blood Pressure Mean [Right Arm] 02 Sat by Pulse Oximetry 97 98 100 Oxygen Delivery Method 06/22/21 22:16 06/22/21 22:31 06/22/21 23:00 Temperature Temperature Source Pulse Rate 64 64 65 Pulse Rate [Orthostatic Lying] Pulse Rate [Orthostatic Sitting] Pulse Rate [Orthostatic Standing] Pulse Rate [Right] Respiratory Rate 14 13 13 Blood Pressure 164/83 H 165/89 H 171/72 H Blood Pressure [Orthostatic Lying] Blood Pressure [Orthostatic Sitting] Blood Pressure [Orthostatic Standing] Blood Pressure [Right Arm] Blood Pressure Mean Blood Pressure Mean [Right Arm] 02 Sat by Pulse Oximetry 98 100 100 Oxygen Delivery Method 06/23/21 00:00 06/23/21 00:30 Temperature Temperature Source Pulse Rate 59 L 62 Pulse Rate [Orthostatic Lying] Pulse Rate [Orthostatic Sitting] Pulse Rate [Orthostatic Standing] Pulse Rate [Right] Respiratory Rate 14 16 Blood Pressure 174/63 H 158/66 H Blood Pressure [Orthostatic Lying] Blood Pressure [Orthostatic Sitting] Blood Pressure [Orthostatic Standing] Blood Pressure [Right Arm] Blood Pressure Mean Blood Pressure Mean [Right Arm] 02 Sat by Pulse Oximetry 98 98 Oxygen Delivery Method Room Air Room Air - Lab Data Lab results reviewed: Yes: I reviewed the patient's lab results. Lab Results 06/22/21 19:29: WBC 8.1, RBC 4.14 L, Hgb 11.1 L, Hct 36.1 L, MCV 87.4, MCH 27.0, MCHC 30.8 L, RDW 15.4, Plt Count 205, MPV 9.8, Neut % (Auto) 76.1, Lymph % (Auto) 16.6, [place] % (Auto) 4.9, Eos % (Auto) 0.5, Baso % (Auto) 1.9, Neut # (Auto) 6.2, Lymph # (Auto) 1.4, [place] # (Auto) 0.4, Eos # (Auto) 0.0, Baso # (Auto) 0.2, ESR 94 H 06/22/21 19:29: Sodium 141, Potassium 4.0, Chloride 103, Carbon Dioxide 32 H, Anion Gap 10.0, BUN 20 H, Creatinine 0.50 L, Estimated Creat Clear 50, Estimated GFR 121, Est GFR ( Amer) 146, Glucose 150 H, Calcium 9.2, Total Bilirubin 0.6, AST 82 H, ALT 126 H, Alkaline Phosphatase 166 H, Tro
[2021-06-22 20:07] LABS: Appearance,Urine CLEAR (Clear); Bilirubin,Urine Negative (Negative); Blood, Urine Negative (Negative); Color,Urine YELLOW (Yellow); Glucose,Urine (UA) Negative (Negative); Ketones,Urine Negative (Negative); Leukocyte Esterase,Urine Negative (Negative); Nitrate,Urine Negative (Negative); Protein,Urine Negative (Negative); Specific Gravity, Urine 1.015 (1.005-1.030)
[2021-06-22 20:09] LABS: Troponin I < 0.01 ng/ml (0.00-0.034)
[2021-06-22 20:21] LABS: Procalcitonin < 0.030 ng/mL (0.0-2.0)
[2021-06-22 20:54] LABS: Bacteria,Urine 1+ /lpf; WBC,Urine Occasional #/hpf (0-3)
[2021-06-22 21:02] LABS: Erythrocyte Sedimentation Rate 94 mm/hr (0-30)
--- NOTE | 2021-06-22 22:20 | PC.NURSE ---
pt reports pain is now at 0/10 and is resting comfortably
[2021-06-22 22:59] LABS: Troponin I < 0.01 ng/ml (0.00-0.034)
--- NOTE | 2021-06-22 23:42 | PC.NURSE ---
Pt assisted to the bathroom at this time. Beds switched out to a more comfortable bed. No other needs at this time.
[2021-06-23] VITALS (12 sets, daily range): BP systolic 144–185; BP diastolic 60–80; PULSE 59–74; RESP 14–20; TEMP 36.6; O2SAT 97–99
--- NOTE | 2021-06-23 00:55 | PC.NURSE ---
Pt asleep in bed. no needs at this time.
--- NOTE | 2021-06-23 02:00 | PC.NURSE ---
pt voiced no c/o @ this time. call light within reach
--- NOTE | 2021-06-23 02:55 | PC.NURSE ---
pt resting quietly. call light within reach
--- NOTE | 2021-06-23 03:17 | PC.NURSE ---
pt assisted to the bathroom @ this time. pt returned to bed with call light within reach
--- NOTE | 2021-06-23 05:28 | PC.NURSE ---
Pt ambulated to bathroom at this time with assistance and helped back to bed no other needs at this time.
--- NOTE | 2021-06-23 06:25 | PC.NURSE ---
Pt asleep in bed. No needs at this time
--- NOTE | 2021-06-23 07:05 | PC.NURSE ---
Ordered a breakfast tray for pt
--- NOTE | 2021-06-23 07:32 | PC.NURSE ---
pt sitting up in bed eating breakfast at this time.
--- NOTE | 2021-06-23 07:47 | PC.NURSE ---
asked pt who was coming to pick her up. pt states when she was ready for discharge she would [facility]. informed pt she was ready for discharge so pt states she would call for transport.
--- NOTE | 2021-06-23 08:53 | PC.NURSE ---
pt asked staff to call aaron (next of kin) for nut picker. states she will be on her way
--- NOTE | 2021-06-23 08:56 | CARE MANAGER ---
Called [facility] and scheduled sweet pickled fruit maker with ID #[id number]. Called ER and let them know they would sweet pickled fruit maker and they stated patient had obtained a ride from friend. Called [facility] and canceled. EPHRAIM Lara
--- NOTE | 2021-06-23 09:14 | PC.NURSE ---
pt sitting up in wheelchair waiting on her ride. States no needs at this time.
--- NOTE | 2021-06-23 10:17 | PC.NURSE ---
Pt to bathroom via W/C at this time.
--- NOTE | 2021-06-23 10:40 | PC.NURSE ---
Pt left to go home
== END 2021-06-23 10:41 | disposition home or self-care (01) ==
PROVIDERS: Emergency Provider Emergency Medicine; PCP Emergency Medicine
DX: R42 Dizziness and giddiness (principal); R53.1 Weakness; M25.551 Pain in right hip; I10 Essential (primary) hypertension; I49.9 Cardiac arrhythmia, unspecified; E78.5 Hyperlipidemia, unspecified; F32.A Depression, unspecified; F41.9 Anxiety disorder, unspecified; Z86.14 Personal history of Methicillin resistant Staphylococcus aureus infection; Z79.1 Long term (current) use of non-steroidal anti-inflammatories (NSAID); Z79.84 Long term (current) use of oral hypoglycemic drugs; Z79.899 Other long term (current) drug therapy; Z88.6 Allergy status to analgesic agent
CPT/HCPCS: 71046; 73502; 80053; 81001; 84145; 84484; 85025; 85651; 86140; 93005; 96361; 96365; 96374; 96375; 99284

== ENCOUNTER → 2021-08-18 11:39 | Outpatient (CLI) | payer MEDICARE, OTHER, SELFPAY ==
[2021-08-18 12:51] LABS: Chloride 101 mmol/L (98-107); Sodium 140 mmol/L (136-145)
[2021-08-18 12:54] LABS: Blood Urea Nitrogen 29 mg/dl (7-17); Carbon Dioxide 33 mmol/L (22.0-30.0); Estimated Glomerular Filt Rate 98 ml/min (>60); GFR (African American) 119 ML/MIN (>60)
[2021-08-18 12:55] LABS: Calcium 9.9 mg/dl (8.4-10.2); Glucose 99 mg/dl (74-100)
== END ==
PROVIDERS: PCP Emergency Medicine; Visit Provider Urology
DX: R32 Unspecified urinary incontinence (principal)
CPT/HCPCS: 36415; 80048

== ENCOUNTER 2021-08-19 14:54 | Emergency (ER) | payer MEDICARE, OTHER, SELFPAY ==
[2021-08-19 14:55] VITALS: BP 168/59; PULSE 78; RESP 16; TEMP 36.8; O2SAT 99; BMI 20.9
--- NOTE | 2021-08-19 15:54 | HMH.EDGENADL ---
ED Disposition Clinical Impression: Contusion of right hip Qualifiers: Encounter type: initial encounter Qualified Code(s): S70.01XA - Contusion of right hip, initial encounter Disposition: Home, Self-Care Condition on Discharge: Good Instructions: DI for Hip Pain Additional Instructions: Advil as needed for pain. Follow-up with your primary care provider next week if not improved. Referrals: Shaheen Laura MD [Primary Care Provider] - - Critical Care Critical Care Time: No Attestation: On 08/19/21, the high probability of a clinically significant, sudden or life threatening deterioration of the following system(s) required my full and direct attention, intervention and personal management. The time I documented below is in addition to time spent performing reported procedures but includes the following listed in this critical care notation. Medical Decision Making - Andrzej Inquiry Pt receiving controlled substance: No Vital Signs: 08/19/21 14:55 08/19/21 17:00 Temperature 98.2 F Temperature Source Oral Pulse Rate 77 Pulse Rate [Right Radial] 78 Respiratory Rate 16 Blood Pressure 160/73 H Blood Pressure [Right Arm] 168/59 H Blood Pressure Mean [Right Arm] 95 Blood Pressure Source [Right Arm] Automatic Cuff Blood Pressure Position [Right Arm] Sitting 02 Sat by Pulse Oximetry 99 100 Oxygen Delivery Method Room Air - Radiology Data #1 Image(s): Hip Image Reviewed: Yes I reviewed the patient's radiology image, Yes I have reviewed radiologist's interpretation Procedure(s): XR hip RT 2-3V w/pelvis Accession Number(s): [id number] cc: Shaheen Laura MD; Gabriel Delgado MD~ FINAL REPORT CLINICAL HISTORY: fall COMPARISON: 06/22/2021 FINDINGS: RIGHT HIP Three views were obtained. There is no acute fracture or dislocation. There are mild degenerative changes of both hips. No soft tissue abnormality is identified. IMPRESSION: No acute process. If symptoms persist, recommend CT or MRI to further evaluate. Reviewed, Interpreted and Dictated by Gabriel Delgado III, MD Transcribed by Guera Nguyen Authenticated by Gabriel Delgado III, MD on 08/19/2021 04:54:59 PM [facility] General Adult HPI - General Stated complaint: R-hip pain Time Seen by Provider: 08/19/21 15:54 - History of Present Illness HPI narrative: States she fell in her yard on Tuesday injuring her right hip. She has pain which she locates is being laterally over the greater trochanter ever since then. The pain got worse today so she decided to come in and get it checked out. She is able to ambulate, she uses a walker at baseline. She tried to Salonpas pads on it without relief. Denies any other injuries. - Related Data Home Medications Medication Instructions Recorded Confirmed Venlafaxine HCl 50 mg PO BID 02/01/18 08/18/21 lisinopril 5 mg tablet 5 mg PO HS tab 07/23/20 08/18/21 metformin 1,000 mg tablet 1,000 mg PO DAILY tab 04/23/21 08/18/21 alpha lipoic acid 250 mg capsule 250 mg PO ONCE cap 06/22/21 08/18/21 mirabegron 25 mg tablet,extended 25 mg PO DAILY 07/01/21 08/18/21 release 24 hr oxybutynin chloride 5 mg tablet 5 mg PO BID tab 07/27/21 08/18/21 Previous Rx's Medication Instructions Recorded quetiapine 25 mg tablet 25 mg PO HS #90 tab 07/09/21 Allergies Allergy/AdvReac Type Severity Reaction Status Date / Time aspirin Allergy Verified 08/18/21 11:02 acetaminophen [ACETAMINOPHEN] AdvReac d/t fatty Verified 08/18/21 11:02 liver [facility] History - Hepatitis A Screen Attestation statement:: This patient has been screened for Hepatitis A risk factors. I have reviewed the patient's past medical history: Yes Medical History: Reports:: Anxiety, Arrhythmia, Depression, Diabetes Mellitus Type 2, Hyperlipidemia, Hypertension, Internal Pacemaker, MRSA, Urinary Tract Infection Denies:: Cancer, Diabetes Mellitus Type 1, Lung Disease, Seizure
--- NOTE | 2021-08-19 15:59 | XR_ITS ---
FINAL REPORT CLINICAL HISTORY: fall COMPARISON: 06/22/2021 FINDINGS: RIGHT HIP Three views were obtained. There is no acute fracture or dislocation. There are mild degenerative changes of both hips. No soft tissue abnormality is identified. IMPRESSION: No acute process. If symptoms persist, recommend CT or MRI to further evaluate. Reviewed, Interpreted and Dictated by Gabriel Delgado III, MD Transcribed by Guera Nguyen Authenticated by Gabriel Delgado III, MD on 08/19/2021 04:54:59 PM [facility]
--- NOTE | 2021-08-19 16:08 | PC.NURSE ---
pt to radiology
[2021-08-19 16:09] VITALS: BMI 20.9
[2021-08-19 17:00] VITALS: BP 160/73; PULSE 77; O2SAT 100
--- NOTE | 2021-08-19 17:03 | PC.NURSE ---
pt reports no needs at this time, will continue to monitor
[2021-08-19 18:05] VITALS: BP 151/65; PULSE 72; RESP 20; TEMP 36.7; O2SAT 100
== END 2021-08-19 18:05 | disposition home or self-care (01) ==
PROVIDERS: Emergency Provider Emergency Medicine; PCP Emergency Medicine
DX: S70.01XA Contusion of right hip, initial encounter (principal); W19.XXXA Unspecified fall, initial encounter; E11.9 Type 2 diabetes mellitus without complications; E78.5 Hyperlipidemia, unspecified; I10 Essential (primary) hypertension; I49.9 Cardiac arrhythmia, unspecified; F41.9 Anxiety disorder, unspecified; F32.A Depression, unspecified; Z95.0 Presence of cardiac pacemaker; Z86.14 Personal history of Methicillin resistant Staphylococcus aureus infection; Z87.440 Personal history of urinary (tract) infections; Z79.82 Long term (current) use of aspirin
CPT/HCPCS: 73502; 99283

== ENCOUNTER 2021-09-07 23:25 | Inpatient (IN) | payer MEDICARE, OTHER, SELFPAY ==
[2021-09-07 23:24] VITALS: BP 155/80; PULSE 81; RESP 16; TEMP 36.7; O2SAT 99; BMI 21.7
--- NOTE | 2021-09-07 23:27 | ECG_ITS ---
APPROVED REPORT Exam: Resting ECG HR:85 bpm ECG Measurements Heart Rate 85 AXES DE 137 P 71 QRSd 86 QRS 79 QT 365 T 82 QTc 407 Conclusion SINUS RHYTHM POSSIBLE LEFT ATRIAL ENLARGEMENT [-0.1mV P-WAVE IN V1/V2] POSSIBLE RIGHT VENTRICULAR CONDUCTION DELAY [RSR (QR) IN V1/V2] MODERATE ST DEPRESSION [0.05+ mV ST DEPRESSION] ABNORMAL ECG UNCONFIRMED REPORT Electronically signed by : Jean Kwan MD 09/08/2021 21:20:37
[2021-09-07 23:35] LABS: POC Glucose,Bedside 149 (70-110)
[2021-09-07 23:37] LABS: Microscopic, Urine URINE MICROSCOPIC (MICROSCOPIC)
[2021-09-07 23:41] VITALS: BMI 21.7
--- NOTE | 2021-09-07 23:41 | CT_ITS ---
PROCEDURE INFORMATION: Exam: CT Head Without Contrast Exam date and time: 09/07/2021 11:50 PM Age: 71 years old Clinical indication: Injury or trauma; Fall; Blunt trauma (contusions or hematomas); Consciousness not specified TECHNIQUE: Imaging protocol: Computed tomography of the head without contrast. Radiation optimization: All CT scans at this facility use at least one of these dose optimization techniques: automated exposure control; mA and/or kV adjustment per patient size (includes targeted exams where dose is matched to clinical indication); or iterative reconstruction. COMPARISON: CT HEAD/BRAIN WO CON 06/06/2021 10:03 PM FINDINGS: Brain: Intracranial vascular calcification. Decreased attenuation of the supratentorial white matter is likely secondary to chronic microvascular ischemia. No acute intracranial hemorrhage. Chronic lacunar infarct at the right basal ganglia. Cerebral ventricles: Ventricular and subarachnoid spaces are age appropriate. Paranasal sinuses: Visualized sinuses are unremarkable. No fluid levels. Mastoid air cells: Visualized mastoid air cells are well aerated. Bones/joints: Hyperostosis frontalis interna. Soft tissues: Unremarkable. IMPRESSION: No acute intracranial abnormality.
--- NOTE | 2021-09-07 23:41 | CT_ITS ---
PROCEDURE INFORMATION: Exam: CT Cervical Spine Without Contrast Exam date and time: 09/07/2021 11:50 PM Age: 71 years old Clinical indication: Injury or trauma; Fall; Blunt trauma TECHNIQUE: Imaging protocol: Computed tomography images of the cervical spine without contrast. Radiation optimization: All CT scans at this facility use at least one of these dose optimization techniques: automated exposure control; mA and/or kV adjustment per patient size (includes targeted exams where dose is matched to clinical indication); or iterative reconstruction. COMPARISON: CT CERVICAL SPINE WO CON 06/06/2021 10:07 PM FINDINGS: Bones/joints: Mild levoconvex curvature. Vertebral body height and AP alignment is preserved. [id number] degenerative change about the dens. Moderate prevertebral osteophytosis. There are bilateral facet joint degenerative changes. No acute cervical spine fracture. Discs/Spinal canal/Neural foramina: Central canal stenosis greatest at C5-C6, at least moderate. Multilevel cervical foraminal stenoses. Lungs: Scarring at the lung apices. Pleural spaces: No visible pneumothorax. Thyroid: Heterogeneous thyroid gland. Soft tissues: Unremarkable. IMPRESSION: No acute cervical spine fracture.
--- NOTE | 2021-09-07 23:51 | HMH.EDFALL ---
ED Disposition Clinical Impression: Type 2 diabetes mellitus with hyperglycemia, without long-term current use of insulin, LEMON (nonalcoholic steatohepatitis) Hip fracture Qualifiers: Encounter type: initial encounter Fracture type: closed Laterality: left Qualified Code(s): S72.002A - Fracture of unspecified part of neck of left femur, initial encounter for closed fracture Disposition: Admitted As Inpatient Condition on Discharge: Good - Critical Care Critical Care Time: No Attestation: On 09/07/21, the high probability of a clinically significant, sudden or life threatening deterioration of the following system(s) required my full and direct attention, intervention and personal management. The time I documented below is in addition to time spent performing reported procedures but includes the following listed in this critical care notation. Medical Decision Making - Medical Records Medical records reviewed: Yes: I reviewed the patient's medical records. - Andrzej Inquiry Pt receiving controlled substance: No Vital Signs: 09/07/21 23:24 Temperature 98.1 F Temperature Source Oral Pulse Rate [Right] 81 Respiratory Rate 16 Blood Pressure [Right Arm] 155/80 H Blood Pressure Mean [Right Arm] 105 02 Sat by Pulse Oximetry 99 - Lab Data Lab results reviewed: Yes: I reviewed the patient's lab results. Lab Results 09/07/21 23:26: POC Glucose 149 H 09/07/21 23:32: Urine Color Yellow, Urine Appearance Cloudy, Urine pH 7.5, Ur Specific [place] 1.020, Urine Protein Negative, Urine Glucose (UA) Negative, Urine Ketones Negative, Urine Blood Trace-i, Urine Nitrate Negative, Urine Bilirubin Negative, Urine Urobilinogen 0.2, Ur Leukocyte Esterase Negative, Urine RBC 3-5, Urine WBC Occasional, Amorphous Sediment 1+, Urine Bacteria Trace 09/08/21 00:24: WBC 10.3, RBC 4.60, Hgb 12.1 L, Hct 37.8, MCV 82.2, MCH 26.4 L, MCHC 32.1, RDW 16.3, Plt Count 239, MPV 9.1, Neut % (Auto) 84.7 H, Lymph % (Auto) 11.1, [place] % (Auto) 3.1, Eos % (Auto) 0.4, Baso % (Auto) 0.8, Neut # (Auto) 8.7 H, Lymph # (Auto) 1.2, [place] # (Auto) 0.3, Eos # (Auto) 0.0, Baso # (Auto) 0.1 09/08/21 00:24: Sodium 137, Potassium 4.2, Chloride 101, Carbon Dioxide 29, Anion Gap 11.2, BUN 21 H, Creatinine 0.40 L, Estimated Creat Clear 48, Estimated GFR 156, Est GFR ( Amer) 189, Glucose 174 H, Calcium 9.7, Total Bilirubin 0.5, AST 71 H, ALT 77, Alkaline Phosphatase 252 H, Total Protein 9.3 H, Albumin 4.4, Globulin 4.9 H, Albumin/Globulin Ratio 0.9 L Result diagrams: 09/08/21 00:24 09/08/21 00:24 Orders (Tests/Meds): ED MEDICATIONS Generic Name Dose Route Start Last Admin Trade Name Freq PRN Reason Stop Dose Admin Sodium Chloride 1,000 mls @ 999 mls/hr 09/08/21 00:15 09/08/21 00:30 Sod Chlor 0.9% 1000ml Bag IV 09/08/21 01:15 999 mls/hr .Q1H1M GAIL Administration Discontinued Medications Generic Name Dose Route Start Last Admin Trade Name Freq PRN Reason Stop Dose Admin Morphine Sulfate 4 mg 09/08/21 00:15 09/08/21 00:30 Morphine 4mg/Ml Syringe IV 09/08/21 00:16 4 mg ONCE ONE Administration Ondansetron HCl 4 mg 09/08/21 00:15 09/08/21 00:30 Ondansetron 4mg/2ml Vial IV 09/08/21 00:16 4 mg ONCE ONE Administration ORDERS Category Date Time Status Rapid PCR Covid and Flu A/B Stat Lab 09/08/21 00:22 Received - Radiology Data #1 Image(s): Chest, Pelvis, Hip Image Reviewed: Yes I have reviewed radiologist's interpretation Preliminary Findings: Abnormal (hip fx ) - CT Data CT Scan: Head, C-Spine, Other (lt hip) Time Received: 01:[address] Reviewed: Yes: I have viewed the radiologist's interpretation Preliminary Findings: Abnormal (see report ) - ECG Data Tracing #1 Normal Sinus Rhythm: Yes Ischemic changes: non-specific ST-T wave changes Medical Decision Narrative: fall with lt hip fx and will be admitted for ortho consult Fall HPI - General Chief Complaint: Fall Stated Complaint: Leg
[2021-09-07 23:52] LABS: Bilirubin,Urine Negative (Negative); Blood, Urine TRACE-I (Negative); Color,Urine YELLOW (Yellow); Glucose,Urine (UA) Negative (Negative); Ketones,Urine Negative (Negative); Leukocyte Esterase,Urine Negative (Negative); Nitrate,Urine Negative (Negative); PH,Urine 7.5 (5.0-8.5); Protein,Urine Negative (Negative); Urobilinogen,Urine 0.2 EU/dl (0.2)
[2021-09-07 23:54] LABS: Appearance,Urine Cloudy (Clear)
[2021-09-08] VITALS (19 sets, daily range): BP systolic 116–181; BP diastolic 55–94; PULSE 65–88; RESP 16–18; TEMP 36.5–43; O2SAT 97–100; BMI 21.7
--- NOTE | 2021-09-08 | XR_ITS ---
PROCEDURE INFORMATION: Exam: XR Chest Exam date and time: 09/07/2021 11:57 PM Age: 71 years old Clinical indication: Injury or trauma; Fall; Blunt trauma (contusions or hematomas) TECHNIQUE: Imaging protocol: XR of the chest. Views: 4 or more views. COMPARISON: CR XR CHEST 2V 06/22/2021 7:25 PM FINDINGS: Lungs: Lungs are clear. Pleural spaces: No pleural effusion. No pneumothorax. Heart/Mediastinum: Cardiomediastinal silhouette is unchanged, accounting for differences in technique. Bones/joints: No acute osseous abnormality. Soft tissues: Unremarkable. IMPRESSION: No acute findings.
--- NOTE | 2021-09-08 | XR_ITS ---
PROCEDURE INFORMATION: Exam: XR Left Hip Exam date and time: 09/07/2021 11:56 PM Age: 71 years old Clinical indication: Injury or trauma; Fall; Blunt trauma (contusions or hematomas); Left; Hip TECHNIQUE: Imaging protocol: XR Left hip. Views: 2 or 3 views hip with pelvis when performed. COMPARISON: CR XR PELVIS 1-2V 06/06/2021 9:57 PM FINDINGS: Bones/joints: Acute subcapital fracture of the proximal left femur. Pubic symphysis and bilateral sacroiliac joints are congruent. Soft tissues: Unremarkable. IMPRESSION: Acute subcapital fracture of the proximal left femur.
[2021-09-08 00:07] LABS: Amorphous Sediment,Urine 1+ /lpf; Bacteria,Urine Trace /lpf; WBC,Urine Occasional #/hpf (0-3)
--- NOTE | 2021-09-08 00:11 | CT_ITS ---
PROCEDURE INFORMATION: Exam: CT Left Lower Extremity Without Contrast, Hip Exam date and time: 09/08/2021 12:13 AM Age: 71 years old Clinical indication: Injury or trauma; Fall; Blunt trauma; Hip; Left TECHNIQUE: Imaging protocol: CT of the Left lower extremity without contrast was performed. Exam focused on the hip. Radiation optimization: All CT scans at this facility use at least one of these dose optimization techniques: automated exposure control; mA and/or kV adjustment per patient size (includes targeted exams where dose is matched to clinical indication); or iterative reconstruction. COMPARISON: CR XR HIP LT 2-3V W/PELVIS 09/07/2021 11:56 PM FINDINGS: Bones/joints: Acute comminuted subcapital fracture of the proximal left femur with slight impaction and posterolateral angulation of the distal fragment relative to the proximal. Femoral head remains within the acetabulum. No evidence of acetabular fracture. Well corticated ossicle noted at the anterior aspect the acetabulum compatible with os acetabuli. No no other evidence of acute fracture in the visualized left hemipelvis. Pubic symphysis and left sacroiliac joint remain congruent. Soft tissues: Soft tissue edema noted. IMPRESSION: 1. Acute comminuted subcapital fracture of the proximal left femur, as detailed above. 2. Concurrent CT abdomen/pelvis reported separately.
[2021-09-08 00:34] LABS: Coronavirus 19, PCR Not Detected (NotDetected); Influenza A, PCR Not Detected (NotDetected); Influenza B, PCR Not Detected (NotDetected)
[2021-09-08 00:46] LABS: Basophils # 0.1 K/mm3 (0-0.2); Basophils % 0.8 % (0.1-2.0); Eosinophils % 0.4 % (0.1-12.0); Hematocrit 37.8 % (37.0-47.0); Hemoglobin 12.1 g/dL (12.2-16.2); Lymphocytes # 1.2 K/mm3 (0.7-4.5); Lymphocytes % 11.1 % (10-50); Mean Corpuscular HGB Conc 32.1 g/dL (31.8-35.4); Mean Corpuscular Hemoglobin 26.4 pg (27.0-31.2); Mean Corpuscular Volume 82.2 fl (81-99); Mean Platelet Volume 9.1 fl (7.4-10.4); Monocytes # 0.3 K/mm3 (0.1-1.0); Monocytes % 3.1 % (1.7-9.3); Neutrophils # 8.7 K/mm3 (1.8-7.8); Neutrophils % 84.7 % (37.0-80.0); Platelet Count 239 K/mm3 (142-424); Red Cell Distribution Width 16.3 % (11.5-17.5); White Blood Count 10.3 K/mm3 (4.8-10.8)
[2021-09-08 00:50] LABS: Chloride 101 mmol/L (98-107); Potassium 4.2 mmoL/L (3.5-5.1); Sodium 137 mmol/L (136-145)
[2021-09-08 00:53] LABS: Alanine Aminotransferase 77 U/L (12-78); Albumin Level 4.4 g/dl (3.5-5.0); Albumin/Globulin Ratio 0.9 (1.1-1.8); Alkaline Phosphatase 252 U/L (38-126); Anion Gap 11.2 mEq/L (5-15); Aspartate Amino Transferase 71 U/L (14-36); Bilirubin,Total 0.5 mg/dl (0.2-1.3); Blood Urea Nitrogen 21 mg/dl (7-17); Carbon Dioxide 29 mmol/L (22.0-30.0); Creatinine Clearance Estimated 48 mL/min (50-200); Estimated Glomerular Filt Rate 156 ml/min (>60); GFR (African American) 189 ML/MIN (>60); Globulin 4.9 g/dL (1.3-3.2); Total Protein,Serum 9.3 g/dl (6.3-8.2)
[2021-09-08 00:54] LABS: Calcium 9.7 mg/dl (8.4-10.2); Glucose 174 mg/dl (74-100)
[2021-09-08 05:56] LABS: POC Glucose,Bedside 130 (70-110)
[2021-09-08 06:15] LABS: Basophils % 0.3 % (0.1-2.0); Hematocrit 33.7 % (37.0-47.0); Hemoglobin 11.2 g/dL (12.2-16.2); Lymphocytes # 1.4 K/mm3 (0.7-4.5); Lymphocytes % 14.4 % (10-50); Mean Corpuscular HGB Conc 33.1 g/dL (31.8-35.4); Mean Corpuscular Hemoglobin 27.1 pg (27.0-31.2); Mean Corpuscular Volume 81.7 fl (81-99); Mean Platelet Volume 9.5 fl (7.4-10.4); Monocytes # 0.4 K/mm3 (0.1-1.0); Monocytes % 4.4 % (1.7-9.3); Neutrophils % 80.8 % (37.0-80.0); Platelet Count 197 K/mm3 (142-424); Red Blood Count 4.12 M/mm3 (4.20-5.40); Red Cell Distribution Width 16.2 % (11.5-17.5)
[2021-09-08 06:31] LABS: Anion Gap 11.2 mEq/L (5-15); Blood Urea Nitrogen 18 mg/dl (7-17); Calcium 8.7 mg/dl (8.4-10.2); Carbon Dioxide 29 mmol/L (22.0-30.0); Chloride 101 mmol/L (98-107); Creatinine Clearance Estimated 48 mL/min (50-200); Estimated Glomerular Filt Rate 121 ml/min (>60); GFR (African American) 146 ML/MIN (>60); Glucose 134 mg/dl (74-100); Potassium 4.2 mmoL/L (3.5-5.1); Sodium 137 mmol/L (136-145)
--- NOTE | 2021-09-08 07:13 | HMH.PHAVTE ---
[facility] Pharmacy VTE Monitoring - Patient Demographics Admission date: 09/07/21 Report Date: 09/08/21 Time: 07:13 Allergies/Adverse Reactions: Patient Allergies aspirin Allergy (Verified 09/04/21 13:02) acetaminophen [ACETAMINOPHEN] Adverse Reaction (Verified 09/04/21 13:02) d/t fatty liver Height: 1.68 m Weight: 61.292 kg Patient Problems: Current Active Problems LEMON (nonalcoholic steatohepatitis) (Acute) Hip fracture (Acute) Type 2 diabetes mellitus with hyperglycemia, without long-term current use of insulin (Acute) - VTE Risk Labs: VTE Related Lab Results Hgb 11.2 g/dL (12.2-16.2) L 09/08/21 05:41 Hct 33.7 % (37.0-47.0) L 09/08/21 05:41 Plt Count 197 K/mm3 (142-424) 09/08/21 05:41 BUN 18 mg/dl (7-17) H 09/08/21 05:41 Creatinine 0.50 mg/dl (0.52-1.04) L D 09/08/21 05:41 Estimated Creat Clear 48 mL/min (50-200) 09/08/21 05:41 - Prophylaxis VTE Prophylaxis Ordered?: Yes Types of VTE Prophylaxis: TEDS Knee High Location of Applied Device: Bilateral Lower Extremeties
--- NOTE | 2021-09-08 07:34 | HMH.PHAINT ---
MEDICATION RECONCILIATION COMPLETED ON PATIENT USING EXTERNAL FILL HISTORY FROM PHARMACY AND LISTS FROM UROLOGY/CARDIOLOGY NOTES. -KEVIN DEL CIDD
--- NOTE | 2021-09-08 08:22 | HMH.HP ---
*Admission Date: 09/07/21 *Chief complaint: Left hip pain *History of present illness: 71-year-old female patient arrived to the [facility] emergency department via EMS and left leg was externally rotated and shortened, there is also pain with left hip palpation. Reports waking in the middle of the night, getting out of bed to get some to eat, and following and fracturing her left hip. Left hip x-ray reveals Acute subcapital fracture of the proximal left femur. She does have a history of hypertension and diabetes, cardiology consult [facility] History I have reviewed the patient's past medical history: Yes Medical History: Reports:: Anxiety, Arrhythmia, Depression, Diabetes Mellitus Type 2, Heart Murmur, Hyperlipidemia, Hypertension, Internal Pacemaker, MRSA, Urinary Tract Infection Denies:: Cancer, Diabetes Mellitus Type 1, Lung Disease, Seizures *Have you ever received a pneumonia vaccine?: Yes *Have you received a flu vaccine this season?: Yes Other Medical History: Reports: Other Other Surgeries: Yes: No Previous Surgery, Cholecystectomy, Colonoscopy, Hysterectomy-Total, Pacemaker, Other (back I&D) Amputation: No Fractures: No - *Social History Last grade of school completed: GED Smoking Status: Never smoker Alcohol Intake: never Alcohol Intake Frequency:: other Substance Use Type: denies use *Occupational Status:: retired, disabled Housing: apartment Household Members: family *Travel in the last 8 weeks: None - Psychiatric History Pschychiatric History:: Reports:: Anxiety, Depression Family Hx:: Cancer Review of Systems - Review of Systems Review of systems:: pertinent systems reviewed and negative unless documented below - Constitutional Denies anorexia, Denies fatigue - Eyes Denies blurry vision, Denies double vision - ENT Denies abnormal hearing - *Cardiovascular Denies chest pain, Denies shortness of breath - *Respiratory Denies chest congestion, Denies cough - *Gastrointestinal Denies abdominal pain, Denies change in stools - *Musculoskeletal Reports abnormal walking, Reports joint pain, Reports deformity, Reports limited joint movement - Integumentary/Breasts Denies change in skin color, Denies yellowing of the skin - *Neurologic Denies abnormal hearing, Denies localized weakness, Denies seizure-like activity - Psychiatric Denies hearing things others do not hear, Denies thoughts of hurting/killing yourself - Endocrine Denies cold intolerance, Denies excessive sweating - Hematologic/Lymphatic Denies easy bleeding, Denies easy bruising - Allergic/Immunologic Denies GI upset with certain foods, Denies itchy eyes Meds Home Medications Medication Instructions Recorded Confirmed Type Venlafaxine HCl 50 mg PO BID 02/01/18 09/08/21 History metformin 1,000 mg tablet 1,000 mg PO BIDWMEAL tab 04/23/21 09/08/21 History alpha lipoic acid 250 mg capsule 100 mg PO TID cap 06/22/21 09/08/21 History lisinopril 5 mg tablet 5 mg PO HS #90 tab 08/20/21 09/08/21 Rx Quetiapine Fumarate 25 mg PO HS 09/08/21 09/08/21 History Allergies Allergy/AdvReac Type Severity Reaction Status Date / Time aspirin Allergy Verified 09/04/21 13:02 acetaminophen [ACETAMINOPHEN] AdvReac d/t fatty Verified 09/04/21 13:02 liver Exam Vital signs and Labs for Last 24 Hours: Temp Pulse Resp BP Pulse Ox 97.9 F 82 16 157/85 H 100 09/08/21 03:38 09/08/21 03:38 09/08/21 03:38 09/08/21 03:38 09/08/21 03:38 Laboratory Results - last 24 hr 09/07/21 23:26: POC Glucose 149 H 09/07/21 23:32: Urine Color Yellow, Urine Appearance Cloudy, Urine pH 7.5, Ur Specific [place] 1.020, Urine Protein Negative, Urine Glucose (UA) Negative, Urine Ketones Negative, Urine Blood Trace-i, Urine Nitrate Negative, Urine Bilirubin Negative, Urine Urobilinogen 0.2, Ur Leukocyte Esterase Negative, Urine RBC 3-5, Urine WBC Occasional, Amorphous Sediment 1+, Urine Bacteria Trace 09/08/21 00:22: SARS-CoV-2 (PC
--- NOTE | 2021-09-08 08:57 | HMH.CNCARD ---
History of Present Illness Consult date: 09/08/21 Requesting physician: Shaheen Laura Chief complaint: surgical clearance Additional Medical History:: Past medical hx of HTN and DM History of present illness: 71 year old female with past medical hx of HTN and DM presented to ER yesterday with complaint of fall. Patient reports she was in kitchen getting something to eat and then fell. She reports she is unsure if she tripped or passed out. reports she was on floor for about an hour until neighbor found her. States she did not hit head. Patient was admitted for left hip fracture. Cardiology asked to consult for surgical clearance. patient denies hx of chest pain or soa. Denies prior stenting or dx of heart failure. Good baseline functional capacity, lives alone, states does home chores by self without soa or chest pain. [facility] History Medical History: Reports:: Anxiety, Depression, Diabetes Mellitus Type 2, Hypertension, MRSA, Urinary Tract Infection Denies:: Cancer, Diabetes Mellitus Type 1, Lung Disease, Seizures *Have you ever received a pneumonia vaccine?: Yes *Have you received a flu vaccine this season?: Yes Other Medical History: Reports: Other Other Surgeries: Yes: No Previous Surgery, Cholecystectomy, Colonoscopy, Hysterectomy-Total, Pacemaker, Other (back I&D) Amputation: No Fractures: No - *Social History Last grade of school completed: GED Smoking Status: Never smoker Alcohol Intake: never Alcohol Intake Frequency:: other Substance Use Type: denies use *Occupational Status:: retired, disabled Housing: apartment Household Members: family *Travel in the last 8 weeks: None - Psychiatric History Pschychiatric History:: Reports:: Anxiety, Depression Family Hx:: Cancer Meds Home Medications Medication Instructions Recorded Confirmed Type Venlafaxine HCl 50 mg PO BID 02/01/18 09/08/21 History metformin 1,000 mg tablet 1,000 mg PO BIDWMEAL tab 04/23/21 09/08/21 History alpha lipoic acid 250 mg capsule 100 mg PO TID cap 06/22/21 09/08/21 History lisinopril 5 mg tablet 5 mg PO HS #90 tab 08/20/21 09/08/21 Rx Quetiapine Fumarate 25 mg PO HS 09/08/21 09/08/21 History Allergies Allergy/AdvReac Type Severity Reaction Status Date / Time aspirin Allergy Verified 09/04/21 13:02 acetaminophen [ACETAMINOPHEN] AdvReac d/t fatty Verified 09/04/21 13:02 liver Exam Vital signs and Labs for Last 24 Hours: Temp Pulse Resp BP Pulse Ox 97.9 F 67 17 144/78 H 99 09/08/21 08:00 09/08/21 08:00 09/08/21 08:00 09/08/21 08:00 09/08/21 08:00 Laboratory Results - last 24 hr 09/07/21 23:26: POC Glucose 149 H 09/07/21 23:32: Urine Color Yellow, Urine Appearance Cloudy, Urine pH 7.5, Ur Specific [place] 1.020, Urine Protein Negative, Urine Glucose (UA) Negative, Urine Ketones Negative, Urine Blood Trace-i, Urine Nitrate Negative, Urine Bilirubin Negative, Urine Urobilinogen 0.2, Ur Leukocyte Esterase Negative, Urine RBC 3-5, Urine WBC Occasional, Amorphous Sediment 1+, Urine Bacteria Trace 09/08/21 00:22: SARS-CoV-2 (PCR) Not detected, Influenza A Untype (PCR) Not detected, Influenza Type B (PCR) Not detected 09/08/21 00:24: WBC 10.3, RBC 4.60, Hgb 12.1 L, Hct 37.8, MCV 82.2, MCH 26.4 L, MCHC 32.1, RDW 16.3, Plt Count 239, MPV 9.1, Neut % (Auto) 84.7 H, Lymph % (Auto) 11.1, [place] % (Auto) 3.1, Eos % (Auto) 0.4, Baso % (Auto) 0.8, Neut # (Auto) 8.7 H, Lymph # (Auto) 1.2, [place] # (Auto) 0.3, Eos # (Auto) 0.0, Baso # (Auto) 0.1 09/08/21 00:24: Sodium 137, Potassium 4.2, Chloride 101, Carbon Dioxide 29, Anion Gap 11.2, BUN 21 H, Creatinine 0.40 L, Estimated Creat Clear 48, Estimated GFR 156, Est GFR ( Amer) 189, Glucose 174 H, Calcium 9.7, Total Bilirubin 0.5, AST 71 H, ALT 77, Alkaline Phosphatase 252 H, Total Protein 9.3 H, Albumin 4.4, Globulin 4.9 H, Albumin/Globulin Ratio 0.9 L 09/08/21 05:17: POC Glucose 130 H 09/08/21 05:41: WBC 10.0, RBC 4.12 L, Hgb 11.2 L, Hct 33.7 L, MCV 81.7, MCH 27.1, MCHC 33.1, RDW 16.
--- NOTE | 2021-09-08 09:14 | PC.NURSE ---
call office and spoke with BJ. she text DR. CRUZ and told him of consult
[2021-09-08 12:16] LABS: POC Glucose,Bedside 110 (70-110)
--- NOTE | 2021-09-08 14:24 | HMH.ORTHOCON ---
*Admission Date: 09/07/21 *Reason for consult:: left femoral neck fracture *History of present illness: 71-year-old female was getting up to get a snack yesterday evening, was using a walker to go to the kitchen when she tripped and fell. She is not sure if she lost consciousness but denies hitting her head. She uses a walker at baseline secondary to previous falls. She denies history of antecedent hip pain. No known history of cancer. She says she has a history of a staph infection but does not recall details. She was admitted overnight, underwent CT of the head and neck which demonstrated no acute abnormalities. I was consulted regarding a left subcapital femoral neck fracture. He lives at home alone, makes all of her own medical decisions. She says she has no family, but has neighbors and friends who check on her. [facility] History Medical History: Reports:: Anxiety, Depression, Diabetes Mellitus Type 2, Hypertension, MRSA, Urinary Tract Infection Denies:: Cancer, Diabetes Mellitus Type 1, Lung Disease, Seizures *Have you ever received a pneumonia vaccine?: Yes *Have you received a flu vaccine this season?: Yes Other Medical History: Reports: Other Other Surgeries: Yes: No Previous Surgery, Cholecystectomy, Colonoscopy, Hysterectomy-Total, Other (back I&D) Amputation: No Fractures: No - *Social History Last grade of school completed: GED Smoking Status: Never smoker Alcohol Intake: never Alcohol Intake Frequency:: other Substance Use Type: denies use *Occupational Status:: retired, disabled Housing: apartment Household Members: family *Travel in the last 8 weeks: None - Psychiatric History Pschychiatric History:: Reports:: Anxiety, Depression Family Hx:: Cancer Review of Systems - Review of Systems Review of systems:: pertinent systems reviewed and negative unless documented below - *Cardiovascular Denies chest pain, Denies chest pain with activity, Denies shortness of breath - *Respiratory Denies shortness of breath, Denies wheezing - *Gastrointestinal Denies abdominal pain, Denies change in bowel habits - *Genitourinary Denies painful urination - *Musculoskeletal Reports joint pain, Reports limited joint movement Comments: left hip pain - *Neurologic Reports abnormal walking, Reports frequent falls, Denies abnormal hearing, Denies localized weakness, Denies seizure-like activity Meds Home Medications Medication Instructions Recorded Confirmed Type Venlafaxine HCl 50 mg PO BID 02/01/18 09/08/21 History metformin 1,000 mg tablet 1,000 mg PO BIDWMEAL tab 04/23/21 09/08/21 History alpha lipoic acid 250 mg capsule 100 mg PO TID cap 06/22/21 09/08/21 History lisinopril 5 mg tablet 5 mg PO HS #90 tab 08/20/21 09/08/21 Rx Quetiapine Fumarate 25 mg PO HS 09/08/21 09/08/21 History Allergies Allergy/AdvReac Type Severity Reaction Status Date / Time aspirin Allergy Verified 09/04/21 13:02 acetaminophen [ACETAMINOPHEN] AdvReac d/t fatty Verified 09/04/21 13:02 liver Exam Vital signs and Labs for Last 24 Hours: Temp Pulse Resp BP Pulse Ox 97.9 F 67 17 144/78 H 99 09/08/21 08:00 09/08/21 08:00 09/08/21 08:00 09/08/21 08:00 09/08/21 08:00 Laboratory Results - last 24 hr 09/07/21 23:26: POC Glucose 149 H 09/07/21 23:32: Urine Color Yellow, Urine Appearance Cloudy, Urine pH 7.5, Ur Specific Antigo 1.020, Urine Protein Negative, Urine Glucose (UA) Negative, Urine Ketones Negative, Urine Blood Trace-i, Urine Nitrate Negative, Urine Bilirubin Negative, Urine Urobilinogen 0.2, Ur Leukocyte Esterase Negative, Urine RBC 3-5, Urine WBC Occasional, Amorphous Sediment 1+, Urine Bacteria Trace 09/08/21 00:22: SARS-CoV-2 (PCR) Not detected, Influenza A Untype (PCR) Not detected, Influenza Type B (PCR) Not detected 09/08/21 00:24: WBC 10.3, RBC 4.60, Hgb 12.1 L, Hct 37.8, MCV 82.2, MCH 26.4 L, MCHC 32.1, RDW 16.3, Plt Count 239, MPV 9.1, Neut % (Auto) 84.7 H, Lymph % (Auto) 11.1, Boyle % (Aut
[2021-09-08 16:17] LABS: Prothrombin Time 12.3 seconds (10.1-12.5)
--- NOTE | 2021-09-08 16:20 | XR_ITS ---
PROCEDURE INFORMATION: Exam: XR Left Hip Exam date and time: 09/08/21 05:03 PM Age: 71 years old Clinical indication: Device placement; Other: Left hip hemiarthroplasty in or; Additional info: Left hip hemiarthrotplasty done in or, portable exam TECHNIQUE: Imaging protocol: XR Left hip. Views: 2 or 3 views hip with pelvis when performed. COMPARISON: CT HIP LT WO CON 09/08/21 12:13 AM FINDINGS: Bones/joints: Intraoperative views of the left hip during left hip arthroplasty are unremarkable. Soft tissues: Unremarkable. IMPRESSION: Intraoperative views of the left hip during left hip arthroplasty are unremarkable.
--- NOTE | 2021-09-08 16:25 | HMH.ANESCL ---
[facility] Anesthesia Checklist - Patient Identification Patient Identification: Arm Band - Structural Data Admitted From: Home Planned Operative Procedure/s: Left Hip Hemiarthroplasty Consent for Planned Operative Procedure(s) Verified: Yes Verified Documents: Surgical Consent, History and Physical - NPO Status Verified Time NPO: 00:00 - Additional verifications Anesthesia Reactions: No - Airway Assessment C-Spine Mobility Assessed: Yes (mp2) TMJ Mobility Assessed: Yes Dentition: Edentulous - Neurological Assessment Level of Consciousness: Awake, Alert - Anesthesia Plan Anesthesia Risk discussed: Yes Anesthesia Plan: Verified ASA Class: II Anesthesia Type: MAC w/Spinal (Discussed risk/benefits of sab vs ga. Pt verbalized understanding and agreed to proceed with SAB/MAC) [facility] History I have reviewed the patient's past medical history: Yes Medical History: Reports:: Anxiety, Depression, Diabetes Mellitus Type 2, Hypertension, MRSA, Urinary Tract Infection Denies:: Cancer, Diabetes Mellitus Type 1, Lung Disease, Seizures *Have you ever received a pneumonia vaccine?: Yes *Have you received a flu vaccine this season?: Yes Other Medical History: Reports: Other Anesthesia experience/problems:: nac Other Surgeries: Yes: Cholecystectomy, Colonoscopy, Hysterectomy-Total, Other (back I&D) Amputation: No Fractures: No - *Social History Last grade of school completed: GED Smoking Status: Never smoker Alcohol Intake: never Alcohol Intake Frequency:: other Substance Use Type: denies use *Occupational Status:: retired, disabled Housing: apartment Household Members: family *Travel in the last 8 weeks: None - Psychiatric History Pschychiatric History:: Reports:: Anxiety, Depression Family Hx:: Cancer
--- NOTE | 2021-09-08 18:11 | XR_ITS ---
PROCEDURE INFORMATION: Exam: XR Left Hip Exam date and time: 09/08/21 06:47 PM Age: 71 years old Clinical indication: Device placement; Other: Left hip hemiarthroplasty; Additional info: S/P left hip hemiarthroplasty TECHNIQUE: Imaging protocol: XR Left hip. Views: 2 or 3 views hip with pelvis when performed. COMPARISON: CR XR HIP LT 2-3V W/PELVIS 09/08/21 05:03 PM FINDINGS: Bones/joints: Left hip arthroplasty. Soft tissues: Unremarkable. IMPRESSION: Left hip arthroplasty.
--- NOTE | 2021-09-08 18:24 | HMH.OPNOTE ---
Date of procedure: 09/08/21 Pre-op Diagnosis:: left femoral neck fracture Post-op Diagnosis:: same Procedure performed:: [id number]: left hip hemiarthroplasty Surgeon:: Fahad Acosta JR, MD Rough Carpenter(s):: Debora Araya PA-C PARKING METER ATTENDANT:: Inder Barraza Anesthesia: GETA, epidural Estimated blood loss (mL): 100 Operative findings:: Symmetric leg lengths noted. Final components stable through flexion past 90 degrees, internal rotation greater than 60 degrees with hip flexed, sleeper position, shuck test, with appropriate knee flexion with hip extended. Operative note:: 71-year-old female with well-controlled diabetes, history of falls, history of MRSA, with left closed, acute, traumatic, unstable subcapital femoral neck fracture as result of a ground-level fall. I had a discussion with her regarding further management including nonoperative treatment, internal fixation, as well as arthroplasty, both total hip arthroplasty and hip hemiarthroplasty. She wanted to regain functional mobility as soon as possible. Since she had no history of antecedent hip pain and no significant arthritic changes on radiographs or CT, I counseled her the most reliable way to get her moving again quickly would be for left hip hemiarthroplasty. She was amenable with that plan. I discussed with her cemented versus noncemented femoral stem. I counseled her that there is slightly higher risk of perioperative complication with cemented stem, but there are generally fewer complications long-term such as periprosthetic fracture and subsidence. As such, we planned for cemented stem. We planned for for left hip cemented hemiarthroplasty. We discussed risk and benefits of surgery, risks included but were not limited to pain, bleeding, infection, damage to adjacent structures, leg length asymmetry, periprosthetic fracture, blood clot, embolism, stroke, prosthetic dislocation, need for further surgery, loss of limb, . She expressed verbal consent risks it was obtained. Patient was identified in preoperative holding. Operative site was marked in indelible ink. History, physical, consent were reviewed and updated. Patient was surrendered to the anesthesia team, taken to the operative suite. Anesthesia was induced. Patient was then placed in the lateral decubitus position on a well-padded operative table. All bony prominences were padded and an axillary roll was placed. The operative extremity was prepped and draped in the usual sterile fashion. The operative team donned sterile gowns and gloves and a timeout was called. All in attendance agreed regarding the patient's identity, procedure, operative site. Weight-based dose of antibiotics was given prior to incision. A skin maker was then used to lottie all bony prominences. Skin incision was then carried out extending from the greater trochanter in a curvilinear fashion posteriorly across the buttocks. I incised the skin with a scalpel, then using a Bovie dissected through tissues. The fascia lexx was incised utilizing Metzenbaum scissors. This was taken down to the bursa, which was removed utilizing a rongeur. Utilizing a periosteal elevator as well as the sponge, the fat was then freed from the short external rotators of the left hip after these were placed and stretched. The sciatic nerve was protected. Bovie was used to remove the short external rotators from the greater trochanter, which revealed the joint capsule. His were tagged for later repair. The capsule was cleared and incised utilizing a T-shape incision. A fracture hematoma was noted upon entering the joint capsule as well as the femoral neck fracture. A cork screw was then used to remove the fractured femoral head, which was given to the tissue technician which was sized on the back table. All bony remnants were then removed from the acetabulum and surrounding soft tissue with a rongeur. Acetabulum was then inspected and found to be clear. Attention was then turned
--- NOTE | 2021-09-08 18:37 | HMH.ANESI ---
[facility] Anesthesia Record Part I Intake, IV Amount: 1,900 Estimated blood loss (mL): 100 Urine output (mL): 1,000 Blood Pressure: 144/71 SaO2: 99 Pulse Rate: 67 Respiratory Rate: 16 Temperature: 97.7 F Patient is:: Drowsy, Stable Stable to PACU at:: 18:30
--- NOTE | 2021-09-08 18:57 | PC.NURSE ---
REPORT RECEIVED FROM EPHRAIM ECHOLS
[2021-09-08 18:58] LABS: Hematocrit 33.9 % (37.0-47.0)
[2021-09-08 19:02] LABS: POC Glucose,Bedside 112 (70-110)
[2021-09-08 20:43] LABS: POC Glucose,Bedside 118 (70-110)
--- NOTE | 2021-09-08 21:13 | PC.NURSE ---
183-radiology at bedside 1844-checked fsbs with results of 112, no further orders at this time 1848-lab at bedside to draw h/h as ordered per 1855-detailed report called to EPHRAIM Leal 1899-pt transported to 2nd floor via hospital bed w/rails up per EPHRAIM Tierney and CRISTIAN Lagunas, pt stable upon discharge from pacu
[2021-09-09] VITALS (7 sets, daily range): BP systolic 143–185; BP diastolic 57–81; PULSE 70–113; RESP 16–18; TEMP 36.4–37.7; O2SAT 94–100; BMI 21.7; BMI 21.6
--- NOTE | 2021-09-09 03:18 | P.PN_ITS ---
Subjective Date: 09/09/21 Time: 03:19 Principal diagnosis: left femoral neck fracture s/p left hip hemiarthroplasty Interval history: Resting comfortably. No events overnight. Pain tolerable. PN: Obj Ex Vital signs: Temp Pulse Resp BP Pulse Ox 97.6 F 85 16 185/77 H 100 09/09/21 00:00 09/09/21 00:00 09/09/21 00:00 09/09/21 00:00 09/09/21 00:00 - Constitutional no acute distress - Routine HEENT Exam Head: Present: normocephalic, atraumatic - Routine Neck Exam Present: supple - Routine Respiratory Exam Absent: accessory muscle use, respiratory distress - Routine Cardiovascular Exam Present: RRR - Routine Abdominal Exam Present: soft. Absent: distended - Detailed Lower Extremity Exam Hip: Left normal inspection (Left hip dressing c/d/i. No calf tenderness. Intact EHL / FHL / TA / GS. Sensation intact DP/SP/T/Mclean/Sa. Palpable DP / PT pulse. Hip abduction pillow / knee immobilizer in place.) - Urinary Catheter Management Mckeon Cath placed during this visit: no Progress Note: A&P (1) Closed left hip fracture Status: Acute Assessment and plan: 71-year-old female with left femoral neck fracture status post left hip hemiarthroplasty with cemented prosthesis September 08, 2021. Postoperative radiographs demonstrate reduced hip hemiarthroplasty with cement mantle about femoral component. Weightbearing as tolerated left lower extremity. Posterior hip precautions. PT/OT. 23 hours antibiotics. DVT prophylaxis PLOV 30 mg BID x4 weeks, pain ma nagement. Discharge planning. Plan for follow-up in 2 weeks for wound check and repeat radiographs. (2) Fall Status: Acute (3) LEMON (nonalcoholic steatohepatitis) Status: Acute (4) Type 2 diabetes mellitus with hyperglycemia, without long-term current use of insulin Status: Acute (5) HTN (hypertension) Status: Chronic
--- NOTE | 2021-09-09 04:23 | PC.NURSE ---
Patient is alert and oriented x4, has no c/o pain this shift. Has been able to eat pudding and jello without difficulty, continues on room air with O2 saturations >95%. Dressing to left hip clean, dry and intact. Call light in place and working appropriately.
[2021-09-09 06:48] LABS: Anion Gap 8.7 mEq/L (5-15); Blood Urea Nitrogen 11 mg/dl (7-17); Calcium 8.4 mg/dl (8.4-10.2); Carbon Dioxide 28 mmol/L (22.0-30.0); Chloride 101 mmol/L (98-107); Creatinine Clearance Estimated 48 mL/min (50-200); Estimated Glomerular Filt Rate 156 ml/min (>60); GFR (African American) 189 ML/MIN (>60); Glucose 155 mg/dl (74-100); Potassium 3.7 mmoL/L (3.5-5.1); Sodium 134 mmol/L (136-145)
[2021-09-09 06:50] LABS: Basophils # 0.1 K/mm3 (0-0.2); Basophils % 0.7 % (0.1-2.0); Hematocrit 33.4 % (37.0-47.0); Lymphocytes # 0.9 K/mm3 (0.7-4.5); Lymphocytes % 8.3 % (10-50); Mean Corpuscular Hemoglobin 26.7 pg (27.0-31.2); Mean Platelet Volume 9.6 fl (7.4-10.4); Monocytes # 0.6 K/mm3 (0.1-1.0); Monocytes % 6.1 % (1.7-9.3); Neutrophils # 8.7 K/mm3 (1.8-7.8); Neutrophils % 84.9 % (37.0-80.0); Platelet Count 202 K/mm3 (142-424); Red Blood Count 4.13 M/mm3 (4.20-5.40); White Blood Count 10.3 K/mm3 (4.8-10.8)
--- NOTE | 2021-09-09 09:52 | HMH.ACPN2 ---
Internal Medicine - PN: Subj *Date: 09/09/21 *Time: 08:30 Interval history: pt states she feels well Exam Vital signs and Labs for Last 24 Hours: Temp Pulse Resp BP Pulse Ox 99.8 F H 113 H 18 167/81 H 96 09/09/21 08:00 09/09/21 08:00 09/09/21 08:00 09/09/21 08:00 09/09/21 08:00 Laboratory Results - last 24 hr 09/08/21 11:51: POC Glucose 110 09/08/21 15:54: PT 12.3, INR 1.10 09/08/21 18:45: POC Glucose 112 H 09/08/21 18:48: Hgb 11.0 L, Hct 33.9 L 09/08/21 20:34: POC Glucose 118 H 09/09/21 05:56: WBC 10.3, RBC 4.13 L, Hgb 11.0 L, Hct 33.4 L, MCV 81.0, MCH 26.7 L, MCHC 33.0, RDW 16.0, Plt Count 202, MPV 9.6, Neut % (Auto) 84.9 H, Lymph % (Auto) 8.3 L, Park % (Auto) 6.1, Eos % (Auto) 0.0 L, Baso % (Auto) 0.7, Neut # (Auto) 8.7 H, Lymph # (Auto) 0.9, Park # (Auto) 0.6, Eos # (Auto) 0.0, Baso # (Auto) 0.1 09/09/21 05:56: Sodium 134 L, Potassium 3.7, Chloride 101, Carbon Dioxide 28, Anion Gap 8.7, BUN 11 D, Creatinine 0.40 L, Estimated Creat Clear 48, Estimated GFR 156, Est GFR ( Amer) 189 D, Glucose 155 H, Calcium 8.4 I & O for Last 24 hours: Intake & Output 09/06/21 09/07/21 09/08/21 09/09/21 11:59 11:59 11:59 11:59 Intake Total 454 / 454 2952 / 2952 Output Total 1100 / 1100 1300 / 1300 Balance -646 / -646 1652 / 1652 Weight 135 lb 2.012 oz 134 lb 7.712 oz - Constitutional no acute distress - *Routine HEENT Exam Head: Present: normocephalic Eye: Present: PERRL ENT: Present: mucous membranes moist - *Routine Neck Exam Present: supple. Absent: lymphadenopathy - *Routine Respiratory Exam Present: CTA bilaterally - *Routine Cardiovascular Exam Present: RRR - *Routine Abdominal Exam Present: soft, normoactive bowel sounds. Absent: tenderness - *Routine Extremities Exam Absent: cyanosis, clubbing, edema - *Routine Skin Exam Present: warm. Absent: rash Comments: dressing c/d/i - *Routine Neurological Exam Present: alert, oriented X3 Assessment and Plan (1) Closed left hip fracture Start date: 09/07/21 Start time: 23:00 Status: Acute Qualifiers: Encounter type: initial encounter Qualified Code(s): S72.002A - Fracture of unspecified part of neck of left femur, initial encounter for closed fracture Category: Medical Code(s): S72.002A - Fracture of unspecified part of neck of left femur, initial encounter for closed fracture (2) Fall Status: Acute Qualifiers: Encounter type: initial encounter Qualified Code(s): W19.XXXA - Unspecified fall, initial encounter Category: Medical Code(s): W19.XXXA - Unspecified fall, initial encounter (3) LEMON (nonalcoholic steatohepatitis) Status: Acute Category: Medical Code(s): K75.81 - Nonalcoholic steatohepatitis (LEMON) (4) Type 2 diabetes mellitus with hyperglycemia, without long-term current use of insulin Status: Acute Category: Medical Code(s): E11.65 - Type 2 diabetes mellitus with hyperglycemia (5) HTN (hypertension) Status: Chronic Qualifiers: Hypertension type: primary hypertension Qualified Code(s): I10 - Essential (primary) hypertension Category: Medical Code(s): I10 - Essential (primary) hypertension - Assessment and plan all Dx Assessment and Plan for all problems:: rounded with dr schroeder all orders per dr elda montenegro consulted pt/ot
--- NOTE | 2021-09-09 10:02 | P.PN_ITS ---
[facility] Anesthesia Record Part II Discharge Time: 19:00 Destination: Medical Surgical Department PACU nurse assessment reviewed?: Yes Patient Condition:: Good Anesthesia Complications:: None Swallowing reflex intact?: Yes Cyanosis?: No Blood Pressure: 143/57 Pulse Rate: 70 Temperature: 97.9 F Mental Status: Alert & Oriented Pain level:: 0 Nausea and/or vomitting:: None Intake, IV Amount: 0
--- NOTE | 2021-09-09 10:05 | HMH.OTEV ---
OT Inpatient Evaluation Rehab OT IP Evaluation Start: 09/08/21 18:17 Freq: ONCE Status: Complete Protocol: Document 09/09/21 09:47 NICOLEKORI (Rec: 09/09/21 10:05 MARCELINO [id number]) Rehab OT IP Assessment Subjective History 71-year-old female with well- controlled diabetes, history of falls, history of MRSA, with left closed, acute, traumatic, unstable subcapital femoral neck fracture as result of a ground-level fall. Patient underwent a left hip hemiarthroplasty on 09/08/21. Postoperatively plan for weightbearing as tolerated, posterior hip precautions, DVT prophylaxis. Subjective I can get up. Instructed Patient on proper hand and foot placement to complete supine->sit @ EOB requiring Max A x2. Patient required TD to complete LB drsg task per procotol. Instructed Patient on completing SPT from EOB-> recliner requiring Mod A x2 with usage of RW. Left Patient sitting up in recliner with needs met at end of session. Objective Patient Orientation Person,Name,Birthday,Year Upper Extremity Gross ROM WFL Bed Mobility bed mobility - supine/sit Assist Level Maximum x 2 (75% assist) Transfer Training Sit/Stand/Pivot Transfer Assist Level Moderate x 2 (50% assist) Chair Transfer Ability Moderate x 2 (50% assist) Chair Transfer Technique Stand Step Pivot Chair Transfer Assistive Devices Rolling Walker Lower Body Dressing Ability Unable/Dependant Rehab OT IP prob,goals,plan Problems Date of Evaluation: 09/09/21 OT IP Problems Bed Mobility,Transfers,Gait, Balance,Self care,Safety Rehab Potential Rehab Potential Good Equipment Needs Assistive Devices Rolling / Wheeled Walker Plan OT intervention Plan Bed Mobility,Transfers,Gait, Balance,Self care,Safety, Therapeutic Exercise OT Plan Frequency Daily Duration LOS Discharge Goals Bed Mobility Ability Assistance x1 Sit to S
--- NOTE | 2021-09-09 11:01 | HMH.PTEV ---
Physical Therapy Evaluation Rehab PT IP Evaluation Start: 09/08/21 18:17 Freq: ONCE Status: Active Protocol: Document 09/09/21 10:56 JOSSUELILIAM (Rec: 09/09/21 11:01 ARNULFO [id number]) Subjective/History History History THis is the initial IP PT evalaution for Alexa [place]. Pt is a 71 y/o female admitted to [facility] s/p fall at home causing L femoral neck fx. Pt underwent successfull randall- arthroplasty of L hip Subjective Subjective Pt reports c/o pain w/ LLE movmnt - pt UIC upon entering room - pt reports she was using walker at home Rehab PT IP Eval Objective Appearance Patient Behavior Appropriate,Cooperative Patient Orientation Place,Name,Birthday,Year Difficulty following instructions mild Speech Pattern Clear,Appropriate Ambulation Patient Able to Ambulate Yes Ambulation Observation IP General Gait Pattern Observation Antalgic Gait Ambulation Distance (feet) 10 Ambulation Assistive Device Rolling Walker Ambulation Ability Contact Guard/Hand Hold Balance Ability to Arise Unable Sitting Balance Steady, safe Standing Balance Steady, wide stance Dynamic Sitting Balance Ability Good Dynamic Standing Balance Ability Fair Transfers Sit to Stand Bed Transfer Ability Maximum x 1 (75% assist) Rehab PT IP prob,goals,plan Problems Date of Evaluation: 09/09/21 PT IP Problems Bed Mobility,Transfers,Gait, Balance,Self care,Safety Rehab Potential Rehab Potential Fair Equipment Needs Assistive Devices Rolling / Wheeled Walker Plan PT Intervention Plan Bed Mobility,Transfers,Gait, Balance,Self care,Safety, Therapeutic Exercise PT Plan Frequency BID Duration LOS Discharge Goals Sit to Stand Chair Transfer Ability Moderate x 1 (50% assist) Ambulation Assistive Device Rolling Walker Ambulation Distance (feet) 35 Discharge Plan PT Discharge Plan Pt will benefit from skilled therapy while IP at [facility] but will require skilled therapy at SNF to allow return to PLOF and return to living independent G -code Required Yes Eval Complexity Eval Charge Codes 63328 - Moderate Complexity G Codes PT Current Status
--- NOTE | 2021-09-09 11:07 | SW/DCPLANNER ---
Addendum entered by [facility] 09/11/21 09:15: This patient will discharge to [facility] today SNF level of care. [facility]ao/ [facility] stated insurance has approved this patient. COVID swab has been collected this AM and resulted negative: faxed to [facility]. Addendum entered by [facility] 09/10/21 09:32: Per Britt with [facility]: precert is still pending at this time. Addendum entered by [facility] 09/09/21 15:29: Britt with [facility] has stated that she can accept this patient pending precert. Per Britt precert has been started today. Addendum entered by [facility] 09/09/21 15:10: [facility] is not in network with this patient's insurance at this time. [facility] is reviewing patient information. Addendum entered by [facility] 09/09/21 14:01: Sada genao/ [facility] stated that she is not in network with patient's insurance. Patient agrees with placement at [facility]. Patient information has been faxed to [facility] and [facility] at this time. Original Note: I spoke with this patient regarding discharge plans. PT/OT has recommended SNF level of care at time of discharge. Patient stated that he resides at home alone and has been to [facility] in the past. Patient is interested in returning to [facility] once medically stable for discharge. Patient information has been faxed to [facility]/ [facility]. I will continue to follow up with patient and facility.
[2021-09-09 11:37] LABS: POC Glucose,Bedside 173 (70-110)
[2021-09-09 17:15] LABS: POC Glucose,Bedside 134 (70-110)
--- NOTE | 2021-09-09 18:34 | PC.NURSE ---
PT IS ALERT AND ORIENTED X4. WAS MEDICATED FOR PAIN PER MAR X1. [facility] WAS D/C TODAY AND PT HAS VOIDED.
[2021-09-09 20:03] LABS: POC Glucose,Bedside 240 (70-110)
--- NOTE | 2021-09-10 03:48 | PC.NURSE ---
Patient has tolerated turns well this RN's shift. Patient has ambulated with assistance x2 with a walker to the bedside commode to void. Patient tolerated ambulation fair. Patient has rested well this RN's shift requiring only 1 dose of pain medication. No acute events have occurred thus far.
[2021-09-10 04:00] VITALS: BP 111/63; PULSE 85; RESP 14; TEMP 36.8; O2SAT 97
[2021-09-10 04:47] VITALS: BMI 21.8
[2021-09-10 06:21] LABS: POC Glucose,Bedside 157 (70-110)
[2021-09-10 06:34] LABS: Basophils % 0.5 % (0.1-2.0); Eosinophils % 0.2 % (0.1-12.0); Hematocrit 27.4 % (37.0-47.0); Lymphocytes # 1.1 K/mm3 (0.7-4.5); Mean Corpuscular HGB Conc 32.8 g/dL (31.8-35.4); Mean Corpuscular Hemoglobin 26.9 pg (27.0-31.2); Mean Corpuscular Volume 82.1 fl (81-99); Mean Platelet Volume 9.3 fl (7.4-10.4); Monocytes # 0.5 K/mm3 (0.1-1.0); Monocytes % 6.1 % (1.7-9.3); Neutrophils # 7.3 K/mm3 (1.8-7.8); Neutrophils % 81.3 % (37.0-80.0); Platelet Count 166 K/mm3 (142-424); Red Blood Count 3.34 M/mm3 (4.20-5.40); Red Cell Distribution Width 16.2 % (11.5-17.5); White Blood Count 8.9 K/mm3 (4.8-10.8)
[2021-09-10 06:40] LABS: Anion Gap 7.4 mEq/L (5-15); Blood Urea Nitrogen 15 mg/dl (7-17); Calcium 8.4 mg/dl (8.4-10.2); Carbon Dioxide 28 mmol/L (22.0-30.0); Chloride 102 mmol/L (98-107); Creatinine Clearance Estimated 49 mL/min (50-200); Estimated Glomerular Filt Rate 156 ml/min (>60); GFR (African American) 189 ML/MIN (>60); Glucose 143 mg/dl (74-100); Potassium 3.4 mmoL/L (3.5-5.1); Sodium 134 mmol/L (136-145)
[2021-09-10 08:00] VITALS: BP 129/59; PULSE 95; RESP 16; TEMP 36.7; O2SAT 96; O2SAT 97
--- NOTE | 2021-09-10 09:10 | HMH.ACPN2 ---
Internal Medicine - PN: Subj *Date: 09/10/21 *Time: 10:17 Interval history: 71-year-old female patient sitting up in recliner. Elastoplast dressing clean dry and intact to left hip left knee immobilizer in place. She reports she is feeling better pain is well controlled she reports only taking 1 p.o. pain medication last night. Discussed discharge to rehab facility, she is in agreement with this and discharge planning in process. Exam Vital signs and Labs for Last 24 Hours: Temp Pulse Resp BP Pulse Ox 98.3 F 85 14 111/63 97 09/10/21 04:00 09/10/21 04:00 09/10/21 04:00 09/10/21 04:00 09/10/21 04:00 Laboratory Results - last 24 hr 09/09/21 11:28: POC Glucose 173 H 09/09/21 17:06: POC Glucose 134 H 09/09/21 19:56: POC Glucose 240 H 09/10/21 05:50: WBC 8.9, RBC 3.34 L, Hgb 9.0 L D, Hct 27.4 L, MCV 82.1, MCH 26.9 L, MCHC 32.8, RDW 16.2, Plt Count 166, MPV 9.3, Neut % (Auto) 81.3 H, Lymph % (Auto) 12.0, Hall % (Auto) 6.1, Eos % (Auto) 0.2, Baso % (Auto) 0.5, Neut # (Auto) 7.3, Lymph # (Auto) 1.1, Hall # (Auto) 0.5, Eos # (Auto) 0.0, Baso # (Auto) 0.0 09/10/21 05:50: Sodium 134 L, Potassium 3.4 L, Chloride 102, Carbon Dioxide 28, Anion Gap 7.4, BUN 15 D, Creatinine 0.40 L, Estimated Creat Clear 49, Estimated GFR 156, Est GFR ( Amer) 189, Glucose 143 H, Calcium 8.4 09/10/21 06:14: POC Glucose 157 H I & O for Last 24 hours: Intake & Output 09/07/21 09/08/21 09/09/21 09/10/21 23:59 23:59 23:59 23:59 Intake Total 2926 / 2926 2926 / 2926 Output Total 1850 / 2400 1950 / 1950 650 / 650 Balance 1076 / 526 976 / 976 -650 / -650 Weight 135 lb 135 lb 2.012 oz 134 lb 7.712 oz 136 lb 0.177 oz - Constitutional no acute distress - *Routine HEENT Exam Head: Present: normocephalic Eye: Present: EOMI ENT: Present: mucous membranes moist - *Routine Neck Exam Present: trachea midline. Absent: tracheal deviation - *Routine Respiratory Exam Present: wheezes. Absent: accessory muscle use - *Routine Cardiovascular Exam Present: RRR - *Routine Abdominal Exam Present: soft, normoactive bowel sounds. Absent: tenderness, firm - *Routine Extremities Exam Present: full ROM, pulses intact. Absent: cyanosis, clubbing - *Routine Skin Exam Present: cyanosis, dry, warm, wounds. Absent: intact, erythema - *Routine Neurological Exam Present: alert, oriented X3. Absent: motor deficit - Routine Psychiatric Exam Present: normal affect, normal thought process. Absent: visual hallucinations Assessment and Plan (1) Closed left hip fracture Start date: 09/07/21 Start time: 23:00 Status: Acute Qualifiers: Encounter type: initial encounter Qualified Code(s): S72.002A - Fracture of unspecified part of neck of left femur, initial encounter for closed fracture Category: Medical Code(s): S72.002A - Fracture of unspecified part of neck of left femur, initial encounter for closed fracture (2) Fall Status: Acute Qualifiers: Encounter type: initial encounter Qualified Code(s): W19.XXXA - Unspecified fall, initial encounter Category: Medical Code(s): W19.XXXA - Unspecified fall, initial encounter (3) LEMON (nonalcoholic steatohepatitis) Status: Acute Category: Medical Code(s): K75.81 - Nonalcoholic steatohepatitis (LEMON) (4) Type 2 diabetes mellitus with hyperglycemia, without long-term current use of insulin Status: Acute Category: Medical Code(s): E11.65 - Type 2 diabetes mellitus with hyperglycemia (5) HTN (hypertension) Status: Chronic Qualifiers: Hypertension type: primary hypertension Qualified Code(s): I10 - Essential (primary) hypertension Category: Medical Code(s): I10 - Essential (primary) hypertension - Assessment and plan all Dx Assessment and Plan for all problems:: Rounded with Dr. Bass, all orders per Dr. Bass: 1. Planning for discharge 2. Working with PT/OT 3. Ortho follow-up
[2021-09-10 11:01] LABS: POC Glucose,Bedside 141 (70-110)
--- NOTE | 2021-09-10 13:05 | HMH.ORTHPN ---
Subjective Date: 09/10/21 <ArayaDebora salinas 09/10/21 13:10> Time: 13:00 <QuianaDebora 09/10/21 13:10> Principal diagnosis: left femoral neck fracture s/p left hip hemiarthroplasty <ArayaDebora salinas 09/10/21 13:10> Interval history: Patient is a 71-year-old female who underwent an uneventful cemented left hip hemiarthroplasty 09/08/2021. Today the patient is postop day #2. This afternoon she is sitting comfortably in a chair at the bedside. She states that she has some pain/soreness in her left hip as to be expected, but states that it is well controlled with as needed oral pain medication. She states that she is eating and drinking well and denies any episodes of nausea or vomiting. She reports she has been ambulating with the use of a walker and assistance of physical therapy and that this has been going well. She denies any history of fevers, chills, rigors, or distal numbness/tingling. She denies any other symptoms or concerns at this time. <Debora Araya 09/10/21 13:10> PN: Obj Ex Vital signs: Temp Pulse Resp BP Pulse Ox 99.0 F 96 H 17 147/67 H 98 09/10/21 16:00 09/10/21 16:00 09/10/21 16:00 09/10/21 16:00 09/10/21 16:00 <Fahad Acosta - 09/10/21 18:02> Temp Pulse Resp BP Pulse Ox 98.0 F 95 H 16 129/59 L 97 09/10/21 08:00 09/10/21 08:00 09/10/21 08:00 09/10/21 08:00 09/10/21 08:00 <Debora Araya 09/10/21 13:10> - Constitutional no acute distress, cooperative <Debora Araya 09/10/21 13:10> - Routine HEENT Exam Head: Present: normocephalic, atraumatic <Debora Araya 09/10/21 13:10> Eye: Present: EOMI, PERRL <Debora Araya 09/10/21 13:10> ENT: Present: mucous membranes moist <QuianaDebora Josiah 09/10/21 13:10> - Routine Neck Exam Present: supple, full ROM, trachea midline. Absent: JVD, lymphadenopathy <Debora Araya 09/10/21 13:10> - Routine Respiratory Exam Absent: accessory muscle use, respiratory distress <Debora Araya 09/10/21 13:10> Comments: Symmetric chest movement, able to speak in complete sentences <Debora Araya 09/10/21 13:10> - Routine Cardiovascular Exam Present: RRR. Absent: JVD <QuianaDebora Josiah 09/10/21 13:10> Comments: Normal peripheral pulses <Debora Araya 09/10/21 13:10> - Routine Abdominal Exam Present: soft. Absent: tenderness <QuianaDebora 09/10/21 13:10> - Routine Extremities Exam Comments: Upon examination of the lower extremities: The limb lengths are equal. Dressings present over the left hip are clean, dry, and intact. No evidence of drainage or bleeding noted. There is a knee immobilizer in place. Attempted movements of the left hip are somewhat painful. Thigh and calf are soft and nontender; Homans' sign is negative. No clinical evidence of DVT noted. Posterior tibial pulse 2+; capillary refill is brisk. Sensation to light touch is grossly intact throughout. Patient is actively mobilizing the foot, ankle, and toes. <Debora Araya 09/10/21 13:10> - Routine Skin Exam Present: intact, warm, normal turgor. Absent: cyanosis, erythema, lesions, jaundice <Debora Araya 09/10/21 13:10> - Routine Neurological Exam Present: alert, oriented X3, CN II-XII intact, moving all extremities, normal tone, normal speech. Absent: sensory deficit, motor deficit, altered mental status <Debora Araya 09/10/21 13:10> - Routine Psychiatric Exam Present: normal affect, cooperative <Debora Araya 09/10/21 13:10> - Urinary Catheter Management Mckeon Cath placed during this visit: no <Fahad Acosta JR - 09/10/21 18:02> no <Debora Araya 09/10/21 13:15> Urethral indwelling: No <Debora Araya - 09/10/21 13:10> Progress Note: A&P (1) Closed left hip fracture Status: Acute (2) Fall Status: Acute (3) LEMON (nonalcoholic steatohepatitis) Status: Acute (4) Type 2 diabetes mellitus with hypergly
--- NOTE | 2021-09-10 14:26 | PC.NURSE ---
rounded on patient. no concerns with medications or plan of care. no needs voiced
[2021-09-10 16:00] VITALS: BP 147/67; PULSE 96; RESP 17; TEMP 37.2; O2SAT 98
[2021-09-10 16:10] LABS: POC Glucose,Bedside 173 (70-110)
--- NOTE | 2021-09-10 16:56 | PC.NURSE ---
PT IS A&O X4. HAS BEEN UP TO THE CHAIR AND BEDSIDE COMMODE SEVERAL TIMES THIS SHIFT WITH 1 ASSIST AND THE WALKER. TOLERATED WELL. SHE WAS MEDICATED FOR PAIN 1X THIS SHIFT PER MAR. NO OTHER COMPLAINTS AT THIS TIME. WILL CONTINUE TO MONITOR.
[2021-09-10 20:00] VITALS: O2SAT 97
[2021-09-10 20:42] LABS: POC Glucose,Bedside 298 (70-110)
--- NOTE | 2021-09-11 03:00 | PC.NURSE ---
Patient has rested well this RN's shift. Patient remains on room air. Patient has not required pain medication thus far. Patient's surgical site remains C/D/I.
[2021-09-11 04:00] VITALS: BP 130/58; PULSE 94; RESP 16; TEMP 36.7; O2SAT 96
[2021-09-11 05:00] VITALS: BMI 22.6
[2021-09-11 07:07] LABS: Basophils % 0.4 % (0.1-2.0); Eosinophils # 0.1 K/mm3 (0.0-0.4); Eosinophils % 0.7 % (0.1-12.0); Hematocrit 25.4 % (37.0-47.0); Hemoglobin 8.3 g/dL (12.2-16.2); Lymphocytes # 1.3 K/mm3 (0.7-4.5); Lymphocytes % 17.7 % (10-50); Mean Corpuscular HGB Conc 32.8 g/dL (31.8-35.4); Mean Corpuscular Volume 82.3 fl (81-99); Mean Platelet Volume 9.3 fl (7.4-10.4); Monocytes # 0.5 K/mm3 (0.1-1.0); Monocytes % 7.1 % (1.7-9.3); Neutrophils # 5.2 K/mm3 (1.8-7.8); Neutrophils % 74.1 % (37.0-80.0); Platelet Count 150 K/mm3 (142-424); Red Blood Count 3.09 M/mm3 (4.20-5.40); Red Cell Distribution Width 16.3 % (11.5-17.5)
[2021-09-11 07:08] LABS: Anion Gap 8.5 mEq/L (5-15); Blood Urea Nitrogen 14 mg/dl (7-17); Calcium 8.1 mg/dl (8.4-10.2); Carbon Dioxide 28 mmol/L (22.0-30.0); Chloride 102 mmol/L (98-107); Creatinine Clearance Estimated 51 mL/min (50-200); Estimated Glomerular Filt Rate 156 ml/min (>60); GFR (African American) 189 ML/MIN (>60); Glucose 118 mg/dl (74-100); Potassium 3.5 mmoL/L (3.5-5.1); Sodium 135 mmol/L (136-145)
[2021-09-11 08:00] VITALS: BP 134/63; PULSE 94; RESP 16; TEMP 36.8; O2SAT 97
[2021-09-11 08:25] LABS: Coronavirus 19, PCR Not Detected (NotDetected); Influenza A, PCR Not Detected (NotDetected); Influenza B, PCR Not Detected (NotDetected)
--- NOTE | 2021-09-11 08:49 | HMH.ORTHPN ---
Subjective Date: 09/11/21 Time: 08:30 Principal diagnosis: left femoral neck fracture s/p left hip hemiarthroplasty Interval history: Patient is a 71-year-old female who underwent an uneventful cemented left hip hemiarthroplasty 09/08/2021. Today the patient is postop day #3. This morning the patient is lying comfortably in bed. She states that she has some pain/soreness in her left hip as to be expected, but states that it is well controlled with as needed oral pain medication. She states that she is eating and drinking well and denies any episodes of nausea or vomiting. She reports she has been ambulating with the use of a walker and assistance of physical therapy and that this has been going well. She denies any history of fevers, chills, rigors, or distal numbness/tingling. She denies any other symptoms or concerns at this time. PN: Obj Ex Vital signs: Temp Pulse Resp BP Pulse Ox 98.3 F 94 H 16 134/63 97 09/11/21 08:00 09/11/21 08:00 09/11/21 08:00 09/11/21 08:00 09/11/21 08:00 - Constitutional no acute distress, cooperative - Routine HEENT Exam Head: Present: normocephalic, atraumatic Eye: Present: EOMI, PERRL ENT: Present: mucous membranes moist - Routine Neck Exam Present: supple, full ROM, trachea midline. Absent: JVD, lymphadenopathy - Routine Respiratory Exam Absent: accessory muscle use, respiratory distress Comments: Symmetric chest movement, able to speak in complete sentences - Routine Cardiovascular Exam Present: RRR Comments: Normal peripheral pulses - Routine Abdominal Exam Present: soft. Absent: tenderness - Routine Extremities Exam Comments: Upon examination of the lower extremities: The limb lengths are equal. Dressings present over the left hip are clean, dry, and intact. No evidence of drainage or bleeding noted. There is a knee immobilizer in place. Out of the dressings, the surgical incision is healing well. No erythema, induration, bleeding, purulent drainage, or other signs of infection noted. There is a Dermabond Prineo skin closure system in place. Attempted movements of the left hip are somewhat painful. Thigh and calf are soft and nontender; Homans' sign is negative. No clinical evidence of DVT noted. Posterior tibial pulse 2+; capillary refill is brisk. Sensation to light touch is grossly intact throughout. Patient is actively mobilizing the foot, ankle, and toes. - Routine Skin Exam Present: intact, warm, normal turgor. Absent: cyanosis, erythema, lesions, jaundice - Routine Neurological Exam Present: alert, oriented X3, CN II-XII intact, moving all extremities, normal tone, normal speech. Absent: sensory deficit, motor deficit, altered mental status - Routine Psychiatric Exam Present: normal affect, cooperative - Urinary Catheter Management Mckeon Cath placed during this visit: no Urethral indwelling: No Progress Note: A&P (1) Closed left hip fracture Status: Acute (2) Fall Status: Acute (3) LEMON (nonalcoholic steatohepatitis) Status: Acute (4) Type 2 diabetes mellitus with hyperglycemia, without long-term current use of insulin Status: Acute (5) HTN (hypertension) Status: Chronic Assessment and Plan for All Diagnoses:: I have discussed the clinical findings and progress with the patient. Overall this morning she is doing well from an orthopedic standpoint can be discharged when medically appropriate. I have changed her surgical dressings today and the surgical incision is healing well; no signs of infection noted. I have applied a sterile bordered gauze dressing over the surgical incision. She has a Dermabond Prineo skin closure system in place, I have given the patient appropriate care instructions and advised her not to remove the Dermabond Prineo. The sterile bordered gauze dressing may be removed in a couple of days and at that stage it is permissible for the patient to get the surgical incision wet with show
--- NOTE | 2021-09-11 09:19 | HMH.DCSUM ---
General - General Admission date:: 09/08/21 Discharge date: 09/11/21 HPI HPI: 71-year-old female patient arrived to the [facility] emergency department via EMS and left leg was externally rotated and shortened, there is also pain with left hip palpation. Reports waking in the middle of the night, getting out of bed to get some to eat, and following and fracturing her left hip. Left hip x-ray reveals Acute subcapital fracture of the proximal left femur. She does have a history of hypertension and diabetes, cardiology consult Hospital Course Hospital Course: Abnormal Lab Results 09/10/21 10:54: POC Glucose 141 H 09/10/21 16:00: POC Glucose 173 H 09/10/21 20:35: POC Glucose 298 H 09/11/21 06:35: RBC 3.09 L, Hgb 8.3 L, Hct 25.4 L 09/11/21 06:35: Sodium 135 L, Creatinine 0.40 L, Glucose 118 H, Calcium 8.1 L ortho consult:Assessment and Plan for All Diagnoses:: I have discussed the clinical findings and progress with the patient. Overall this morning she is doing well from an orthopedic standpoint can be discharged when medically appropriate. I have changed her surgical dressings today and the surgical incision is healing well; no signs of infection noted. I have applied a sterile bordered gauze dressing over the surgical incision. She has a Dermabond Prineo skin closure system in place, I have given the patient appropriate care instructions and advised her not to remove the Dermabond Prineo. The sterile bordered gauze dressing may be removed in a couple of days and at that stage it is permissible for the patient to get the surgical incision wet with shower water; after showering, pat the incision dry and do not apply any lotions or creams. Continue PT/OT and standard precautions for posterior approach to the hip; patient may ambulate weightbearing as tolerated on the left lower extremity. Continue DVT prophylaxis as ordered for 4 weeks postoperatively. Continue use of the abduction wedge for 6 weeks postoperatively when lying down/sleeping; continue use of the knee immobilizer when lying down/sleeping for 2 weeks postoperatively. Continue rest, ice, and as needed pain medication. Case management team coordinating discharge planning; patient is provisionally being discharged to [facility] for short-term rehabilitation. Continue medical management as per Dr. Laura/Dr. Bass. She will be seen in our office for her first postoperative visit in 2 weeks for repeat x-ray and reevaluation/wound check; the patient has an appointment scheduled with Dr. Acosta on 09/18/2021 at 13:00. Discharge Plan (1) Closed left hip fracture-surgery completed-left hip hemiarthroplasty -ortho recommendations:Postoperatively plan for weightbearing as tolerated, posterior hip precautions, DVT prophylaxis: Lovenox 30 twice daily for 4 weeks, 23 hours antibiotics, PT/OT. Plan for 2-week follow-up for wound check and repeat x-rays. She has a Dermabond Prineo skin closure system in place, I have given the patient appropriate care instructions and advised her not to remove the Dermabond Prineo. The sterile bordered gauze dressing may be removed in a couple of days and at that stage it is permissible for the patient to get the surgical incision wet with shower water; after showering, pat the incision dry and do not apply any lotions or creams. Continue PT/OT and standard precautions for posterior approach to the hip; patient may ambulate weightbearing as tolerated on the left lower extremity. Continue DVT prophylaxis as ordered for 4 weeks postoperatively. Continue use of the abduction wedge for 6 weeks postoperatively when lying down/sleeping; continue use of the knee immobilizer when lying down/sleeping for 2 weeks postoperatively. Continue rest, ice, and as needed pain medication (2) Fall-left femoral neck fracture-follow ortho recommendations as stated above (3) LEMON (nonalcoholic steatohepatitis)-continue medical management and me
[2021-09-11 11:26] LABS: POC Glucose,Bedside 135 (70-110)
[2021-09-11 11:26] LABS: POC Glucose,Bedside 176 (70-110)
--- NOTE | 2021-09-11 13:17 | PC.NURSE ---
called report to Angie rand Atkins at 1030 & called [facility]'s ambulance service at [phone]
--- NOTE | 2021-09-15 13:45 | CARE MANAGER ---
contacted nurse at [place]. She states that patient is having less pain today than previously. She is partcipiating in therapy and doing well.
== END 2021-09-11 12:30 | disposition home or self-care (01) | DRG 522 ==
LOC: ER 09-08 00:36 → 2ND 09-08 01:43
PROVIDERS: Nurse Practitioner Family; Orthopaedic Surgery; Admitting Provider Emergency Medicine; Emergency Provider Emergency Medicine; PCP Emergency Medicine; Visit Provider Emergency Medicine
PROC: 0SRS0J9 Replacement of Left Hip Joint, Femoral Surface with Synthetic Substitute, Cemented, Open Approach (ICD-10-PCS; principal; 2021-09-08 17:00)
DX: S72.012A Unspecified intracapsular fracture of left femur, initial encounter for closed fracture (principal); W19.XXXA Unspecified fall, initial encounter; K75.81 Nonalcoholic steatohepatitis (NASH); I10 Essential (primary) hypertension; Z79.84 Long term (current) use of oral hypoglycemic drugs; E11.65 Type 2 diabetes mellitus with hyperglycemia; F32.A Depression, unspecified; F41.9 Anxiety disorder, unspecified
CPT/HCPCS: 27236; 36415; 51702; 70450; 71045; 72125; 73502; 73700; 80048; 80053; 81001; 82962; 85014; 85018; 85025; 85610; 93005; 96375; 97110; 97116; 97162; 97165; 97530; 99285; C1713; C9803; J2405; J3370; U0003; U0005

== ENCOUNTER → 2021-09-18 12:27 | Outpatient (CLI) | payer MEDICARE, OTHER, SELFPAY ==
--- NOTE | 2021-09-18 12:31 | XR_ITS ---
FINAL REPORT CLINICAL HISTORY: s/p hip COMPARISON: September 08, 2021 FINDINGS: LEFT HIP Two views of the left hip demonstrate no acute fracture or dislocation. There are postoperative changes from left hip arthroplasty. The acetabular component of the hardware has rotated laterally. The visualized bony structures are well aligned. No soft tissue abnormality is seen. IMPRESSION: Acetabular component of the hardware has rotated laterally since the prior exam. Reviewed, Interpreted and Dictated by Gabriel Delgado III, MD Transcribed by Kalyn Vargas Authenticated and [facility]
== END ==
PROVIDERS: PCP Emergency Medicine; Visit Provider Orthopaedic Surgery
DX: S72.002A Fracture of unspecified part of neck of left femur, initial encounter for closed fracture (principal)
CPT/HCPCS: 73502

== ENCOUNTER → 2021-10-30 11:22 | Outpatient (CLI) | payer MEDICARE, OTHER, SELFPAY ==
--- NOTE | 2021-10-30 11:28 | XR_ITS ---
FINAL REPORT CLINICAL HISTORY: hip pain COMPARISON: 09/18/2021 FINDINGS: LEFT HIP Three views were obtained. There is no acute fracture or dislocation. The patient is status post total joint prosthesis. No soft tissue abnormality is identified. IMPRESSION: No acute process. Reviewed, Interpreted and Dictated by Cody Davis MD Transcribed by Guera Nguyen Authenticated and [facility]
== END ==
PROVIDERS: PCP Emergency Medicine; Visit Provider Orthopaedic Surgery
DX: M25.552 Pain in left hip (principal)
CPT/HCPCS: 73502

== ENCOUNTER 2021-11-11 12:30 | Outpatient (RCR) | payer MEDICARE, OTHER, SELFPAY ==
--- NOTE | 2021-11-11 14:05 | HMH.PTOPEV ---
PT Outpatient Evaluation Rehab PT Outpatient Evaluation Start: 11/11/21 13:04 Freq: Status: Active Protocol: Document 11/11/21 13:51 COLTEN (Rec: 11/11/21 14:05 KARENLOBITOMANASA [id number]) Electronically Signed By Yony Sood, PT 11/11/21 13:51 Outpatient Therapy Subjective History Subjective History Patient is a 71 year old female presenting to outpatient PT with reports of L hip pain S/P L hemiarthroplasty secondary to femoral neck fracture. Initial injury occurred at home. Patient was going to get something out of the refrigerator when she passed out and fell. She has previously been seen by home health PT for approx 2 months. Comorbidities include hx of heart murmur, diabetes, HTN and HL. Chief Complaint Pain,Stiff,Weakness Symptom Type Other Symptoms Relieved By Rest/Positioning,Prescription Meds Symptoms Aggravated By Standing,Physical Activity, Walking Prior Functional Limitations None Current Functional Limitations Housework,Sleeping,Standing, Squatting,Walking,Balance, Bending/Stooping Symptom Description Intermittent Level of pain today (0-10) 0 Pain scale - at its best (0-10) 0 Pain scale - at its worst (0-10) 5 Hip/Knee Eval Gait Observation General Gait Pattern Observation Antalgic Gait,Shuffling Step, Decrease Weight Bear (L) Assistive Device Assistive Devices Rolling / Wheeled Walker Palpation Tenderness left Hip Palpation Findings Tenderness MMT Hip Strength Reason Not Measured Orthopedic Precautions Knee Extension Strength Grade 4- Good- Knee Flexion Strength Grade 4- Good- ROM Hip ROM Reason Not Measured Orthopedic Precautions Knee ROM Reason Not Measured Within Functional Limits Outpatient Therapy Assessment Impairments Problems/Impairmments Palpation Tenderness,Impaired Range of Motion,Impaired Strength,Impaired Endurance, Impaired Transfers,Impaired Gait Pattern,Impaired Walking, Impaired Standing,Impaired Driving,Impaired Household Care,Impaired Stair C
== END 2021-11-11 12:35 | disposition home or self-care (01) ==
LOC: PT 12:30
PROVIDERS: PCP Emergency Medicine; Visit Provider Orthopaedic Surgery
DX: M25.552 Pain in left hip (principal); S72.002D Fracture of unspecified part of neck of left femur, subsequent encounter for closed fracture with routine healing; Z98.890 Other specified postprocedural states
CPT/HCPCS: 97163

== ENCOUNTER 2021-11-28 16:29 | Emergency (ER) | payer MEDICARE, MEDICAID, SELFPAY ==
[2021-11-28 16:30] VITALS: BP 177/74; PULSE 70; RESP 15; TEMP 36.8; O2SAT 96; BMI 22.6
--- NOTE | 2021-11-28 16:53 | HMH.EDANX ---
ED Disposition Clinical Impression: Anxiety reaction Depression Qualifiers: Depression Type: unspecified Qualified Code(s): F32.A - Depression, unspecified Disposition: Home, Self-Care Condition on Discharge: Good Instructions: Anxiety Disorders, Anxiety and Panic Attacks (Alternative Therapy) Additional Instructions: follow up pcp Referrals: Shaheen Laura MD [Primary Care Provider] - - Critical Care Critical Care Time: No Attestation: On 11/28/21, the high probability of a clinically significant, sudden or life threatening deterioration of the following system(s) required my full and direct attention, intervention and personal management. The time I documented below is in addition to time spent performing reported procedures but includes the following listed in this critical care notation. Medical Decision Making - Medical Records Medical records reviewed: Yes: I reviewed the patient's medical records. - Andrzej Inquiry Pt receiving controlled substance: No Vital Signs: 11/28/21 16:30 Temperature 98.2 F Temperature Source Oral Pulse Rate [Right Radial] 70 Respiratory Rate 15 Blood Pressure [Right Arm] 177/74 H Blood Pressure Mean [Right Arm] 108 Blood Pressure Source [Right Arm] Automatic Cuff Blood Pressure Position [Right Arm] Sitting 02 Sat by Pulse Oximetry 96 Oxygen Delivery Method Room Air Orders (Tests/Meds): ED MEDICATIONS Discontinued Medications Generic Name Dose Route Start Last Admin Trade Name Freq PRN Reason Stop Dose Admin Diazepam 5 mg 11/28/21 16:51 11/28/21 16:55 Diazepam 5mg Tablet PO 11/28/21 16:52 5 mg ONCE ONE Administration Anxiety HPI - General Chief Complaint: Anxiety Stated Complaint: Anxiety Time Seen by Provider: 11/28/21 16:53 Mode of Arrival: EMS Limitations: No Limitations Description of Symptoms (Recalled from ER Triage Doc. by RN): Pt c/o increased anxiety. Advises that she was sitting in her recliner at home when she began to feel more anxious than normal. Denies any CP or SOA. - History of Present Illness HPI narrative: anxiety and depression today, no specific cause, denies si reports nml intake/output, deniees any other physical complaints blood glugose 117 Onset (ago): month(s) Severity: moderate Quality: constant, intermittent History of similar episodes: Yes Provoking factors: none known Relieving factors: nothing Exacerbating factors: nothing Associated symptoms: denies other symptoms - Related Data Home Medications: Home Medications Medication Instructions Recorded Confirmed alpha lipoic acid 250 mg capsule 100 mg PO TID cap 06/22/21 11/09/21 Previous Rx's Medication Instructions Recorded bisacodyl 10 mg rectal suppository 10 mg RC DAILY PRN #12 each 10/02/21 docusate sodium 100 mg tablet 100 mg PO BID #60 tab 10/02/21 enoxaparin 30 mg/0.3 mL 30 mg SQ BID 5 Days #3 applic 10/02/21 subcutaneous syringe insulin aspart U-100 100 unit/mL 1 sliding scale dose SQ 10/02/21 (3 mL) subcutaneous pen USEASDIRECTD #15 ml insulin glargine 100 unit/mL (3 6 unit SQ HS 30 Days #1.8 ml 10/02/21 mL) subcutaneous pen lisinopril 5 mg tablet 5 mg PO HS #90 tab 10/02/21 metformin 1,000 mg tablet 1,000 mg PO BIDWMEAL #60 tab 10/02/21 oxycodone 5 mg tablet 5 mg PO Q4HP PRN #30 tab 10/02/21 quetiapine 25 mg tablet 25 mg PO HS #30 tab 10/02/21 venlafaxine 50 mg tablet 50 mg PO BID #60 tab 10/02/21 cariprazine 1.5 mg capsule 1.5 mg PO DAILY #30 cap 11/25/21 hydroxyzine pamoate 25 mg capsule 25 mg PO TID PRN #60 cap 11/25/21 Allergies/Adverse Reactions: Allergies Allergy/AdvReac Type Severity Reaction Status Date / Time aspirin Allergy Verified 11/09/21 13:16 acetaminophen [ACETAMINOPHEN] AdvReac d/t fatty Verified 11/09/21 13:16 liver [facility] History - Hepatitis A Screen Attestation statement:: This patient has been screened for Hepatitis A risk factors. Medical History: Reports:: Anxiety, Dep
[2021-11-28 17:00] VITALS: BP 156/75; PULSE 80; RESP 16; O2SAT 98
[2021-11-28 17:30] VITALS: BP 162/64; PULSE 73; RESP 16; O2SAT 98
[2021-11-28 18:00] VITALS: BP 155/67; PULSE 78; RESP 16; O2SAT 95
[2021-11-28 18:30] VITALS: BP 148/70; PULSE 79; RESP 16; O2SAT 96
[2021-11-28 18:42] VITALS: BP 148/70; PULSE 73; RESP 16; TEMP 36.7; O2SAT 97
== END 2021-11-28 18:43 | disposition home or self-care (01) ==
PROVIDERS: Emergency Provider Emergency Medicine; PCP Emergency Medicine
DX: F41.9 Anxiety disorder, unspecified (principal); F32.A Depression, unspecified
CPT/HCPCS: 99283

== ENCOUNTER → 2021-11-30 06:54 | Outpatient (CLI) | payer MEDICARE, OTHER, SELFPAY ==
[2021-11-30 18:37] LABS: Anion Gap 9.2 mEq/L (5-15); Blood Urea Nitrogen 21 mg/dl (7-17); Calcium 9.5 mg/dl (8.4-10.2); Carbon Dioxide 30 mmol/L (22.0-30.0); Chloride 103 mmol/L (98-107); Estimated Glomerular Filt Rate 156 ml/min (>60); GFR (African American) 189 ML/MIN (>60); Glucose 103 mg/dl (74-100); Potassium 4.2 mmoL/L (3.5-5.1); Sodium 138 mmol/L (136-145)
== END ==
PROVIDERS: PCP Emergency Medicine; Visit Provider Emergency Medicine
DX: Z01.89 Encounter for other specified special examinations (principal)
CPT/HCPCS: 80048

== ENCOUNTER → 2021-12-11 08:52 | Outpatient (CLI) | payer MEDICARE, MEDICAID, SELFPAY ==
--- NOTE | 2021-12-11 08:56 | XR_ITS ---
FINAL REPORT CLINICAL HISTORY: lt hip surgery s/p F/U COMPARISON: 10/30/2021 FINDINGS: LEFT HIP Three views of the left hip demonstrate left hip prosthesis. Anatomical alignment is preserved. There is no acute bony abnormality. No acute complications are seen. No soft tissue abnormality is seen. IMPRESSION: Left hip prosthesis. No change from prior exam. Reviewed, Interpreted and Dictated by Cody Davis MD Transcribed by Kalyn Vargas Authenticated and [facility]
== END ==
PROVIDERS: PCP Emergency Medicine; Visit Provider Orthopaedic Surgery
DX: S72.002A Fracture of unspecified part of neck of left femur, initial encounter for closed fracture (principal)
CPT/HCPCS: 73502

== ENCOUNTER 2022-01-23 07:23 | Emergency (ER) | payer MEDICARE, MEDICAID, SELFPAY ==
[2022-01-23] VITALS (7 sets, daily range): BP systolic 139–198; BP diastolic 67–84; PULSE 75–100; RESP 14–22; TEMP 36.8; O2SAT 95–98; BMI 20.3
--- NOTE | 2022-01-23 08:19 | HMH.EDGENADL ---
Discharge Plan Disposition Patient Disposition: Home, Self-Care Condition: Good Prescriptions Prescriptions: No Action alpha lipoic acid 100 MG Capsule 100 mg PO TID quetiapine [Seroquel] 25 mg tablet 25 mg PO DAILY Qty: 30 1RF lisinopril 5 mg tablet 5 mg PO HS Qty: 90 0RF metformin 1,000 mg tablet 1,000 mg PO BIDWMEAL Qty: 60 2RF venlafaxine 50 mg tablet 50 mg PO BID Qty: 60 2RF oxycodone 5 mg tablet 5 mg PO Q4HP PRN (Reason: Moderate To Severe Pain) Qty: 30 0RF hydroxyzine pamoate [Vistaril] 25 mg capsule 25 mg PO TID PRN (Reason: itching) Qty: 60 0RF Vraylar 1.5 mg capsule 1.5 mg PO DAILY Qty: 30 2RF Referrals Follow up/Referrals: Provider,Referral, [Referring] - See instructions Beverly Jimenez APRN [Nurse Practitioner] - See instructions Activity Restrictions/Add. Instructions Additional Instructions/Restrictions: Continue current medications. Follow-up with primary care provider. You may also follow-up with behavioral medicineBeverly. Call for appointment. Clinical Impressions Clinical Impression: Acute anxiety, Depression Instructions Patient Instructions: DI for Depression -- Adult, DI for Anxiety -- Adult Discharge ED Provider: Je Issa Adult [facility] General Chief complaint: Anxiety Stated complaint: Crying, scared, and nervous breakdown for 1 mn Time Seen by Provider: 01/23/22 08:00 Mode of Arrival: EMS Source of Information: Patient Limitations: No Limitations Description of Symptoms (Recalled from ER Triage Doc. by RN): Pt states that she has been feeling sad and crying x1 month. Advises that the feeling has worsened over the past week, being the worst this AM. Reports hx of anxiety and depression. Pt states I'm scare and don't know why. I just want to be in a fci . History of Present Illness HPI narrative: Brought in by ambulance. Patient states that she is having problems with anxiety and depression for the past month. Has been crying a lot. She says that she has not really been upset about anything in particular over the past month but acutely she says that a friend of hers had hernia surgery yesterday and she is worried about him. She says that she went to a neighbor today and asked them to call 911 to have her brought in. She would like to know if there is a medication she can get to calm her down. She is on medications for anxiety and depression but says she has not taken them this morning. She does not know the names or dosages of her medications for depression and anxiety. She does not know whether she takes them morning or night. She denies suicidal or homicidal ideation. She denies hallucinations. She says that she used to be a resident at [facility] for a long time, states she has been out for couple of years. She says she does not want to go back. She says she wants to be in a fci. She says that her next-door neighbor has an appointment for her on Tuesday to be entered into a fci permanently. She does not know which fci it is. She does not want to go home. She denies any acute illness. No URI symptoms. No GI symptoms. No chest pain or shortness of breath. No fever. No pain. Says that she had a recent hip replacement 3 months ago. She lives alone and says she has no family. Related Data Home Medications Medication Instructions Recorded Confirmed alpha lipoic acid 250 mg capsule 100 mg PO TID Supplement 06/22/21 12/11/21 Previous Rx's Medication Instructions Recorded lisinopril 5 mg tablet 5 mg PO HS Hypertension #90 tabs 10/02/21 metformin 1,000 mg tablet 1,000 mg PO BIDWMEAL Diabetes #60 10/02/21 tabs oxycodone 5 mg tablet 5 mg PO Q4HP PRN Moderate To 10/02/21 Severe Pain #30 tabs venlafaxine 50 mg tablet 50 mg PO BID Depression #60 tabs 10/02/21 cariprazine 1.5 mg capsule 1.5 mg PO DAILY #30 caps 11/25/21 (Marko) hydr
[2022-01-23 09:02] LABS: Basophils # 0.1 K/mm3 (0-0.2); Basophils % 1.2 % (0.1-2.0); Eosinophils % 0.2 % (0.1-12.0); Hemoglobin 12.4 g/dL (12.2-16.2); Lymphocytes # 1.1 K/mm3 (0.7-4.5); Lymphocytes % 16.7 % (10-50); Mean Corpuscular HGB Conc 32.7 g/dL (31.8-35.4); Mean Corpuscular Hemoglobin 27.4 pg (27.0-31.2); Mean Corpuscular Volume 83.7 fl (81-99); Mean Platelet Volume 8.9 fl (7.4-10.4); Monocytes # 0.3 K/mm3 (0.1-1.0); Monocytes % 4.9 % (1.7-9.3); Neutrophils # 5.2 K/mm3 (1.8-7.8); Platelet Count 203 K/mm3 (142-424); Red Blood Count 4.53 M/mm3 (4.20-5.40); Red Cell Distribution Width 17.1 % (11.5-17.5); White Blood Count 6.7 K/mm3 (4.8-10.8)
--- NOTE | 2022-01-23 09:10 | PC.NURSE ---
pt lying in bed, very nervous, stating the dr said he was going to give her some more meds
[2022-01-23 09:12] LABS: Chloride 101 mmol/L (98-107); Sodium 141 mmol/L (136-145)
[2022-01-23 09:15] LABS: Blood Urea Nitrogen 19 mg/dl (7-17); Creatinine Clearance Estimated 45 mL/min (50-200); Estimated Glomerular Filt Rate 121 ml/min (>60); GFR (African American) 146 ML/MIN (>60)
[2022-01-23 09:16] LABS: Calcium 9.1 mg/dl (8.4-10.2); Carbon Dioxide 32 mmol/L (22.0-30.0); Glucose 121 mg/dl (74-100)
--- NOTE | 2022-01-23 09:24 | PC.NURSE ---
Per MD request, spoke with Pharmacist to see if we stock Vraylar, which is one of pt's home meds, but was advised by Beverly, the pharmacist, that we do not stock that med.
--- NOTE | 2022-01-23 09:46 | PC.NURSE ---
Meal tray requested from dietary
--- NOTE | 2022-01-23 10:00 | PC.NURSE ---
took breakfast tray into pt, helped pt up on the side of the bed and helped her fix her food
--- NOTE | 2022-01-23 10:44 | PC.NURSE ---
pt still up on the side of the bed eating
--- NOTE | 2022-01-23 11:09 | PC.NURSE ---
called [facility] to see if they could transport pt back to there residence in [place],
--- NOTE | 2022-01-23 11:13 | PC.NURSE ---
[facility] called back and stated that they could not do it
--- NOTE | 2022-01-23 11:14 | PC.NURSE ---
called [facility] to see if they could take pt, currently on hold for rep.
--- NOTE | 2022-01-23 11:21 | PC.NURSE ---
called [facility] to call and see if they would transport pt to her residence, they advised that they had pt down as a wheel chair pt and they could not take wheel chair pts on the weekend. also, pt di not her chair with her so she would also have to have her chair for them to transport her back to her residence.
--- NOTE | 2022-01-23 11:32 | PC.NURSE ---
called pts neighbor to see if she could possibly call someone to come and pick up
--- NOTE | 2022-01-23 12:24 | PC.NURSE ---
Xiomara Hastings called back about patient, she is trying to find someone to come [place] picker patient, with no luck.
--- NOTE | 2022-01-23 12:31 | PC.NURSE ---
called [facility] dispatch for them to contact the [facility] and have him call us about pt
--- NOTE | 2022-01-23 12:36 | PC.NURSE ---
called back and stated that they were tied up with the [facility] and they was not available to help out with anything
--- NOTE | 2022-01-23 12:39 | PC.NURSE ---
called dispatch to have them have the [facility] to call and see if they could help in any way or knew someone that could transport the pt back
--- NOTE | 2022-01-23 12:59 | PC.NURSE ---
called pts pomo to see if she could come and get pt or see if she could find some one to take her home
--- NOTE | 2022-01-23 13:33 | PC.NURSE ---
pt sitting up in chair waiting on her ride to come
== END 2022-01-23 13:56 | disposition home or self-care (01) ==
PROVIDERS: Emergency Provider Emergency Medicine; PCP Emergency Medicine
DX: F32.A Depression, unspecified (principal); F41.9 Anxiety disorder, unspecified; E11.9 Type 2 diabetes mellitus without complications; Z87.440 Personal history of urinary (tract) infections; Z86.14 Personal history of Methicillin resistant Staphylococcus aureus infection; Z80.9 Family history of malignant neoplasm, unspecified
CPT/HCPCS: 80048; 85025; 96374; 99284

== ENCOUNTER 2022-02-01 13:53 | Emergency (ER) | payer MEDICARE, MEDICAID, SELFPAY ==
[2022-02-01] VITALS (9 sets, daily range): BP systolic 121–144; BP diastolic 68–79; PULSE 87–91; RESP 17–18; TEMP 36.7; O2SAT 97–100; BMI 21.7
--- NOTE | 2022-02-01 13:58 | CT_ITS ---
FINAL REPORT CLINICAL HISTORY: Fall COMPARISON: 08/2021 FINDINGS: Axial images of the head were obtained without contrast. Coronal reformatted images were also obtained. This study was performed with techniques to keep radiation doses as low as reasonably achievable (ALARA). Individualized dose reduction techniques using automated exposure control or adjustment of mA and/or kV according to the patient's size were employed. There are several small chronic lacunar infarcts in the basal ganglia. There is no evidence of intracranial hemorrhage or mass. The ventricular size is within normal limits. There is no evidence of shift of the midline structures. No skull abnormality is seen on the bone window images. IMPRESSION: No acute intracranial abnormality. Reviewed, Interpreted and Dictated by Gabriel Delgado III, MD Transcribed by Farhat Trujillo Authenticated and [facility]
--- NOTE | 2022-02-01 13:59 | XR_ITS ---
FINAL REPORT CLINICAL HISTORY: Fall COMPARISON: November 2021 FINDINGS: AP PELVIS: A single view of the pelvis was obtained. There is no acute fracture or dislocation. There has been left hip arthroplasty. There are mild degenerative changes of the right hip. Soft tissues are unremarkable. IMPRESSION: No acute process. Reviewed, Interpreted and Dictated by Gabriel Delgado III, MD Transcribed by Farhat Trujillo Authenticated and [facility]
--- NOTE | 2022-02-01 13:59 | XR_ITS ---
FINAL REPORT CLINICAL HISTORY: Fall COMPARISON: August 2021 FINDINGS: The heart size is normal. The mediastinum is within normal limits. There is no acute cardiopulmonary process. There is no pleural effusion. There is no pneumothorax. The bony thorax is intact. IMPRESSION: No acute cardiopulmonary process. Reviewed, Interpreted and Dictated by Gabriel Delgado III, MD Transcribed by Farhat Trujillo Authenticated and [facility]
--- NOTE | 2022-02-01 13:59 | CT_ITS ---
FINAL REPORT CLINICAL HISTORY: Fall COMPARISON: August 2021 FINDINGS: Axial CT images of the cervical spine were obtained without contrast. Sagittal and coronal reformatted images were also obtained. This study was performed with techniques to keep radiation doses as low as reasonably achievable (ALARA). Individualized dose reduction techniques using automated exposure control or adjustment of mA and/or kV according to the patient's size were employed. There is no evidence of fracture or dislocation. The bony alignment is normal. There are moderate degenerative changes with multilevel osteophytes. There is mild neural foraminal narrowing at multiple levels. There is mild central canal stenosis at C5-C6. No paraspinous soft tissue abnormality is seen. Limited images of the upper thorax are unremarkable. IMPRESSION: No fracture or acute bony abnormality identified. Reviewed, Interpreted and Dictated by Gabriel Delgado III, MD Transcribed by Farhat Trujillo Authenticated and [facility]
--- NOTE | 2022-02-01 14:24 | PC.NURSE ---
ED MD AT BEDSIDE FOR EVALUATION
--- NOTE | 2022-02-01 14:26 | HMH.EDFALL ---
Discharge Plan Disposition Patient Disposition: Home, Self-Care Chief Complaint: Fall Prescriptions Prescriptions: No Action alpha lipoic acid 100 MG Capsule 100 mg PO TID quetiapine [Seroquel] 25 mg tablet 25 mg PO DAILY Qty: 30 1RF lisinopril 5 mg tablet 5 mg PO HS Qty: 90 0RF metformin 1,000 mg tablet 1,000 mg PO BIDWMEAL Qty: 60 2RF venlafaxine 50 mg tablet 50 mg PO BID Qty: 60 2RF oxycodone 5 mg tablet 5 mg PO Q4HP PRN (Reason: Moderate To Severe Pain) Qty: 30 0RF hydroxyzine pamoate [Vistaril] 25 mg capsule 25 mg PO TID PRN (Reason: itching) Qty: 60 0RF Vraylar 1.5 mg capsule 1.5 mg PO DAILY Qty: 30 2RF Referrals Follow up/Referrals: Shaheen Laura MD [Primary Care Provider] - See instructions Activity Restrictions/Add. Instructions Additional Instructions/Restrictions: Please return in 7 to 10 days to have the staple removed at the urgent care. It is okay to shower. Do not soak in a bath. Clinical Impressions Clinical Impression: Laceration of scalp Instructions Patient Instructions: How to Prevent Falls Discharge ED Provider: Efren Ghotra Fall HPI General Chief Complaint: Fall Stated Complaint: fall Time Seen by Provider: 02/01/22 14:00 Mode of Arrival: EMS Limitations: No Limitations Description of Symptoms (Recalled from ER Triage Doc. by RN): Fall at [place] while trying to walk to the bathroom and slipped in urine. Denies any pain. History of Present Illness HPI Narrative: Patient is a 71-year-old female who presents with a fall. She states that earlier today she was walking to the bathroom and slipped and urine. She says that she hit the back of her head. She did not lose consciousness. She was able to ambulate afterwards.. She decided to come in to get checked out to be safe. She denies any neck or back pain. Denies any numbness or tingling to extremities. Denies any chest or abdominal pain. Denies any shortness of breath. Denies any pain with deep inspiration. She does not take any blood thinners or antiplatelets. Related Data Home Medications Medication Instructions Recorded Confirmed alpha lipoic acid 250 mg capsule 100 mg PO TID Supplement 06/22/21 12/11/21 Previous Rx's Medication Instructions Recorded lisinopril 5 mg tablet 5 mg PO HS Hypertension #90 tabs 10/02/21 metformin 1,000 mg tablet 1,000 mg PO BIDWMEAL Diabetes #60 10/02/21 tabs oxycodone 5 mg tablet 5 mg PO Q4HP PRN Moderate To 10/02/21 Severe Pain #30 tabs venlafaxine 50 mg tablet 50 mg PO BID Depression #60 tabs 10/02/21 cariprazine 1.5 mg capsule 1.5 mg PO DAILY #30 caps 11/25/21 (Vraylar) hydroxyzine pamoate 25 mg capsule 25 mg PO TID PRN itching #60 caps 11/25/21 (Vistaril) quetiapine 25 mg tablet (Seroquel) 25 mg PO DAILY #30 tabs 11/30/21 Allergies Allergy/AdvReac Type Severity Reaction Status Date / Time aspirin Allergy Verified 12/11/21 09:25 acetaminophen [ACETAMINOPHEN] AdvReac d/t fatty Verified 12/11/21 09:25 liver PFSH PFS Medical History (Updated 02/01/22 @ 17:09 by Efren Ghotra MD) Anxiety MRSA (methicillin resistant Staphylococcus aureus) T2DM (type 2 diabetes mellitus) UTI (urinary tract infection) Surgical History (Updated 12/11/21 @ 09:28 by Manuela Oconnor CMA) H/O colonoscopy History of cholecystectomy Hx of hysterectomy, total Family History (Updated 12/11/21 @ 09:28 by Manuela Oconnor CMA) Other Cancer Social History (Updated 12/11/21 @ 11:34 by Fahad Acosta JR, MD) Smoking Status: Never smoker second hand exposure: No alcohol intake: never substance use type: denies use current occupational status: retired and disabled Travel in the last 8 weeks: Inside the [place] household members: family housing: apartment current occupational exposures/hazards: No caffeine: No ROS Obtained: Yes All systems reviewed & no additional c
--- NOTE | 2022-02-01 14:55 | PC.NURSE ---
rounded on pt at this time, pt sitting up in bed. Pt states no needs at this time.
--- NOTE | 2022-02-01 16:11 | PC.NURSE ---
contacting rad to check on status of radiology results
--- NOTE | 2022-02-01 16:44 | PC.NURSE ---
[facility] called to check on pt they were updated and advised she would be going back to them
--- NOTE | 2022-02-01 17:20 | PC.NURSE ---
report given to d[facility]
--- NOTE | 2022-02-01 17:21 | PC.NURSE ---
notified [facility] of transport needed for pt. States they will send a crew up when there other truck gets back in town
== END 2022-02-01 17:50 | disposition home or self-care (01) ==
PROVIDERS: Emergency Provider Student in an Organized Health Care Education/Training Program; PCP Emergency Medicine
DX: S01.01XA Laceration without foreign body of scalp, initial encounter (principal); W01.0XXA Fall on same level from slipping, tripping and stumbling without subsequent striking against object, initial encounter; Y92.129 Unspecified place in nursing home as the place of occurrence of the external cause; Z79.899 Other long term (current) drug therapy; Z88.6 Allergy status to analgesic agent; F41.9 Anxiety disorder, unspecified; E11.9 Type 2 diabetes mellitus without complications; Z86.14 Personal history of Methicillin resistant Staphylococcus aureus infection; Z87.440 Personal history of urinary (tract) infections
CPT/HCPCS: 12001; 70450; 71045; 72125; 72170; 99284

== ENCOUNTER → 2022-04-16 09:07 | Outpatient (CLI) | payer MEDICARE, MEDICAID, SELFPAY ==
--- NOTE | 2022-04-16 09:13 | XR_ITS ---
FINAL REPORT CLINICAL HISTORY: s/p hip fracture COMPARISON: January 2022 FINDINGS: 2 views of the left hip and an AP pelvis were obtained. There is no acute fracture or dislocation. There is been left hip arthroplasty. There is chronic calcification superior to the greater trochanter. There are chronic appearing calcifications medially. IMPRESSION: Post arthroplasty changes, stable. Reviewed, Interpreted and Dictated by Gabriel Delgado III, MD Transcribed by Farhat Trujillo Authenticated and [facility]
== END ==
PROVIDERS: PCP Emergency Medicine; Visit Provider Orthopaedic Surgery
DX: S72.002A Fracture of unspecified part of neck of left femur, initial encounter for closed fracture (principal)
CPT/HCPCS: 73502

== ENCOUNTER → 2022-08-27 08:13 | Outpatient (CLI) | payer MEDICARE, MEDICAID, SELFPAY ==
--- NOTE | 2022-08-27 08:17 | XR_ITS ---
FINAL REPORT CLINICAL HISTORY: [facility], 0 complaints of hip pain. Pt had total replacement in 1999 something COMPARISON: 04/16/2022 FINDINGS: Left hip Three views were obtained. There is no acute fracture or dislocation. Post arthroplasty changes are noted, stable from previous. No soft tissue abnormality is identified. IMPRESSION: No acute process. Reviewed, Interpreted and Dictated by Byron Hernandes MD Transcribed by Guera Nguyen Authenticated and . [facility]
== END ==
PROVIDERS: PCP Emergency Medicine; Visit Provider Orthopaedic Surgery
DX: S72.002A Fracture of unspecified part of neck of left femur, initial encounter for closed fracture (principal); M25.552 Pain in left hip
CPT/HCPCS: 73502

== ENCOUNTER 2023-05-16 14:28 | Outpatient (CLI) | payer MEDICARE, MEDICAID, SELFPAY ==
[2023-05-16 15:02] LABS: Basophils # 0.1 K/mm3 (0-0.2); Basophils % 0.8 % (0.1-2.0); Eosinophils # 0.6 K/mm3 (0.0-0.4); Hematocrit 43.2 % (37.0-47.0); Hemoglobin 14.4 g/dL (12.2-16.2); Lymphocytes # 2.5 K/mm3 (0.7-4.5); Lymphocytes % 27.6 % (10-50); Mean Corpuscular HGB Conc 33.4 g/dL (31.8-35.4); Mean Corpuscular Volume 92.8 fl (81-99); Mean Platelet Volume 9.4 fl (7.4-10.4); Monocytes # 0.7 K/mm3 (0.1-1.0); Monocytes % 7.2 % (1.7-9.3); Neutrophils # 5.2 K/mm3 (1.8-7.8); Neutrophils % 57.3 % (37.0-80.0); Platelet Count 158 K/mm3 (142-424); Red Blood Count 4.65 M/mm3 (4.20-5.40); Red Cell Distribution Width 13.3 % (11.5-17.5); White Blood Count 9.1 K/mm3 (4.8-10.8)
[2023-05-16 15:09] LABS: Anion Gap 14.5 mEq/L (5-15); Blood Urea Nitrogen 21 mg/dl (7-17); Carbon Dioxide 29 mmol/L (22.0-30.0); Chloride 103 mmol/L (98-107); Estimated Glomerular Filt Rate 70 ml/min (>60); GFR (African American) 85 ML/MIN (>60); Potassium 4.5 mmoL/L (3.5-5.1); Sodium 142 mmol/L (136-145)
[2023-05-16 15:10] LABS: Glucose 62 mg/dl (74-100); Magnesium 1.8 mg/dl (1.6-2.3)
[2023-05-16 15:41] LABS: Thyroid Stimulating Hormone 0.53 uIU/mL (0.465-4.68)
== END 2023-05-16 23:59 ==
LOC: LAB.DROPOF 14:30
PROVIDERS: PCP Nurse Practitioner Family; Visit Provider Nurse Practitioner Family
DX: R79.9 Abnormal finding of blood chemistry, unspecified; R94.6 Abnormal results of thyroid function studies
CPT/HCPCS: 80048; 83735; 84443; 85025

== ENCOUNTER 2023-11-30 14:52 | Outpatient (CLI) | payer MEDICARE, SELFPAY ==
[2023-11-30 15:47] LABS: Microscopic, Urine URINE MICROSCOPIC (MICROSCOPIC)
[2023-11-30 15:59] LABS: Appearance,Urine SL CLOUDY (Clear); Bilirubin,Urine Negative (Negative); Blood, Urine Negative (Negative); Color,Urine YELLOW (Yellow); Glucose,Urine (UA) Negative (Negative); Ketones,Urine TRACE (Negative); Leukocyte Esterase,Urine Negative (Negative); Nitrate,Urine POSITIVE (Negative); Protein,Urine Negative (Negative); Specific Gravity, Urine >= 1.030 (1.005-1.030); Urobilinogen,Urine 0.2 EU/dl (0.2)
[2023-11-30 16:07] LABS: Bacteria,Urine 4+ /lpf
== END 2023-11-30 23:59 | disposition home or self-care (01) ==
LOC: LAB.DROPOF 14:53
PROVIDERS: PCP Internal Medicine Adolescent Medicine; Visit Provider Internal Medicine Adolescent Medicine
DX: R32 Unspecified urinary incontinence (principal); B96.20 Unspecified Escherichia coli [E. coli] as the cause of diseases classified elsewhere
CPT/HCPCS: 81001; 87086; 87088; 87186

== ENCOUNTER 2023-12-05 07:32 | Outpatient (CLI) | payer MEDICARE, SELFPAY ==
--- NOTE | 2023-12-05 07:37 | MM_ITS ---
PROCEDURE INFORMATION: Exam: MG Bilateral Screening 3D Mammography Exam date and time: 12/05/2023 7:49 AM Age: 73 years old Clinical indication: Screening examination TECHNIQUE: Imaging protocol: Bilateral Screening tomosynthesis and 2D mammography including computer-aided detection (CAD) when performed. COMPARISON: 1. MG MM DIG SCREENING MAMM BI W/CAD 07/17/2019 9:29 AM 2. MG SCBI MM Dig screening mamm BI w/CAD 06/26/2018 11:11 AM FINDINGS: MAMMOGRAPHY: Breast composition: The breasts are heterogeneously dense, which may obscure small masses. Mass: No suspicious masses. Architectural distortion: Postsurgical changes are redemonstrated breast. Calcifications: No suspicious calcifications. Asymmetric density: None. Skin thickening: None. Axillary adenopathy: None. IMPRESSION: No mammographic evidence of malignancy. Annual screening is recommended unless otherwise clinically indicated. ASSESSMENT: BI-RADS Category 2: Benign.
== END 2023-12-05 23:59 | disposition home or self-care (01) ==
LOC: RAD 07:33
PROVIDERS: PCP Internal Medicine Adolescent Medicine; Visit Provider Nurse Practitioner Family
DX: Z12.31 Encounter for screening mammogram for malignant neoplasm of breast (principal)
CPT/HCPCS: 77063; 77067

== ENCOUNTER 2024-02-21 16:28 | Outpatient (CLI) | payer MEDICARE, SELFPAY ==
[2024-02-21 16:35] LABS: Microscopic, Urine URINE MICROSCOPIC (MICROSCOPIC)
[2024-02-21 17:12] LABS: Appearance,Urine CLEAR (Clear); Bilirubin,Urine Negative (Negative); Blood, Urine 2+ (Negative); Color,Urine YELLOW (Yellow); Glucose,Urine (UA) Negative (Negative); Ketones,Urine TRACE (Negative); Leukocyte Esterase,Urine 1+ (Negative); Nitrate,Urine Negative (Negative); Protein,Urine 2+ (Negative); Specific Gravity, Urine 1.025 (1.005-1.030)
[2024-02-21 18:56] LABS: RBC,Urine TNTC #/hpf (0-3); WBC,Urine TNTC #/hpf (0-3)
[2024-02-21 18:57] LABS: Bacteria,Urine 4+ /lpf
== END 2024-02-21 23:59 | disposition home or self-care (01) ==
LOC: LAB.DROPOF 16:29
PROVIDERS: PCP Nurse Practitioner Family; Visit Provider Nurse Practitioner Family
DX: R30.0 Dysuria (principal)
CPT/HCPCS: 81001; 87086; 87088; 87186

== ENCOUNTER 2024-12-06 13:52 | Outpatient (CLI) | payer MEDICARE, MEDICAID, SELFPAY ==
--- NOTE | 2024-12-06 13:55 | MM_ITS ---
PROCEDURE INFORMATION: Exam: MG Bilateral Screening 3D Mammography Exam date and time: 12/06/2024 2:00 PM Age: 74 years old Clinical indication: Screening examination TECHNIQUE: Imaging protocol: Bilateral Screening tomosynthesis and 2D mammography including computer-aided detection (CAD) when performed. COMPARISON: 1. MG MM DIG SCREENING MAMM BI W/CAD 12/05/2023 7:49 AM 2. MG MM DIG SCREENING MAMM BI W/CAD 07/17/2019 9:29 AM FINDINGS: MAMMOGRAPHY: Breast composition: Mass: None. Architectural distortion: None. Calcifications: No suspicious calcifications. Stable coarse calcifications in the left upper outer quadrant Asymmetric density: Postsurgical changes of the right breast that are stable.. Skin thickening: None. Axillary adenopathy: None. IMPRESSION: No mammographic evidence of malignancy. Annual screening is recommended unless otherwise clinically indicated. ASSESSMENT: BI-RADS Category 2: Benign.
== END 2024-12-06 23:59 | disposition home or self-care (01) ==
LOC: RAD 13:53
PROVIDERS: PCP Nurse Practitioner Family; Visit Provider Nurse Practitioner Family
DX: Z12.31 Encounter for screening mammogram for malignant neoplasm of breast (principal); R92.1 Mammographic calcification found on diagnostic imaging of breast
CPT/HCPCS: 77063; 77067